=== PATIENT | male | born 1955 | race Caucasian/White ===

== ENCOUNTER 2019-05-27 05:44 | Outpatient (RCR) | payer OTHER, SELFPAY | END 2019-05-30 00:01 | LOC: ONCMED 05:44 | PROVIDERS: Family Provider Internal Medicine; Visit Provider Nurse Practitioner | DX: Z51.12 Encounter for antineoplastic immunotherapy (principal); C43.71 Malignant melanoma of right lower limb, including hip; C77.4 Secondary and unspecified malignant neoplasm of inguinal and lower limb lymph nodes; I10 Essential (primary) hypertension; E78.5 Hyperlipidemia, unspecified; E11.9 Type 2 diabetes mellitus without complications; K21.9 Gastro-esophageal reflux disease without esophagitis; L50.8 Other urticaria; D50.9 Iron deficiency anemia, unspecified; Z72.89 Other problems related to lifestyle; F17.220 Nicotine dependence, chewing tobacco, uncomplicated; R51 Headache; Z79.84 Long term (current) use of oral hypoglycemic drugs; Z87.01 Personal history of pneumonia (recurrent) | CPT/HCPCS: 36415; 80053; 83615; 84443; 85025; 96413 ×2; 99214; J1642 ×2; J7050 ×2; J9299 ×4 ==

== ENCOUNTER 2019-06-25 05:32 | Outpatient (RCR) | payer OTHER, SELFPAY | END 2019-06-30 00:01 | LOC: ONCMED 05:32 | PROVIDERS: Family Provider Internal Medicine; Visit Provider Nurse Practitioner | DX: Z51.12 Encounter for antineoplastic immunotherapy (principal); C43.71 Malignant melanoma of right lower limb, including hip; C77.4 Secondary and unspecified malignant neoplasm of inguinal and lower limb lymph nodes; R51 Headache; E87.6 Hypokalemia; Z79.899 Other long term (current) drug therapy; I10 Essential (primary) hypertension; E78.5 Hyperlipidemia, unspecified; E11.9 Type 2 diabetes mellitus without complications; K21.9 Gastro-esophageal reflux disease without esophagitis; L50.9 Urticaria, unspecified ==

== ENCOUNTER 2019-07-23 05:40 | Outpatient (RCR) | payer BC, SELFPAY ==
[2019-07-09] MEDS: sodium chloride 0.9% 250 ML 999 ML IV (13:16)
[2019-07-23 08:36] LABS: Basophils % 0.5 %; Eosinophils # 0.3 10^3/uL (0.0-0.8); Eosinophils % 4.2 %; Hematocrit 34.3 % (42.0-52.0); Hemoglobin 11.5 g/dL (11.7-16.6); Lymphocytes # 1.7 10^3/uL (0.8-4.8); Mean Corpuscular HGB Conc 33.5 g/dL (30.0-36.0); Mean Corpuscular Volume 95.5 fL (80-94); Mean Platelet Volume 9.8 fL (7.4-10.4); Monocytes # 0.5 10^3/uL (0.2-0.9); Monocytes % 8.7 %; Neutrophils # 3.4 10^3/uL (1.8-7.7); Neutrophils % 57.4 %; Nucleated Red Blood Cells % 0 %; Platelet Count 206 10^3/cmm (130-400); Red Blood Count 3.59 10^6/uL (4.1-5.3); White Blood Count 5.9 10^3/uL (4.0-10.0)
[2019-07-23 08:56] LABS: Alanine Aminotransferase 22 U/L (0-41); Albumin Level 4.1 g/dL (3.5-5.2); Alkaline Phosphatase 127 IU/L (40-130); Chloride 102 mmol/L (98-107); Potassium 3.4 mmol/L (3.5-5.1); Sodium 141 mmol/L (136-145)
[2019-07-23 09:37] LABS: Anion Gap 15.4 (5-19); Aspartate Amino Transferase 14 U/L (0-40); Blood Urea Nitrogen 13 mg/dL (8-23); Calcium 9.2 mg/Dl (8.8-10.2); Carbon Dioxide 27 mmol/L (22-29); Globulin 2.1 g/dL (1.3-4.6); Glucose 164 mg/dL (74-106); Thyroid Stimulating Hormone 1.58 uIU/mL (0.27-4.20); Total Bilirubin 0.2 mg/dL (0.15-1.2); Total Protein 6.4 g/dL (6.6-8.7)
[2019-07-23 11:28] LABS: Iron 76 ug/dL (59-158); Percent Saturation 43.6 % (20-50); Total Iron Binding Capacity 174 mg/dL; Unsaturated Iron Binding 98 ug/dL (112-347); Vitamin B12 273 pg/mL (232-1245)
[2019-07-23 12:02] LABS: Cortisol Random 0.65 mcg/dL (2.47-19.5)
--- NOTE | 2019-07-25 13:11 | ONC FU_ITS ---
Dr. Sterling Patient Follow-Up Note Patient: Alfonso Grant Unit #: [id number]: 1955 Dicatated By: Robel Sterling M.D.Date of Visit:Jul 23, 2019 Onc Med Follow-up/Prog Note Chief Complaint: Melanoma. History of Present Illness: This is a 63 year-old man with melanoma of the right calcaneal region, stage IIIA (pT2a, pN2a, M0) at initial diagnosis in 2015, but with subsequent right inguinal lymph node recurrence. He had seen Dr. Ortiz in May 2016 after he had become aware of a change in a mole on his right heel. The initial biopsy showed melanoma with a Breslow depth of 1.6 mm with no ulcerations and no mitoses identified. He was referred to Dr. Messer in [place]. On 07/03/2016 he underwent wide excision with skin graft and with sentinel right inguinal lymph node biopsy. Pathology showed acral lentiginous melanoma measuring 1.4 x 1.4 cm. The residual tumor had a Breslow depth of 0.8 mm. There was no ulceration noted and there were 0 mitoses/square millimeter. A total of 3 sentinel lymph nodes were excised, 2 of which were positive for metastatic melanoma on SOX-10 and MART-1 stains. The largest size of metastatic focus measured 0.4 mm. MRI of the abdomen on 07/13/2016 showed no lymphadenopathy or other evidence of metastatic disease. PET/CT at that time also showed no evidence for metabolically active malignancy. On 07/24/2016 he underwent right inguinal lymph node dissection. There was no additional metastatic lymph node involvement. He had medical oncology consultation with Dr. Briseno, and he was recommended to consider adjuvant therapy with ipililumab. I had seen him for a second opinion evaluation on 09/10/2016. Given his high risk for recurrence, I also recommended the adjuvant therapy. He then proceeded with the high-dose ipililumab regimen, completing 4 cycles of treatment from 09/19/2016 through 11/20/2016. He experienced multiple toxicities with the treatment. During subsequent follow-up he had done well until October 2018 when his surveillance PET/CT showed a small focus of uptake in the subcutaneous tissue of the upper medial right thigh, suspicious for neoplastic involvement. There were no other sites of abnormal uptake on that study. He then underwent surgical resection of the involved area on 12/15/2018, pathology confirming metastatic melanoma. A BRAF mutation was not detected. He began treatment with nivolumab on 01/06/2019. Several days following his initial infusion he was admitted to the hospital with pneumonia/hypoxia. He developed atrial fibrillation/RVR, requiring cardioversion. He was discharged on 01/19/2019. His further treatment with nivolumab was delayed. On 01/26/2019 he was admitted to [facility] after presenting to the emergency room with respiratory distress. His chest x-ray showed development of moderate left pleural effusion with probable atelectasis or pneumonia of the left lower lobe. His echocardiogram showed loculated pericardial effusion with large bilateral pleural effusions. The pericardial effusion was noted to be more prominent towards the apex and it contained particulate material, suspicious for metastatic disease to the pericardium. He underwent thoracentesis. The pleural fluid studies included normal LDH and a negative Gram stain. The morphologic assessment showed benign appearing mesothelial cells in a background of mild mixed inflammation and blood. There was no atypia or malignancy seen. He was discharged home on 01/28/2019 on continued antibiotic coverage with Cefdnir 300 mg twice a day. His other medical illnesses include hypertension, hyperlipidemia, type II diabetes, and GERD. He also has a history of chronic urticaria. He has a very minimal smoking history, and he had quit smoking in 1980. He was seen her for a follow-up visit on 01/30/2019. He was still very weak, and he had very marginal performance status. He was still significantly anemic with his hemoglobin low at 9.2 g. He had low transferrin saturation 9.8%, consistent with iron deficiency. At that point he continued antibiotic therapy for the pneumonia. I opted to have him start empiric steroid therapy with prednisone, and he also began diuretic therapy with furosemide, as he had significant fluid retention. He returned on 02/12/2019 for parenteral iron replacement with Injectafer. Restaging PET/CT on 02/16/2018 showed no abnormal pulmonary parenchymal uptake. A small left pleural effusion showed no suspicious activity. There was no right pleural effusion noted and no pericardial effusion noted. There was no abnormal lymph node uptake, and no evidence for metabolically active malignancy. I had seen him for a follow-up visit on 02/19/2019. At that point he was feeling much better. He received his second infusion of Injectafer, and with the PET/CT showing no evidence of active malignancy, we opted to continue his treatment with nivolumab. On 03/04/2019 he returned for cycle 2 of nivolumab, administered at the 2-week dosing schedule. He tolerated it well, and he was then able to continue treatment at 2- week intervals. As of 07/11/2019 he received his 11th cycle of nivolumab at the 240 mg/m??? dosage. He is seen for a follow-up visit. He has been feeling pretty good generally. His main complaint is that he is still tired all the time, and reports having excessive somnolence. He is working part-time, but he says that it wears him out. His ECOG score is 1. His appetite is not real good, but he has gained weight. He does not have fever or night sweats. He has no shortness of breath, cough, or chest pain. He has no GI/ complaints other than a little bit of heartburn. He has normal pain in his knees, but no other joint or bone pain. He does not complain of headache or dizziness. He has no focal neurologic symptoms. Medications: Acetaminophen Extra Strength 1 - 2 Tablet (of 500 mg) Oral PRN, Amiodarone HCl 1 Tablet (of 200 mg) Oral daily, Cetirizine HCl 1 Tablet (of 10 mg) Oral daily PRN, Eliquis 1 Tablet (of 2.5 mg) Oral b.i.d., Furosemide 1 (20 mg) Tablet Oral daily, Gabapentin 2 Capsule (of 300 mg) Oral at bedtime, Levothyroxine Sodium 1 Tablet (of 50 mcg) Oral daily, Lipitor 1 (20 mg) Tablet Oral daily, LORazepam 1 Tablet (of 0.5 mg) Oral daily, metFORMIN HCl 1 (500 mg) Tablet Oral daily, Mirtazapine 1 Tablet (of 15 mg) Oral at bedtime, Omeprazole 1 Tablet (of 20 mg) Tablet, enteric coated Oral b.i.d., predniSONE 1 Tablet (of 2.5 mg) Oral every am Allergies: No Known Allergies. Review of Systems: Constitutional - His energy is generally pretty good. He is working. His appetite is good and his weight is up some. No fever, chills, hot flashes, or night sweats. ECOG score is 1, ENMT - He has sinus congestion/drainage. No mouth sores. No sore throat or difficulty swallowing, Hematologic/Lymphatic - No abnormal bruising or bleeding, Respiratory - No shortness of breath. No cough. No pleuritic pain or hemoptysis, Cardiovascular - No angina pain. No palpitations, Gastrointestinal - No nausea or vomiting. He has occasional heartburn. No diarrhea or constipation. No blood in the stool or black stools, Genitourinary (M) - No dysuria or hematuria. No urinary frequency. No urgency or incontinence, Musculoskeletal - He has pain in his knees, Integumentary - No skin complications, Neurologic - No headache or dizziness. No numbness/paresthesias or other focal neurologic symptoms, Psychiatric - No anxiety or depression. No insomnia. Vital Signs: Performed on Jul 23, 2019 09:32 Height - 69.00 in Weight - 200.0 lbs (HIGH) BSA - 2.07 sq.m BMI - 29.54 Temperature - 98.4 F Pulse - 60 /min Respiration - 18 /min BP - 119/72 mm(hg) O2 Sat - 97 % Pain - 0 Physical Examination: Constitutional - He looks pretty good generally, Eyes - Sclerae nonicteric. Conjunctivae clear, ENMT - No lesions noted in the oral cavity, Hematologic/Lymphatic - No cervical, clavicular, or axillary adenopathy, Respiratory - Lungs sound clear, Cardiovascular - Heart rhythm is regular. There is no murmur, gallop, or rub noted, Abdomen - Soft. Liver and spleen are not enlarged. There is no abdominal mass noted and there is no obvious ascites. There is no inguinal adenopathy noted, Extremities - There is still mild swelling of the right leg. There is otherwise no edema, Neurologic - There are no focal neurologic deficits noted. Lab/Imaging: Test performed on Jul 23, 2019 08:16 Sodium 141 mmol/L TSH 1.58 uIU/mL Potassium 3.4 mmol/L Chloride 102 mmol/L CO2 27 mmol/L Anion Gap 15.4 BUN 13 mg/dL Creatinine 1.0 mg/dL Cr Clearance (Est) 99.5400 mL/min eGFR 76.0 mL/min Glucose 164 mg/dL Calcium 9.2 mg/Dl Protein, Total 6.4 g/dL Albumin 4.1 g/dL Globulin 2.1 g/dL Bilirubin, Total 0.2 mg/dL ALT (SGPT) 22 U/L AST (SGOT) 14 U/L Alkaline Phosphatase 127 IU/L WBC 5.9 10 3/uL RBC 3.59 10 6/uL HGB 11.5 g/dL HCT 34.3 % MCV 95.5 fL MCH 32.0 pg MCHC 33.5 g/dL RDW 12.0 % Platelet Count 206 10 3/cmm MPV 9.8 fL Neutrophils 3.4 10 3/uL Lymphocytes 1.7 10 3/uL Monocytes 0.5 10 3/uL Eosinophils 0.3 10 3/uL Basophils 0.0 10 3/uL Neutrophil % 57.4 % Lymphocyte % 29.0 % Monocyte % 8.7 % Eosinophil % 4.2 % Basophils % 0.5 % Impression: 1. Patient with melanoma involving the right calcaneal region, stage IIIA (pT2a, pN2a, M0) at initial diagnosis in 2015. 2. His intial treatment included biopsy in May 2016 followed by wide excision with skin graft and with sentinel right inguinal lymph node biopsy on 07/03/2016 followed by right inguinal lymph node dissection on 07/24/2016. 3. He was given adjuvant therapy with ipililumab 10 mg/kg for 4 cycles, completed in October 2016. He experienced multiple toxicities with the treatment. 4. In November 2018 he had biopsy-proven recurrence in the right inguinal lymph node. 5. On 01/06/2019 he began treatment with nivolumab. His other medical illnesses include: 6. Hypertension. 7. Hyperlipidemia. 8. Type II diabetes. 9. GERD. 10. Chronic urticaria. Following his initial infusion of nivolumab he required admission to the hospital with pneumonia/hypoxia. His clinical course was complicated by atrial fibrillation/RVR, requiring cardioversion. His further treatment with nivolumab was delayed. He was then admitted admitted to the hospital again with respiratory distress. By echocardiogram he had bilateral pleural effusions and loculated pericardial effusion. The pericardial effusion was noted to contain particulate material, suspicious for metastatic disease. He underwent thoracentesis. There were no malignant cells seen in the pleural fluid. At his follow-up visit on 01/30/2019 he had very poor performance status, and he was still moderately anemic. His serum iron studies were consistent with iron deficiency. He continued antibiotic therapy for the pneumonia, and at that point I had him start empiric steroid therapy with prednisone. He began parenteral iron replacement with Injectafer on 02/12/2019. His restaging PET/CT on showed no evidence for active malignancy. He completed his second infusion of Injectafer on 02/19/2019, and on 03/04/2019 he continued with cycle 2 of nivolumab at the 2-week dosing schedule. He tolerated it well, and he then continued nivolumab at 240 mg/m??? every 2 weeks. During treatment he has had to start thyroid replacement for hypothyroidism, but he has otherwise continued to tolerate it well. He has now completed 11 cycles at that dose/schedule. He appears to be doing pretty well clinically, though he does complain of persistent fatigue and excessive somnolence. Plan: He will continue with cycle 12 of nivolumab at 240 mg by IV infusion. He will continue levothyroxine at 50 ???g daily. He will return for treatment in 2 weeks and for a follow-up visit in 4 weeks. In the meantime, I will check a random cortisol level and I also will check a B12 level. He will have further evaluation as indicated. Signed By: Robel Sterling M.D. <<Signature on File>>
== END 2019-07-31 23:59 | disposition home or self-care (01) ==
LOC: ONCMED 05:40
PROVIDERS: Family Provider Internal Medicine; Visit Provider Internal Medicine Medical Oncology
DX: Z51.12 Encounter for antineoplastic immunotherapy (principal); C43.71 Malignant melanoma of right lower limb, including hip; C77.4 Secondary and unspecified malignant neoplasm of inguinal and lower limb lymph nodes; D50.9 Iron deficiency anemia, unspecified; I48.91 Unspecified atrial fibrillation; I10 Essential (primary) hypertension; E78.5 Hyperlipidemia, unspecified; E11.9 Type 2 diabetes mellitus without complications; K21.9 Gastro-esophageal reflux disease without esophagitis; L50.8 Other urticaria; Z87.891 Personal history of nicotine dependence; Z87.01 Personal history of pneumonia (recurrent); Z79.84 Long term (current) use of oral hypoglycemic drugs; Z79.52 Long term (current) use of systemic steroids; Z98.890 Other specified postprocedural states
CPT/HCPCS: 80053; 82533; 82607; 83540; 83550; 84443; 85025; 96413; 99214; A4222; J7050; J9299

== ENCOUNTER 2019-07-28 11:16 | Outpatient (CLI) | payer BC, SELFPAY ==
[2019-07-28 11:41] VITALS: BMI 30.5
[2019-07-28 11:57] VITALS: BP 140/78; PULSE 56; RESP 18; TEMP 36.8; O2SAT 100
[2019-07-28] MEDS: cosyntropin 0.25 mg SDV (12:22)
[2019-07-28 13:21] LABS: Cosyntropin Baseline 0.86 mg/dL
[2019-07-28 15:14] LABS: Cosyntropin 1 Hour 2.76 mg/dL
[2019-07-28 19:46] LABS: Cosyntropin 30 Minute 2.45 mcg/dL
== END 2019-07-28 11:17 | disposition home or self-care (01) ==
LOC: GILAB 11:31
PROVIDERS: Family Provider Internal Medicine; PCP Internal Medicine; Visit Provider Internal Medicine Medical Oncology
DX: E27.40 Unspecified adrenocortical insufficiency (principal); C43.71 Malignant melanoma of right lower limb, including hip
CPT/HCPCS: 36415; 36591; 82533; 96374; J0834; J1642

== ENCOUNTER 2019-08-06 13:25 | Outpatient (CLI) | payer BC, SELFPAY ==
--- NOTE | 2019-08-06 13:32 | XRR_ITS ---
PROCEDURE INFORMATION: Exam: XR Chest, 2 Views Exam date and time: 08/06/2019 1:33 PM Age: 64 years old Clinical indication: Smoker's cough; Additional info: Cough, chest congestion TECHNIQUE: Imaging protocol: XR of the chest Views: 2 views. COMPARISON: CR Chest 2 views* [id number] 01/30/2019 11:07 AM FINDINGS: Lungs: Unremarkable. No consolidation. Pleural space: Unremarkable. No pleural effusion. No pneumothorax. Heart/Mediastinum: Unremarkable. No cardiomegaly. Bones/joints: Unremarkable. Right side central line extending into the SVC. Comparison to prior left lower lobe pleural effusion has now resolved XR/XR chest 2V* [id number] IMPRESSION: No acute findings. Right central line in good position. Previously visible left lower lobe effusion has resolved
== END 2019-08-06 13:26 | disposition home or self-care (01) ==
LOC: RAD 13:29
PROVIDERS: Family Provider Internal Medicine; PCP Internal Medicine; Visit Provider Internal Medicine Medical Oncology
DX: R09.89 Other specified symptoms and signs involving the circulatory and respiratory systems (principal); R05 Cough
CPT/HCPCS: 71046

== ENCOUNTER 2019-08-20 05:38 | Outpatient (RCR) | payer BC, SELFPAY ==
[2019-08-20 09:06] LABS: Basophils % 0.6 %; Eosinophils # 0.4 10^3/uL (0.0-0.8); Eosinophils % 6.1 %; Hemoglobin 11.8 g/dL (11.7-16.6); Lymphocytes # 2.3 10^3/uL (0.8-4.8); Lymphocytes % 33.5 %; Mean Corpuscular HGB Conc 33.7 g/dL (30.0-36.0); Mean Corpuscular Hemoglobin 32.8 pg (28.0-34.0); Mean Corpuscular Volume 97.2 fL (80-94); Mean Platelet Volume 9.5 fL (7.4-10.4); Monocytes # 0.4 10^3/uL (0.2-0.9); Monocytes % 5.9 %; Neutrophils # 3.7 10^3/uL (1.8-7.7); Neutrophils % 53.8 %; Nucleated Red Blood Cells % 0 %; Platelet Count 244 10^3/cmm (130-400); Red Cell Distribution Width 11.9 % (12.1-15.1); White Blood Count 6.9 10^3/uL (4.0-10.0)
[2019-08-20 09:31] LABS: Alanine Aminotransferase 18 U/L (0-41); Alkaline Phosphatase 130 IU/L (40-130); Anion Gap 16.4 (5-19); Aspartate Amino Transferase 18 U/L (0-40); Blood Urea Nitrogen 10 mg/dL (8-23); Calcium 9.2 mg/dL (8.5-10.5); Carbon Dioxide 28 mmol/L (22-29); Chloride 102 mmol/L (98-107); Globulin 3.3 g/dL (1.3-4.6); Glomerular Filtration Rate 75.7 mL/min (90-130); Glucose 136 mg/dL (65-115); Lactate Dehydrogenase 157 U/L (135-225); Potassium 3.4 mmol/L (3.5-5.1); Sodium 143 mmol/L (136-145); Thyroid Stimulating Hormone 1.71 uIU/mL (0.27-4.20); Total Bilirubin 0.3 mg/dL (0.15-1.2); Total Protein 7.3 g/dL (6.6-8.7)
--- NOTE | 2019-08-24 09:16 | ONC FU_ITS ---
[facility] Patient Note Patient: Alfonso Grant Unit #: [id number]: 1955 Dictated By: Martínez BookerDate of Visit: Aug 20, 2019 Onc MED Follow-Up/Prog Note Chief Complaint: Melanoma. History of Present Illness: Mr Grant is a 63 year-old man with melanoma of the right calcaneal region, stage IIIA (pT2a, pN2a, M0) at initial diagnosis in 2015, but with subsequent right inguinal lymph node recurrence. He had seen Dr. Ortiz in May 2016 after he had become aware of a change in a mole on his right heel. The initial biopsy showed melanoma with a Breslow depth of 1.6 mm with no ulcerations and no mitoses identified. He was referred to Dr. Messer in [place]. On 07/03/2016 he underwent wide excision with skin graft and with sentinel right inguinal lymph node biopsy. Pathology showed acral lentiginous melanoma measuring 1.4 x 1.4 cm. The residual tumor had a Breslow depth of 0.8 mm. There was no ulceration noted and there were 0 mitoses/square millimeter. A total of 3 sentinel lymph nodes were excised, 2 of which were positive for metastatic melanoma on SOX-10 and MART-1 stains. The largest size of metastatic focus measured 0.4 mm. MRI of the abdomen on 07/13/2016 showed no lymphadenopathy or other evidence of metastatic disease. PET/CT at that time also showed no evidence for metabolically active malignancy. On 07/24/2016 he underwent right inguinal lymph node dissection. There was no additional metastatic lymph node involvement. He had medical oncology consultation with Dr. Briseno, and he was recommended to consider adjuvant therapy with ipililumab. I had seen him for a second opinion evaluation on 09/10/2016. Given his high risk for recurrence, Dr Sterling also recommended the adjuvant therapy. He then proceeded with the high-dose ipililumab regimen, completing 4 cycles of treatment from 09/19/2016 through 11/20/2016. He experienced multiple toxicities with the treatment. During subsequent follow-up he had done well until October 2018 when his surveillance PET/CT showed a small focus of uptake in the subcutaneous tissue of the upper medial right thigh, suspicious for neoplastic involvement. There were no other sites of abnormal uptake on that study. He then underwent surgical resection of the involved area on 12/15/2018, pathology confirming metastatic melanoma. A BRAF mutation was not detected. He began treatment with nivolumab on 01/06/2019. Several days following his initial infusion he was admitted to the hospital with pneumonia/hypoxia. He developed atrial fibrillation/RVR, requiring cardioversion. He was discharged on 01/19/2019. His further treatment with nivolumab was delayed. On 01/26/2019 he was admitted to [facility] after presenting to the emergency room with respiratory distress. His chest x-ray showed development of moderate left pleural effusion with probable atelectasis or pneumonia of the left lower lobe. His echocardiogram showed loculated pericardial effusion with large bilateral pleural effusions. The pericardial effusion was noted to be more prominent towards the apex and it contained particulate material, suspicious for metastatic disease to the pericardium. He underwent thoracentesis. The pleural fluid studies included normal LDH and a negative Gram stain. The morphologic assessment showed benign appearing mesothelial cells in a background of mild mixed inflammation and blood. There was no atypia or malignancy seen. He was discharged home on 01/28/2019 on continued antibiotic coverage with Cefdnir 300 mg twice a day. His other medical illnesses include hypertension, hyperlipidemia, type II diabetes, and GERD. He also has a history of chronic urticaria. He has a very minimal smoking history, and he had quit smoking in 1980. He was seen her for a follow-up visit on 01/30/2019. He was still very weak, and he had very marginal performance status. He was still significantly anemic with his hemoglobin low at 9.2 g. He had low transferrin saturation 9.8%, consistent with iron deficiency. At that point he continued antibiotic therapy for the pneumonia. It was opted to have him start empiric steroid therapy with prednisone, and he also began diuretic therapy with furosemide, as he had significant fluid retention. He returned on 02/12/2019 for parenteral iron replacement with Injectafer. Restaging PET/CT on 02/16/2018 showed no abnormal pulmonary parenchymal uptake. A small left pleural effusion showed no suspicious activity. There was no right pleural effusion noted and no pericardial effusion noted. There was no abnormal lymph node uptake, and no evidence for metabolically active malignancy. Dr Sterling had seen him for a follow-up visit on 02/19/2019. At that point he was feeling much better. He received his second infusion of Injectafer, and with the PET/CT showing no evidence of active malignancy, we opted to continue his treatment with nivolumab. On 03/04/2019 he returned for cycle 2 of nivolumab, administered at the 2-week dosing schedule. He tolerated it well, and he was then able to continue treatment at 2- week intervals. As of 08/06/2019 he received his 13th cycle of nivolumab at the 240 mg/m??? dosage. Mr. Grant is here today for follow-up. He states overall he is doing well. He denies any pain. He has had no nausea or vomiting. He denies any new shortness of breath or cough. He has had no fever or chills. He states his only concern is that he has not been sleeping well. However he states he is been helping take care of his mom who has dementia so is up and down a lot at night. He has not tried anything in particular for sleep in the past. We discussed using Benadryl or possibly melatonin which I did recommend the rapid release melatonin if he is going to try it. He could also try Ativan if he has it at home. He denies any bowel or bladder changes. He states he is had no abdominal pain or diarrhea. He states overall he feels he is doing well. He has had no hematuria or any signs of rash or skin changes. His ECOG is 1. Past Medical History: Chronic urticaria Diabetes type II Gastroesophageal reflux disease Hyperlipidemia Hypertension Melanoma Past Surgical History: Thoracentesis Right inguinal lymph node biopsy/excision in 2019 Right inguinal lymph node dissection in 2017 Wide excision of melanoma with skin graft and sentinel right inguinal lymph node biopsy in 2017 Biopsy of skin lesion right heel in 2015 Arthroscopic right knee surgery in 2011 Left shoulder surgery in 2001 Right shoulder surgery in 1999 Tonsillectomy in 1963 - with adenoidectomy Allergies: No Known Allergies. Medications: Acetaminophen Extra Strength 1 - 2 Tablet (of 500 mg) Oral PRN Amiodarone HCl 1 Tablet (of 200 mg) Oral daily Cetirizine HCl 1 Tablet (of 10 mg) Oral daily PRN Eliquis 1 Tablet (of 2.5 mg) Oral b.i.d. Furosemide 1 (20 mg) Tablet Oral daily Gabapentin 2 Capsule (of 300 mg) Oral at bedtime Levothyroxine Sodium 1 Tablet (of 50 mcg) Oral daily Lipitor 1 (20 mg) Tablet Oral daily LORazepam 1 Tablet (of 0.5 mg) Oral daily metFORMIN HCl 1 (500 mg) Tablet Oral daily Mirtazapine 1 Tablet (of 15 mg) Oral at bedtime Omeprazole 1 Tablet (of 20 mg) Tablet, enteric coated Oral b.i.d. predniSONE 1 Tablet (of 2.5 mg) Oral every am Family History: Mr. Grant's father is : diabetes, and heart disease, and hypertension. His father has heart disease and diabetes, and he has been treated for colon cancer. He is still living at age 86. Mother has diabetes and dementia and is still living at age 86. His paternal grandfather also had colon cancer, and his paternal grandmother had breast cancer. A great grandfather on his father's side of melanoma. 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 Mr. Grant quit smoking 35 years ago but had smoked 0.5 packs/day for 3 years. He is an active drinker.He consumes 2 drinks/day. He has a history of smoking 1/2 pack of cigarettes daily for 2-3 years. He quit smoking in 1980. He chews 1 can of chewing tobacco per week . He currently drinks 2 cans of beer daily. Review Of Symptoms: Constitutional Denies fevers, chills, night sweats, excessive fatigue or weight loss. Still having fatigue but is not sleeping well at night. Allergic/Immunologic No reactions. Eyes Denies significant visual changes. No diplopia. No amaurosis. ENMT Denies changes in hearing, sore throat, mouth sores, difficulty or changes in swallowing ability, and/or sinus drainage. Hematologic/Lymphatic Denies easy bruising or bleeding. The patient denies any tender or palpable lymph nodes. Respiratory Denies dyspnea on exertion, chest pain, cough or hemoptysis. Denies orthopnea. Cardiovascular Denies anginal chest pain, palpitations or orthopnea. Gastrointestinal Denies nausea, vomiting, diarrhea, GI bleeding, or constipation. Denies change in bowel habits and/or stool color, no heartburn or early satiety. Genitourinary (M) Denies hematuria, dysuria, increased frequency, urgency, hesitancy or incontinence. Musculoskeletal Denies joint pain, swelling or redness. No decreased range of motion. Integumentary Denies chronic rashes, inflammation, ulcerations or skin changes. Neurologic Denies headache, blurred vision, and no areas of focal weakness or numbness. Normal gait. No sensory problems. Psychiatric Denies insomnia, depression, thomas or mood swings. Vital Signs: Performed on Aug 20, 2019 09:58 Height - 69.00 in Weight - 195.0 lbs (LOW) BSA - 2.04 sq.m BMI - 28.80 Temperature - 97.5 F (LOW) Pulse - 51 /min (LOW) Respiration - 16 /min BP - 116/69 mm(hg) O2 Sat - 98 % Pain - 0 Fatigue - 5,1 - No physically strenuous activity, but ambulatory and able to carry out light or sedentary work (e.g. office work, light house work). (ECOG) Physical Examination: Constitutional Alert, oriented, no acute distress. Skin pink, warm and dry. Head Normocephalic; atraumatic. Eyes Conjunctivae and sclerae are clear and without icterus. Pupils are reactive and equal. Neck Supple without masses or thyromegaly. No jugular venous distension. Hematologic/Lymphatic No petechiae or purpura. No tender or palpable lymph nodes in the cervical or supraclavicular areas. Respiratory Lungs are clear to auscultation without rhonchi or wheezing. Cardiovascular Regular rate and rhythm of heart without murmurs,clicks, gallops or rubs. Chest Right subclavian venous access device is unremarkable. Back/Spine Non-tender to palpation. Extremities No visible deformities, no cyanosis, clubbing or edema. Musculoskeletal No tenderness or swelling, normal range of motion without obvious weakness. Integumentary No rashes or lesions. Neurologic No sensory or motor deficits, normal cerebellar function, normal gait. Psychiatric Alert and oriented times three. Coherent speech. Verbalizes understanding of our discussions today. Laboratory:Test performed on Aug 20, 2019 08:40 LDH (Total) 157 U/L Sodium 143 mmol/L TSH 1.71 uIU/mL Potassium 3.4 mmol/L Chloride 102 mmol/L CO2 28 mmol/L Anion Gap 16.4 BUN 10 mg/dL Creatinine 1.0 mg/dL Cr Clearance (Est) 95.82 mL/min eGFR 75.7 mL/min Glucose 136 mg/dL Calcium 9.2 mg/dL Protein, Total 7.3 g/dL Albumin 4.0 g/dL Globulin 3.3 g/dL Bilirubin, Total 0.3 mg/dL ALT (SGPT) 18 U/L AST (SGOT) 18 U/L Alkaline Phosphatase 130 IU/L WBC 6.9 10 3/uL RBC 3.60 10 6/uL HGB 11.8 g/dL HCT 35.0 % MCV 97.2 fL MCH 32.8 pg MCHC 33.7 g/dL RDW 11.9 % Platelet Count 244 10 3/cmm MPV 9.5 fL Neutrophils 3.7 10 3/uL Lymphocytes 2.3 10 3/uL Monocytes 0.4 10 3/uL Eosinophils 0.4 10 3/uL Basophils 0.0 10 3/uL Neutrophil % 53.8 % Lymphocyte % 33.5 % Monocyte % 5.9 % Eosinophil % 6.1 % Basophils % 0.6 % Test performed on Jul 23, 2019 10:10 Cortisol 0.65 mcg/dL Test performed on Jul 23, 2019 08:16 Vitamin B12 273 pg/mL Impression: 1. Patient with melanoma involving the right calcaneal region, stage IIIA (pT2a, pN2a, M0) at initial diagnosis in 2015. 2. His intial treatment included biopsy in May 2016 followed by wide excision with skin graft and with sentinel right inguinal lymph node biopsy on 07/03/2016 followed by right inguinal lymph node dissection on 07/24/2016. 3. He was given adjuvant therapy with ipililumab 10 mg/kg for 4 cycles, completed in October 2016. He experienced multiple toxicities with the treatment. 4. In November 2018 he had biopsy-proven recurrence in the right inguinal lymph node. 5. On 01/06/2019 he began treatment with nivolumab. His other medical illnesses include: 6. Hypertension. 7. Hyperlipidemia. 8. Type II diabetes. 9. GERD. 10. Chronic urticaria. Following his initial infusion of nivolumab he required admission to the hospital with pneumonia/hypoxia. His clinical course was complicated by atrial fibrillation/RVR, requiring cardioversion. His further treatment with nivolumab was delayed. He was then admitted admitted to the hospital again with respiratory distress. By echocardiogram he had bilateral pleural effusions and loculated pericardial effusion. The pericardial effusion was noted to contain particulate material, suspicious for metastatic disease. He underwent thoracentesis. There were no malignant cells seen in the pleural fluid. At his follow-up visit on 01/30/2019 he had very poor performance status, and he was still moderately anemic. His serum iron studies were consistent with iron deficiency. He continued antibiotic therapy for the pneumonia, and at that point I had him start empiric steroid therapy with prednisone. He began parenteral iron replacement with Injectafer on 02/12/2019. His restaging PET/CT on showed no evidence for active malignancy. He completed his second infusion of Injectafer on 02/19/2019, and on 03/04/2019 he continued with cycle 2 of nivolumab at the 2-week dosing schedule. He tolerated it well, and he then continued nivolumab at 240 mg/m??? every 2 weeks. During treatment he has had to start thyroid replacement for hypothyroidism, but he has otherwise continued to tolerate it well. He has now completed 11 cycles at that dose/schedule. He appears to be doing pretty well clinically, though he does complain of persistent fatigue and excessive somnolence. He states that is no worse, but not alot better either. Plan: 1. Proceed with cycle 13 of nivolumab at 240 mg by IV infusion. 2. Today's labs were reviewed in detail discussed with Mr. Mrs. rangel and a copy was given to them. WBC 6.9, hemoglobin 11.8, platelets 1 44,000 ANC is 3700. Creatinine 1.0 LFTs are normal LDH is 157. Potassium is 3.4 but he is chronically low and this is actually improved. He denies leg cramps or palpitations. 3. He is advised that he could try Benadryl, melatonin or lorazepam to help him sleep but to let us know if this is not working or if he wanted to try something different. 4. We will plan to see him back in 4 weeks with CBC CMP TSH. He will return in 2 weeks for treatment with nivolumab. 5. Mr. Lloyd was instructed to contact us in the interim should questions or problems arise. Signed By: Martínez Booker-, [facility] Robel Sterling MD <<Signature on File>>
== END 2019-08-29 23:59 | disposition home or self-care (01) ==
LOC: ONCMED 05:38
PROVIDERS: Family Provider Internal Medicine; PCP Internal Medicine; Visit Provider Nurse Practitioner
DX: Z51.12 Encounter for antineoplastic immunotherapy (principal); C43.71 Malignant melanoma of right lower limb, including hip; C77.4 Secondary and unspecified malignant neoplasm of inguinal and lower limb lymph nodes; I48.91 Unspecified atrial fibrillation; I10 Essential (primary) hypertension; E78.5 Hyperlipidemia, unspecified; E11.9 Type 2 diabetes mellitus without complications; K21.9 Gastro-esophageal reflux disease without esophagitis; L50.9 Urticaria, unspecified; D50.9 Iron deficiency anemia, unspecified; Z79.01 Long term (current) use of anticoagulants; Z79.899 Other long term (current) drug therapy; Z79.84 Long term (current) use of oral hypoglycemic drugs; Z79.52 Long term (current) use of systemic steroids; F17.220 Nicotine dependence, chewing tobacco, uncomplicated; F10.20 Alcohol dependence, uncomplicated
CPT/HCPCS: 80053; 83615; 84443; 85025; 96413; 99214; J7050; J9299

== ENCOUNTER 2019-09-17 05:45 | Outpatient (RCR) | payer BC, SELFPAY ==
[2019-09-17 11:34] LABS: Basophils % 0.4 %; Eosinophils # 0.3 10^3/uL (0.0-0.8); Eosinophils % 3.4 %; Hematocrit 35.2 % (42.0-52.0); Hemoglobin 11.8 g/dL (11.7-16.6); Lymphocytes # 1.5 10^3/uL (0.8-4.8); Lymphocytes % 18.9 %; Mean Corpuscular HGB Conc 33.5 g/dL (30.0-36.0); Mean Corpuscular Hemoglobin 32.6 pg (28.0-34.0); Mean Corpuscular Volume 97.2 fL (80-94); Mean Platelet Volume 10.1 fL (7.4-10.4); Monocytes # 0.5 10^3/uL (0.2-0.9); Monocytes % 6.7 %; Neutrophils # 5.6 10^3/uL (1.8-7.7); Neutrophils % 70.3 %; Nucleated Red Blood Cells % 0 %; Platelet Count 212 10^3/cmm (130-400); Red Blood Count 3.62 10^6/uL (4.1-5.3); Red Cell Distribution Width 12.2 % (12.1-15.1); White Blood Count 7.9 10^3/uL (4.0-10.0)
[2019-09-17 11:55] LABS: Alanine Aminotransferase 27 U/L (0-41); Albumin Level 4.4 g/dL (3.5-5.2); Alkaline Phosphatase 151 IU/L (40-130); Anion Gap 17.9 (5-19); Aspartate Amino Transferase 22 U/L (0-40); Blood Urea Nitrogen 14 mg/dL (8-23); Calcium 9.2 mg/dL (8.5-10.5); Carbon Dioxide 26 mmol/L (22-29); Chloride 97 mmol/L (98-107); Globulin 3.1 g/dL (1.3-4.6); Glomerular Filtration Rate 51.4 mL/min (90-130); Glucose 208 mg/dL (65-115); Osmolality Calculated 286 mOsm/kg (285-295); Potassium 3.9 mmol/L (3.5-5.1); Sodium 137 mmol/L (136-145); Thyroid Stimulating Hormone 2.18 uIU/mL (0.27-4.20); Total Bilirubin 0.4 mg/dL (0.15-1.2); Total Protein 7.5 g/dL (6.6-8.7)
--- NOTE | 2019-09-20 09:59 | ONC FU_ITS ---
Dr. Sterling Patient Follow-Up Note Patient: Alfonso Grant Unit #: [id number]: 1955 Dicatated By: Robel Sterling M.D.Date of Visit:Sep 17, 2019 Onc Med Follow-up/Prog Note Chief Complaint: Melanoma. History of Present Illness: This is a 64 year-old man with melanoma of the right calcaneal region, stage IIIA (pT2a, pN2a, M0) at initial diagnosis in 2015, but with subsequent right inguinal lymph node recurrence. He had seen Dr. Ortiz in May 2016 after he had become aware of a change in a mole on his right heel. The initial biopsy showed melanoma with a Breslow depth of 1.6 mm with no ulcerations and no mitoses identified. He was referred to Dr. Messer in [place]. On 07/03/2016 he underwent wide excision with skin graft and with sentinel right inguinal lymph node biopsy. Pathology showed acral lentiginous melanoma measuring 1.4 x 1.4 cm. The residual tumor had a Breslow depth of 0.8 mm. There was no ulceration noted and there were 0 mitoses/square millimeter. A total of 3 sentinel lymph nodes were excised, 2 of which were positive for metastatic melanoma on SOX-10 and MART-1 stains. The largest size of metastatic focus measured 0.4 mm. MRI of the abdomen on 07/13/2016 showed no lymphadenopathy or other evidence of metastatic disease. PET/CT at that time also showed no evidence for metabolically active malignancy. On 07/24/2016 he underwent right inguinal lymph node dissection. There was no additional metastatic lymph node involvement. He had medical oncology consultation with Dr. Briseno, and he was recommended to consider adjuvant therapy with ipililumab. I had seen him for a second opinion evaluation on 09/10/2016. Given his high risk for recurrence, I also recommended the adjuvant therapy. He then proceeded with the high-dose ipililumab regimen, completing 4 cycles of treatment from 09/19/2016 through 11/20/2016. He experienced multiple toxicities with the treatment. During subsequent follow-up he had done well until October 2018 when his surveillance PET/CT showed a small focus of uptake in the subcutaneous tissue of the upper medial right thigh, suspicious for neoplastic involvement. There were no other sites of abnormal uptake on that study. He then underwent surgical resection of the involved area on 12/15/2018, pathology confirming metastatic melanoma. A BRAF mutation was not detected. He began treatment with nivolumab on 01/06/2019. Several days following his initial infusion he was admitted to the hospital with pneumonia/hypoxia. He developed atrial fibrillation/RVR, requiring cardioversion. He was discharged on 01/19/2019. His further treatment with nivolumab was delayed. On 01/26/2019 he was admitted to [facility] after presenting to the emergency room with respiratory distress. His chest x-ray showed development of moderate left pleural effusion with probable atelectasis or pneumonia of the left lower lobe. His echocardiogram showed loculated pericardial effusion with large bilateral pleural effusions. The pericardial effusion was noted to be more prominent towards the apex and it contained particulate material, suspicious for metastatic disease to the pericardium. He underwent thoracentesis. The pleural fluid studies included normal LDH and a negative Gram stain. The morphologic assessment showed benign appearing mesothelial cells in a background of mild mixed inflammation and blood. There was no atypia or malignancy seen. He was discharged home on 01/28/2019 on continued antibiotic coverage with Cefdnir 300 mg twice a day. His other medical illnesses include hypertension, hyperlipidemia, type II diabetes, and GERD. He also has a history of chronic urticaria. He has a very minimal smoking history, and he had quit smoking in 1980. He was seen her for a follow-up visit on 01/30/2019. He was still very weak, and he had very marginal performance status. He was still significantly anemic with his hemoglobin low at 9.2 g. He had low transferrin saturation 9.8%, consistent with iron deficiency. At that point he continued antibiotic therapy for the pneumonia. I opted to have him start empiric steroid therapy with prednisone, and he also began diuretic therapy with furosemide, as he had significant fluid retention. He returned on 02/12/2019 for parenteral iron replacement with Injectafer. Restaging PET/CT on 02/16/2018 showed no abnormal pulmonary parenchymal uptake. A small left pleural effusion showed no suspicious activity. There was no right pleural effusion noted and no pericardial effusion noted. There was no abnormal lymph node uptake, and no evidence for metabolically active malignancy. I had seen him for a follow-up visit on 02/19/2019. At that point he was feeling much better. He received his second infusion of Injectafer, and with the PET/CT showing no evidence of active malignancy, we opted to continue his treatment with nivolumab. On 03/04/2019 he returned for cycle 2 of nivolumab, administered at the 2-week dosing schedule. He tolerated it well, and he was then able to continue treatment at 2- week intervals. As of 09/03/2019 he received his 15th cycle of nivolumab at the 240 mg/m??? dosage. He is seen for a follow-up visit. He has been feeling pretty good generally. He still has some fatigue, but he is able to work part-time. His ECOG score is 1. He has good appetite. He has no fever or night sweats. He has no shortness of breath, cough, or chest pain. He has no GI or complaints. He has some pain in his feet, which he attributes to having to stand on a concrete floor at work. He has no other joint or bone pain. He does not complain of headache or dizziness. He has no focal neurologic symptoms. Medications: Acetaminophen Extra Strength 1 - 2 Tablet (of 500 mg) Oral PRN, Amiodarone HCl 1 Tablet (of 200 mg) Oral daily, Cetirizine HCl 1 Tablet (of 10 mg) Oral daily PRN, Eliquis 1 Tablet (of 2.5 mg) Oral b.i.d., Furosemide 1 (20 mg) Tablet Oral daily, Gabapentin 2 Capsule (of 300 mg) Oral at bedtime, Levothyroxine Sodium 1 Tablet (of 50 mcg) Oral daily, Lipitor 1 (20 mg) Tablet Oral daily, LORazepam 1 Tablet (of 0.5 mg) Oral daily, metFORMIN HCl 1 (500 mg) Tablet Oral daily, Mirtazapine 1 Tablet (of 15 mg) Oral at bedtime, Omeprazole 1 Tablet (of 20 mg) Tablet, enteric coated Oral b.i.d., predniSONE 1 Tablet (of 2.5 mg) Oral every am Allergies: No Known Allergies. Review of Systems: Constitutional - His energy level is okay, though he is feeling more tired. 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 His appetite is good and weight is stable. No fever, chills, hot flashes, or night sweats. ECOG score is 1, ENMT - No sinus congestion/drainage. No mouth sores. No sore throat or difficulty swallowing, Hematologic/Lymphatic - No abnormal bruising or bleeding, Respiratory - No shortness of breath. No cough. No pleuritic pain or hemoptysis, Cardiovascular - No angina pain. No palpitations, Gastrointestinal - No nausea or vomiting. No heartburn or acid reflux. No diarrhea or constipation. No blood in the stool or black stools, Genitourinary (M) - No dysuria or hematuria. No urinary frequency. No urgency or incontinence, Musculoskeletal - He has some pain in his feet from having to stand on a concrete floor at work, Integumentary - No skin complications, Neurologic - No headache or dizziness. No numbness/paresthesias or other focal neurologic symptoms, Psychiatric - No anxiety or depression. He started taking Melatonin to help sleep, which is working well. Vital Signs: Performed on Sep 17, 2019 12:34 Height - 69.00 in Weight - 198.6 lbs (HIGH) BSA - 2.06 sq.m BMI - 29.33 Temperature - 98.6 F Pulse - 65 /min Respiration - 20 /min BP - 129/77 mm(hg) O2 Sat - 98 % Pain - 3 Physical Examination: Constitutional - He looks pretty good generally, Eyes - Sclerae nonicteric. Conjunctivae clear, ENMT - No lesions noted in the oral cavity, Hematologic/Lymphatic - No cervical, clavicular, or axillary adenopathy, Respiratory - Lungs sound clear, Cardiovascular - Heart rhythm is regular. There is no murmur, gallop, or rub noted, Abdomen - Soft. Liver and spleen are not enlarged. There is no abdominal mass noted and there is no obvious ascites. There is no inguinal adenopathy noted, Extremities - There is still mild swelling of the right leg. There is otherwise no edema, Neurologic - There are no focal neurologic deficits noted. Lab/Imaging: Test performed on Sep 17, 2019 11:00 Sodium 137 mmol/L TSH 2.18 uIU/mL Potassium 3.9 mmol/L Chloride 97 mmol/L CO2 26 mmol/L Anion Gap 17.9 BUN 14 mg/dL Creatinine 1.4 mg/dL Cr Clearance (Est) 69.71 mL/min eGFR 51.4 mL/min Glucose 208 mg/dL Calcium 9.2 mg/dL Protein, Total 7.5 g/dL Albumin 4.4 g/dL Globulin 3.1 g/dL Bilirubin, Total 0.4 mg/dL ALT (SGPT) 27 U/L AST (SGOT) 22 U/L Alkaline Phosphatase 151 IU/L WBC 7.9 10 3/uL RBC 3.62 10 6/uL HGB 11.8 g/dL HCT 35.2 % MCV 97.2 fL MCH 32.6 pg MCHC 33.5 g/dL RDW 12.2 % Platelet Count 212 10 3/cmm MPV 10.1 fL Neutrophils 5.6 10 3/uL Lymphocytes 1.5 10 3/uL Monocytes 0.5 10 3/uL Eosinophils 0.3 10 3/uL Basophils 0.0 10 3/uL Neutrophil % 70.3 % Lymphocyte % 18.9 % Monocyte % 6.7 % Eosinophil % 3.4 % Basophils % 0.4 % Impression: 1. Patient with melanoma involving the right calcaneal region, stage IIIA (pT2a, pN2a, M0) at initial diagnosis in 2015. 2. His intial treatment included biopsy in May 2016 followed by wide excision with skin graft and with sentinel right inguinal lymph node biopsy on 07/03/2016 followed by right inguinal lymph node dissection on 07/24/2016. 3. He was given adjuvant therapy with ipililumab 10 mg/kg for 4 cycles, completed in October 2016. He experienced multiple toxicities with the treatment. 4. In November 2018 he had biopsy-proven recurrence in the right inguinal lymph node. 5. On 01/06/2019 he began treatment with nivolumab. His other medical illnesses include: 6. Hypertension. 7. Hyperlipidemia. 8. Type II diabetes. 9. GERD. 10. Chronic urticaria. Following his initial infusion of nivolumab he required admission to the hospital with pneumonia/hypoxia. His clinical course was complicated by atrial fibrillation/RVR, requiring cardioversion. His further treatment with nivolumab was delayed. He was then admitted admitted to the hospital again with respiratory distress. By echocardiogram he had bilateral pleural effusions and loculated pericardial effusion. The pericardial effusion was noted to contain particulate material, suspicious for metastatic disease. He underwent thoracentesis. There were no malignant cells seen in the pleural fluid. At his follow-up visit on 01/30/2019 he had very poor performance status, and he was still moderately anemic. His serum iron studies were consistent with iron deficiency. He continued antibiotic therapy for the pneumonia, and at that point I had him start empiric steroid therapy with prednisone. He began parenteral iron replacement with Injectafer on 02/12/2019. His restaging PET/CT on showed no evidence for active malignancy. He completed his second infusion of Injectafer on 02/19/2019, and on 03/04/2019 he continued with cycle 2 of nivolumab at the 2-week dosing schedule. He tolerated it well, and he then continued nivolumab at 240 mg/m??? every 2 weeks. During treatment he had to start thyroid replacement for hypothyroidism. He has since then continued to have some fatigue. He has otherwise tolerate treatment well, and he has been doing well clinically. As of 09/03/2019 he completed cycle 15 of nivolumab at the 240 mg/m??? dosage. Plan: He will continue with cycle 16 of nivolumab at 240 mg by IV infusion. He will return for treatment in 2 weeks and for a follow-up visit in 4 weeks. Signed By: Robel Sterling M.D. <<Signature on File>>
== END 2019-09-29 23:59 | disposition home or self-care (01) ==
LOC: ONCMED 05:45
PROVIDERS: Family Provider Internal Medicine; PCP Internal Medicine; Visit Provider Internal Medicine Medical Oncology
DX: Z51.12 Encounter for antineoplastic immunotherapy (principal); C43.71 Malignant melanoma of right lower limb, including hip; C77.4 Secondary and unspecified malignant neoplasm of inguinal and lower limb lymph nodes; I10 Essential (primary) hypertension; E78.5 Hyperlipidemia, unspecified; E11.9 Type 2 diabetes mellitus without complications; K21.9 Gastro-esophageal reflux disease without esophagitis; L50.8 Other urticaria; E03.9 Hypothyroidism, unspecified; D50.9 Iron deficiency anemia, unspecified; Z79.899 Other long term (current) drug therapy; Z79.84 Long term (current) use of oral hypoglycemic drugs; Z87.01 Personal history of pneumonia (recurrent); Z87.891 Personal history of nicotine dependence
CPT/HCPCS: 80053; 84443; 85025; 96413; 99214; J7050; J9299

== ENCOUNTER 2019-10-27 06:46 | Outpatient (RCR) | payer BC, SELFPAY ==
[2019-10-13 12:15] LABS: Basophils % 0.2 %; Eosinophils # 0.3 10^3/uL (0.0-0.8); Eosinophils % 4.2 %; Hematocrit 36.8 % (42.0-52.0); Hemoglobin 12.2 g/dL (11.7-16.6); Lymphocytes # 1.7 10^3/uL (0.8-4.8); Lymphocytes % 20.9 %; Mean Corpuscular HGB Conc 33.2 g/dL (30.0-36.0); Mean Corpuscular Hemoglobin 31.8 pg (28.0-34.0); Mean Corpuscular Volume 95.8 fL (80-94); Mean Platelet Volume 9.8 fL (7.4-10.4); Monocytes # 0.5 10^3/uL (0.2-0.9); Monocytes % 6.3 %; Neutrophils # 5.5 10^3/uL (1.8-7.7); Neutrophils % 68.2 %; Nucleated Red Blood Cells % 0 %; Platelet Count 224 10^3/cmm (130-400); Red Blood Count 3.84 10^6/uL (4.1-5.3); Red Cell Distribution Width 12.3 % (12.1-15.1); White Blood Count 8.1 10^3/uL (4.0-10.0)
[2019-10-13 13:02] LABS: Alanine Aminotransferase 19 U/L (0-41); Albumin Level 4.6 g/dL (3.5-5.2); Alkaline Phosphatase 134 IU/L (40-130); Anion Gap 18.7 (5-19); Aspartate Amino Transferase 22 U/L (0-40); Blood Urea Nitrogen 14 mg/dL (8-23); Calcium 9.6 mg/dL (8.5-10.5); Carbon Dioxide 27 mmol/L (22-29); Chloride 95 mmol/L (98-107); Globulin 3.4 g/dL (1.3-4.6); Glomerular Filtration Rate 61.3 mL/min (90-130); Glucose 169 mg/dL (65-115); Lactate Dehydrogenase 152 U/L (135-225); Osmolality Calculated 284 mOsm/kg (285-295); Potassium 3.7 mmol/L (3.5-5.1); Sodium 137 mmol/L (136-145); Thyroid Stimulating Hormone 3.21 uIU/mL (0.27-4.20); Total Bilirubin 0.4 mg/dL (0.15-1.2)
--- NOTE | 2019-10-14 12:08 | ONC FU_ITS ---
Dr. Sterling Patient Follow-Up Note Patient: Alfonso Grant Unit #: [id number]: 1955 Dicatated By: Robel Sterling M.D.Date of Visit:Oct 13, 2019 Onc Med Follow-up/Prog Note Chief Complaint: Melanoma. History of Present Illness: This is a 64 year-old man with melanoma of the right calcaneal region, stage IIIA (pT2a, pN2a, M0) at initial diagnosis in 2015, but with subsequent right inguinal lymph node recurrence. He had seen Dr. Ortiz in May 2016 after he had become aware of a change in a mole on his right heel. The initial biopsy showed melanoma with a Breslow depth of 1.6 mm with no ulcerations and no mitoses identified. He was referred to Dr. Messer in [place]. On 07/03/2016 he underwent wide excision with skin graft and with sentinel right inguinal lymph node biopsy. Pathology showed acral lentiginous melanoma measuring 1.4 x 1.4 cm. The residual tumor had a Breslow depth of 0.8 mm. There was no ulceration noted and there were 0 mitoses/square millimeter. A total of 3 sentinel lymph nodes were excised, 2 of which were positive for metastatic melanoma on SOX-10 and MART-1 stains. The largest size of metastatic focus measured 0.4 mm. MRI of the abdomen on 07/13/2016 showed no lymphadenopathy or other evidence of metastatic disease. PET/CT at that time also showed no evidence for metabolically active malignancy. On 07/24/2016 he underwent right inguinal lymph node dissection. There was no additional metastatic lymph node involvement. He had medical oncology consultation with Dr. Briseno, and he was recommended to consider adjuvant therapy with ipililumab. I had seen him for a second opinion evaluation on 09/10/2016. Given his high risk for recurrence, I also recommended the adjuvant therapy. He then proceeded with the high-dose ipililumab regimen, completing 4 cycles of treatment from 09/19/2016 through 11/20/2016. He experienced multiple toxicities with the treatment. During subsequent follow-up he had done well until October 2018 when his surveillance PET/CT showed a small focus of uptake in the subcutaneous tissue of the upper medial right thigh, suspicious for neoplastic involvement. There were no other sites of abnormal uptake on that study. He then underwent surgical resection of the involved area on 12/15/2018, pathology confirming metastatic melanoma. A BRAF mutation was not detected. He began treatment with nivolumab on 01/06/2019. Several days following his initial infusion he was admitted to the hospital with pneumonia/hypoxia. He developed atrial fibrillation/RVR, requiring cardioversion. He was discharged on 01/19/2019. His further treatment with nivolumab was delayed. On 01/26/2019 he was admitted to [facility] after presenting to the emergency room with respiratory distress. His chest x-ray showed development of moderate left pleural effusion with probable atelectasis or pneumonia of the left lower lobe. His echocardiogram showed loculated pericardial effusion with large bilateral pleural effusions. The pericardial effusion was noted to be more prominent towards the apex and it contained particulate material, suspicious for metastatic disease to the pericardium. He underwent thoracentesis. The pleural fluid studies included normal LDH and a negative Gram stain. The morphologic assessment showed benign appearing mesothelial cells in a background of mild mixed inflammation and blood. There was no atypia or malignancy seen. He was discharged home on 01/28/2019 on continued antibiotic coverage with Cefdnir 300 mg twice a day. His other medical illnesses include hypertension, hyperlipidemia, type II diabetes, and GERD. He also has a history of chronic urticaria. He has a very minimal smoking history, and he had quit smoking in 1980. He was seen her for a follow-up visit on 01/30/2019. He was still very weak, and he had very marginal performance status. He was still significantly anemic with his hemoglobin low at 9.2 g. He had low transferrin saturation 9.8%, consistent with iron deficiency. At that point he continued antibiotic therapy for the pneumonia. I opted to have him start empiric steroid therapy with prednisone, and he also began diuretic therapy with furosemide, as he had significant fluid retention. He returned on 02/12/2019 for parenteral iron replacement with Injectafer. Restaging PET/CT on 02/16/2018 showed no abnormal pulmonary parenchymal uptake. A small left pleural effusion showed no suspicious activity. There was no right pleural effusion noted and no pericardial effusion noted. There was no abnormal lymph node uptake, and no evidence for metabolically active malignancy. I had seen him for a follow-up visit on 02/19/2019. At that point he was feeling much better. He received his second infusion of Injectafer, and with the PET/CT showing no evidence of active malignancy, we opted to continue his treatment with nivolumab. On 03/04/2019 he returned for cycle 2 of nivolumab, administered at the 2-week dosing schedule. He tolerated it well, and he was then able to continue treatment at 2- week intervals. As of 10/01/2019 he received his 17th cycle of nivolumab at the 240 mg/m??? dosage. He is seen for a follow-up visit. He has been feeling good generally. He says his energy is fair. He is able to do light work. ECOG score is 1. He has good appetite. He has no fever or night sweats. He has no shortness of breath, cough, or chest pain. His acid reflux has been managed adequately with omeprazole. He has no other GI or complaints. He has some generalized achiness. He has no focal neurologic symptoms. Medications: Acetaminophen Extra Strength 1 - 2 Tablet (of 500 mg) Oral PRN, Amiodarone HCl 1 Tablet (of 200 mg) Oral daily, Cetirizine HCl 1 Tablet (of 10 mg) Oral daily PRN, Eliquis 1 Tablet (of 2.5 mg) Oral b.i.d., Furosemide 1 (20 mg) Tablet Oral daily, Gabapentin 2 Capsule (of 300 mg) Oral at bedtime, Levothyroxine Sodium 1 Tablet (of 50 mcg) Oral daily, Lipitor 1 (20 mg) Tablet Oral daily, LORazepam 1 Tablet (of 0.5 mg) Oral daily, metFORMIN HCl 1 (500 mg) Tablet Oral daily, Mirtazapine 1 Tablet (of 15 mg) Oral at bedtime, Omeprazole 1 Tablet (of 20 mg) Tablet, enteric coated Oral b.i.d., predniSONE 1 Tablet (of 2.5 mg) Oral every am Allergies: No Known Allergies. Review of Systems: Constitutional - He feels good. His energy is fair. He is able to do some light housework. His appetite is good and weight is stable. No fever, chills, hot flashes, or night sweats. ECOG score is 1, ENMT - No sinus congestion/drainage. No mouth sores. No sore throat or difficulty swallowing, Hematologic/Lymphatic - No abnormal bruising or bleeding, Respiratory - No shortness of breath. No cough. No pleuritic pain or hemoptysis, Cardiovascular - No angina pain. No palpitations, Gastrointestinal - No nausea or vomiting. His heartburn is adequately controlled with Prilosec. No diarrhea or constipation. No blood in the stool or black stools, Genitourinary (M) - No dysuria or hematuria. No urinary frequency. No urgency or incontinence, Musculoskeletal - He has some generalized aches, Integumentary - No skin complications, Neurologic - No headache or dizziness. No numbness/paresthesias or other focal neurologic symptoms, Psychiatric - No anxiety or depression. No insomnia. Vital Signs: Performed on Oct 13, 2019 13:14 Height - 69.00 in Weight - 196.6 lbs (LOW) BSA - 2.05 sq.m BMI - 29.03 Temperature - 97.6 F (LOW) Pulse - 77 /min Respiration - 18 /min BP - 136/80 mm(hg) O2 Sat - 97 % Pain - 0 Physical Examination: Constitutional - He looks pretty good generally, Eyes - Sclerae nonicteric. Conjunctivae clear, ENMT - No lesions noted in the oral cavity, Hematologic/Lymphatic - No cervical, clavicular, or axillary adenopathy, Respiratory - Lungs sound clear, Cardiovascular - Heart rhythm is regular. There is no murmur, gallop, or rub noted, Abdomen - Soft. Liver and spleen are not enlarged. There is no abdominal mass noted and there is no obvious ascites. There is no inguinal adenopathy noted, Extremities - There is mild, persistent swelling of the right leg. There is otherwise no edema, Neurologic - There are no focal neurologic deficits noted. Lab/Imaging: Test performed on Oct 13, 2019 11:50 LDH (Total) 152 U/L Sodium 137 mmol/L TSH 3.21 uIU/mL Potassium 3.7 mmol/L Chloride 95 mmol/L CO2 27 mmol/L Anion Gap 18.7 BUN 14 mg/dL Creatinine 1.2 mg/dL Cr Clearance (Est) 80.51 mL/min eGFR 61.3 mL/min Glucose 169 mg/dL Calcium 9.6 mg/dL Protein, Total 8.0 g/dL Albumin 4.6 g/dL Globulin 3.4 g/dL Bilirubin, Total 0.4 mg/dL ALT (SGPT) 19 U/L AST (SGOT) 22 U/L Alkaline Phosphatase 134 IU/L WBC 8.1 10 3/uL RBC 3.84 10 6/uL HGB 12.2 g/dL HCT 36.8 % MCV 95.8 fL MCH 31.8 pg MCHC 33.2 g/dL RDW 12.3 % Platelet Count 224 10 3/cmm MPV 9.8 fL Neutrophils 5.5 10 3/uL Lymphocytes 1.7 10 3/uL Monocytes 0.5 10 3/uL Eosinophils 0.3 10 3/uL Basophils 0.0 10 3/uL Neutrophil % 68.2 % Lymphocyte % 20.9 % Monocyte % 6.3 % Eosinophil % 4.2 % Basophils % 0.2 % Impression: 1. Patient with melanoma involving the right calcaneal region, stage IIIA (pT2a, pN2a, M0) at initial diagnosis in 2015. 2. His intial treatment included biopsy in May 2016 followed by wide excision with skin graft and with sentinel right inguinal lymph node biopsy on 07/03/2016 followed by right inguinal lymph node dissection on 07/24/2016. 3. He was given adjuvant therapy with ipililumab 10 mg/kg for 4 cycles, completed in October 2016. He experienced multiple toxicities with the treatment. 4. In November 2018 he had biopsy-proven recurrence in the right inguinal lymph node. 5. On 01/06/2019 he began treatment with nivolumab. His other medical illnesses include: 6. Hypertension. 7. Hyperlipidemia. 8. Type II diabetes. 9. GERD. 10. Chronic urticaria. Following his initial infusion of nivolumab he required admission to the hospital with pneumonia/hypoxia. His clinical course was complicated by atrial fibrillation/RVR, requiring cardioversion. His further treatment with nivolumab was delayed. He was then admitted admitted to the hospital again with respiratory distress. By echocardiogram he had bilateral pleural effusions and loculated pericardial effusion. The pericardial effusion was noted to contain particulate material, suspicious for metastatic disease. He underwent thoracentesis. There were no malignant cells seen in the pleural fluid. At his follow-up visit on 01/30/2019 he had very poor performance status, and he was still moderately anemic. His serum iron studies were consistent with iron deficiency. He continued antibiotic therapy for the pneumonia, and at that point I had him start empiric steroid therapy with prednisone. He began parenteral iron replacement with Injectafer on 02/12/2019. His restaging PET/CT on showed no evidence for active malignancy. He completed his second infusion of Injectafer on 02/19/2019, and on 03/04/2019 he continued with cycle 2 of nivolumab at the 2-week dosing schedule. He tolerated it well, and he then continued nivolumab at 240 mg/m??? every 2 weeks. During treatment he had to start thyroid replacement for hypothyroidism. He then continued to have some ongoing fatigue, but he otherwised tolerate treatment well. As of 10/01/2019 he had completed cycle 15 of nivolumab at the 240 mg/m??? dosage. He still has some mild fatigue. He otherwise appears to be doing very well clinically. Thus far there is been no evidence of any further recurrence/progression of the melanoma. Plan: He will continue with cycle 18 of nivolumab at 240 mg by IV infusion. He will return for treatment in 2 weeks and for a follow-up visit in 4 weeks. Signed By: Robel Sterling M.D. <<Signature on File>>
== END 2019-10-29 23:59 | disposition home or self-care (01) ==
LOC: ONCMED 06:46
PROVIDERS: Family Provider Internal Medicine; PCP Internal Medicine; Visit Provider Internal Medicine Medical Oncology
DX: Z51.12 Encounter for antineoplastic immunotherapy (principal); C43.71 Malignant melanoma of right lower limb, including hip; C77.4 Secondary and unspecified malignant neoplasm of inguinal and lower limb lymph nodes; R53.83 Other fatigue; I10 Essential (primary) hypertension; E78.5 Hyperlipidemia, unspecified; E11.9 Type 2 diabetes mellitus without complications; K21.9 Gastro-esophageal reflux disease without esophagitis; L50.8 Other urticaria; Z79.899 Other long term (current) drug therapy; Z87.891 Personal history of nicotine dependence; Z79.84 Long term (current) use of oral hypoglycemic drugs
CPT/HCPCS: 36591; 80053; 83615; 84443; 85025; 96413; 99214; J7050; J9299

== ENCOUNTER 2019-11-24 06:49 | Outpatient (RCR) | payer BC, SELFPAY ==
[2019-11-10 11:43] LABS: Basophils % 0.6 %; Eosinophils # 0.4 10^3/uL (0.0-0.8); Eosinophils % 5.7 %; Hematocrit 37.6 % (42.0-52.0); Hemoglobin 12.5 g/dL (11.7-16.6); Lymphocytes # 1.6 10^3/uL (0.8-4.8); Lymphocytes % 25.5 %; Mean Corpuscular HGB Conc 33.2 g/dL (30.0-36.0); Mean Corpuscular Hemoglobin 32.2 pg (28.0-34.0); Mean Corpuscular Volume 96.9 fL (80-94); Mean Platelet Volume 9.9 fL (7.4-10.4); Monocytes # 0.4 10^3/uL (0.2-0.9); Monocytes % 6.1 %; Neutrophils # 3.8 10^3/uL (1.8-7.7); Neutrophils % 61.8 %; Nucleated Red Blood Cells % 0 %; Platelet Count 262 10^3/cmm (130-400); Red Blood Count 3.88 10^6/uL (4.1-5.3); Red Cell Distribution Width 12.6 % (12.1-15.1); White Blood Count 6.2 10^3/uL (4.0-10.0)
[2019-11-10 12:16] LABS: Alanine Aminotransferase 16 U/L (0-41); Albumin Level 4.8 g/dL (3.5-5.2); Alkaline Phosphatase 122 IU/L (40-130); Anion Gap 15.5 (5-19); Aspartate Amino Transferase 21 U/L (0-40); Blood Urea Nitrogen 13 mg/dL (8-23); Calcium 9.1 mg/dL (8.5-10.5); Carbon Dioxide 28 mmol/L (22-29); Chloride 98 mmol/L (98-107); Globulin 2.8 g/dL (1.3-4.6); Glomerular Filtration Rate 55.9 mL/min (90-130); Glucose 184 mg/dL (65-115); Osmolality Calculated 287 mOsm/kg (285-295); Potassium 3.5 mmol/L (3.5-5.1); Sodium 138 mmol/L (136-145); Thyroid Stimulating Hormone 2.62 uIU/mL (0.27-4.20); Total Bilirubin 0.3 mg/dL (0.15-1.2); Total Protein 7.6 g/dL (6.6-8.7)
--- NOTE | 2019-11-13 11:01 | ONC FU_ITS ---
Dr. Sterling Patient Follow-Up Note Patient: Alfonso Grant Unit #: [id number]: 1955 Dicatated By: Robel Sterling M.D.Date of Visit:November 10, 2019 Onc Med Follow-up/Prog Note Chief Complaint: Melanoma. History of Present Illness: This is a 64 year-old man with melanoma of the right calcaneal region, stage IIIA (pT2a, pN2a, M0) at initial diagnosis in 2015, but with subsequent right inguinal lymph node recurrence. He had seen Dr. Ortiz in May 2016 after he had become aware of a change in a mole on his right heel. The initial biopsy showed melanoma with a Breslow depth of 1.6 mm with no ulcerations and no mitoses identified. He was referred to Dr. Messer in [place]. On 07/03/2016 he underwent wide excision with skin graft and with sentinel right inguinal lymph node biopsy. Pathology showed acral lentiginous melanoma measuring 1.4 x 1.4 cm. The residual tumor had a Breslow depth of 0.8 mm. There was no ulceration noted and there were 0 mitoses/square millimeter. A total of 3 sentinel lymph nodes were excised, 2 of which were positive for metastatic melanoma on SOX-10 and MART-1 stains. The largest size of metastatic focus measured 0.4 mm. MRI of the abdomen on 07/13/2016 showed no lymphadenopathy or other evidence of metastatic disease. PET/CT at that time also showed no evidence for metabolically active malignancy. On 07/24/2016 he underwent right inguinal lymph node dissection. There was no additional metastatic lymph node involvement. He had medical oncology consultation with Dr. Briseno, and he was recommended to consider adjuvant therapy with ipililumab. I had seen him for a second opinion evaluation on 09/10/2016. Given his high risk for recurrence, I also recommended the adjuvant therapy. He then proceeded with the high-dose ipililumab regimen, completing 4 cycles of treatment from 09/19/2016 through 11/20/2016. He experienced multiple toxicities with the treatment. During subsequent follow-up he had done well until October 2018 when his surveillance PET/CT showed a small focus of uptake in the subcutaneous tissue of the upper medial right thigh, suspicious for neoplastic involvement. There were no other sites of abnormal uptake on that study. He then underwent surgical resection of the involved area on 12/15/2018, pathology confirming metastatic melanoma. A BRAF mutation was not detected. He began treatment with nivolumab on 01/06/2019. Several days following his initial infusion he was admitted to the hospital with pneumonia/hypoxia. He developed atrial fibrillation/RVR, requiring cardioversion. He was discharged on 01/19/2019. His further treatment with nivolumab was delayed. On 01/26/2019 he was admitted to [facility] after presenting to the emergency room with respiratory distress. His chest x-ray showed development of moderate left pleural effusion with probable atelectasis or pneumonia of the left lower lobe. His echocardiogram showed loculated pericardial effusion with large bilateral pleural effusions. The pericardial effusion was noted to be more prominent towards the apex and it contained particulate material, suspicious for metastatic disease to the pericardium. He underwent thoracentesis. The pleural fluid studies included normal LDH and a negative Gram stain. The morphologic assessment showed benign appearing mesothelial cells in a background of mild mixed inflammation and blood. There was no atypia or malignancy seen. He was discharged home on 01/28/2019 on continued antibiotic coverage with Cefdnir 300 mg twice a day. His other medical illnesses include hypertension, hyperlipidemia, type II diabetes, and GERD. He also has a history of chronic urticaria. He has a very minimal smoking history, and he had quit smoking in 1980. He was seen her for a follow-up visit on 01/30/2019. He was still very weak, and he had very marginal performance status. He was still significantly anemic with his hemoglobin low at 9.2 g. He had low transferrin saturation 9.8%, consistent with iron deficiency. At that point he continued antibiotic therapy for the pneumonia. I opted to have him start empiric steroid therapy with prednisone, and he also began diuretic therapy with furosemide, as he had significant fluid retention. He returned on 02/12/2019 for parenteral iron replacement with Injectafer. Restaging PET/CT on 02/16/2018 showed no abnormal pulmonary parenchymal uptake. A small left pleural effusion showed no suspicious activity. There was no right pleural effusion noted and no pericardial effusion noted. There was no abnormal lymph node uptake, and no evidence for metabolically active malignancy. I had seen him for a follow-up visit on 02/19/2019. At that point he was feeling much better. He received his second infusion of Injectafer, and with the PET/CT showing no evidence of active malignancy, we opted to continue his treatment with nivolumab. On 03/04/2019 he returned for cycle 2 of nivolumab, administered at the 2-week dosing schedule. He tolerated it well, and he was then able to continue treatment at 2- week intervals. As of 10/27/2019 he received his 19th cycle of nivolumab at the 240 mg/m??? dosage. He is seen for a follow-up visit. He has been feeling good generally. He has pretty good energy. Activity is still somewhat limited. ECOG score is 1. He has good appetite. He has no fever or night sweats. He has no shortness of breath, cough, or chest pain. He has no GI/ complaints other than a little bit of heartburn. He has no significant joint or bone pain. He does not complain of headache or dizziness. He occasionally has numbness in his right foot. Medications: Acetaminophen Extra Strength 1 - 2 Tablet (of 500 mg) Oral PRN, Amiodarone HCl 1 Tablet (of 200 mg) Oral daily, Cetirizine HCl 1 Tablet (of 10 mg) Oral daily PRN, Eliquis 1 Tablet (of 2.5 mg) Oral b.i.d., Furosemide 1 (20 mg) Tablet Oral daily, Gabapentin 2 Capsule (of 300 mg) Oral at bedtime, Levothyroxine Sodium 1 Tablet (of 50 mcg) Oral daily, Lipitor 1 (20 mg) Tablet Oral daily, LORazepam 1 Tablet (of 0.5 mg) Oral daily, Melatonin 1 (3 mg) Tablet Oral at bedtime, metFORMIN HCl 1 (500 mg) Tablet Oral daily, Mirtazapine 1 Tablet (of 15 mg) Oral at bedtime, Omeprazole 1 Tablet (of 20 mg) Tablet, enteric coated Oral b.i.d., predniSONE 1 Tablet (of 2.5 mg) Oral every am Allergies: No Known Allergies. Review of Systems: Constitutional - He generally feels good. His energy is good. His appetite is good and weight is stable. No fever, chills, hot flashes, or night sweats. ECOG score is 1, ENMT - No sinus congestion/drainage. No mouth sores. No sore throat or difficulty swallowing, Hematologic/Lymphatic - No abnormal bruising or bleeding, Respiratory - No shortness of breath. No cough. No pleuritic pain or hemoptysis, Cardiovascular - No angina pain. No palpitations, Gastrointestinal - No nausea or vomiting. He occasionally has heartburn. No diarrhea or constipation. No blood in the stool or black stools, Genitourinary (M) - No dysuria or hematuria. No urinary frequency. No urgency or incontinence, Musculoskeletal - No joint or bone pain, Integumentary - No skin complications, Neurologic - No headache or dizziness. He has some intermittent numbness in his finges and right leg, Psychiatric - No anxiety or depression. No insomnia. Vital Signs: Performed on November 10, 2019 13:32 Height - 69.00 in Weight - 196.0 lbs (LOW) BSA - 2.05 sq.m BMI - 28.94 Temperature - 98.5 F Pulse - 70 /min Respiration - 22 /min BP - 114/71 mm(hg) O2 Sat - 97 % Pain - 0 Physical Examination: Constitutional - He looks pretty good generally, Eyes - Sclerae nonicteric. Conjunctivae clear, ENMT - No lesions noted in the oral cavity, Hematologic/Lymphatic - No cervical, clavicular, or axillary adenopathy, Respiratory - Lungs sound clear, Cardiovascular - Heart rhythm is regular. There is no murmur, gallop, or rub noted, Abdomen - Soft. Liver and spleen are not enlarged. There is no abdominal mass noted and there is no obvious ascites. There is no inguinal adenopathy noted, Extremities - There is mild swelling of the right leg. There is otherwise no edema, Neurologic - There are no focal neurologic deficits noted. Lab/Imaging: Test performed on November 10, 2019 11:25 Sodium 138 mmol/L TSH 2.62 uIU/mL Potassium 3.5 mmol/L Chloride 98 mmol/L CO2 28 mmol/L Anion Gap 15.5 BUN 13 mg/dL Creatinine 1.3 mg/dL Cr Clearance (Est) 74.0900 mL/min eGFR 55.9 mL/min Glucose 184 mg/dL Calcium 9.1 mg/dL Protein, Total 7.6 g/dL Albumin 4.8 g/dL Globulin 2.8 g/dL Bilirubin, Total 0.3 mg/dL ALT (SGPT) 16 U/L AST (SGOT) 21 U/L Alkaline Phosphatase 122 IU/L WBC 6.2 10 3/uL RBC 3.88 10 6/uL HGB 12.5 g/dL HCT 37.6 % MCV 96.9 fL MCH 32.2 pg MCHC 33.2 g/dL RDW 12.6 % Platelet Count 262 10 3/cmm MPV 9.9 fL Neutrophils 3.8 10 3/uL Lymphocytes 1.6 10 3/uL Monocytes 0.4 10 3/uL Eosinophils 0.4 10 3/uL Basophils 0.0 10 3/uL Neutrophil % 61.8 % Lymphocyte % 25.5 % Monocyte % 6.1 % Eosinophil % 5.7 % Basophils % 0.6 % Impression: 1. Patient with melanoma involving the right calcaneal region, stage IIIA (pT2a, pN2a, M0) at initial diagnosis in 2015. 2. His intial treatment included biopsy in May 2016 followed by wide excision with skin graft and with sentinel right inguinal lymph node biopsy on 07/03/2016 followed by right inguinal lymph node dissection on 07/24/2016. 3. He was given adjuvant therapy with ipililumab 10 mg/kg for 4 cycles, completed in October 2016. He experienced multiple toxicities with the treatment. 4. In November 2018 he had biopsy-proven recurrence in the right inguinal lymph node. 5. On 01/06/2019 he began treatment with nivolumab. His other medical illnesses include: 6. Hypertension. 7. Hyperlipidemia. 8. Type II diabetes. 9. GERD. 10. Chronic urticaria. Following his initial infusion of nivolumab he required admission to the hospital with pneumonia/hypoxia. His clinical course was complicated by atrial fibrillation/RVR, requiring cardioversion. His further treatment with nivolumab was delayed. He was then admitted admitted to the hospital again with respiratory distress. By echocardiogram he had bilateral pleural effusions and loculated pericardial effusion. The pericardial effusion was noted to contain particulate material, suspicious for metastatic disease. He underwent thoracentesis. There were no malignant cells seen in the pleural fluid. At his follow-up visit on 01/30/2019 he had very poor performance status, and he was still moderately anemic. His serum iron studies were consistent with iron deficiency. He continued antibiotic therapy for the pneumonia, and at that point I had him start empiric steroid therapy with prednisone. He began parenteral iron replacement with Injectafer on 02/12/2019. His restaging PET/CT on showed no evidence for active malignancy. He completed his second infusion of Injectafer on 02/19/2019, and on 03/04/2019 he continued with cycle 2 of nivolumab at the 2-week dosing schedule. He tolerated it well, and he then continued nivolumab at 240 mg/m??? every 2 weeks. During treatment he had to start thyroid replacement for hypothyroidism. He then continued to have some ongoing fatigue, but he otherwised tolerate treatment well. As of 10/27/2019 he had completed cycle 19 of nivolumab at the 240 mg/m??? dosage. He has continued to tolerate very well, and overall he is doing well clinically. Plan: He will continue with cycle 20 of nivolumab at 240 mg by IV infusion. He will return for treatment in 2 weeks and for a follow-up visit in 4 weeks. Signed By: Robel Sterling M.D. <<Signature on File>>
== END 2019-11-29 23:59 | disposition home or self-care (01) ==
LOC: ONCMED 06:49
PROVIDERS: PCP Internal Medicine; Visit Provider Internal Medicine Medical Oncology
DX: Z51.12 Encounter for antineoplastic immunotherapy (principal); C43.71 Malignant melanoma of right lower limb, including hip; C77.4 Secondary and unspecified malignant neoplasm of inguinal and lower limb lymph nodes; D50.9 Iron deficiency anemia, unspecified; E11.9 Type 2 diabetes mellitus without complications; K21.9 Gastro-esophageal reflux disease without esophagitis; E78.5 Hyperlipidemia, unspecified; I10 Essential (primary) hypertension; L50.8 Other urticaria; Z79.899 Other long term (current) drug therapy; Z92.21 Personal history of antineoplastic chemotherapy
CPT/HCPCS: 80053; 84443; 85025; 96413; 99214; J7050; J9299

== ENCOUNTER 2019-12-22 06:51 | Outpatient (RCR) | payer MEDICARE, SELFPAY ==
[2019-12-08 08:24] LABS: Basophils % 0.4 %; Eosinophils # 0.1 10^3/uL (0.0-0.8); Eosinophils % 2.2 %; Hematocrit 35.3 % (42.0-52.0); Hemoglobin 11.7 g/dL (11.7-16.6); Lymphocytes # 1.7 10^3/uL (0.8-4.8); Lymphocytes % 31.7 %; Mean Corpuscular HGB Conc 33.1 g/dL (30.0-36.0); Mean Corpuscular Hemoglobin 32.3 pg (28.0-34.0); Mean Corpuscular Volume 97.5 fL (80-94); Mean Platelet Volume 9.3 fL (7.4-10.4); Monocytes # 0.4 10^3/uL (0.2-0.9); Monocytes % 6.9 %; Neutrophils # 3.2 10^3/uL (1.8-7.7); Neutrophils % 58.6 %; Nucleated Red Blood Cells % 0 %; Platelet Count 205 10^3/cmm (130-400); Red Blood Count 3.62 10^6/uL (4.1-5.3); Red Cell Distribution Width 12.9 % (12.1-15.1); White Blood Count 5.4 10^3/uL (4.0-10.0)
[2019-12-08 08:54] LABS: Alanine Aminotransferase 31 U/L (0-41); Albumin Level 4.3 g/dL (3.5-5.2); Alkaline Phosphatase 136 IU/L (40-130); Anion Gap 14.7 (5-19); Aspartate Amino Transferase 24 U/L (0-40); Blood Urea Nitrogen 13 mg/dL (8-23); Calcium 8.5 mg/dL (8.5-10.5); Carbon Dioxide 29 mmol/L (22-29); Chloride 98 mmol/L (98-107); Globulin 2.6 g/dL (1.3-4.6); Glomerular Filtration Rate 55.9 mL/min (90-130); Glucose 100 mg/dL (65-115); Lactate Dehydrogenase 162 U/L (135-225); Osmolality Calculated 282 mOsm/kg (285-295); Potassium 3.7 mmol/L (3.5-5.1); Sodium 138 mmol/L (136-145); Total Bilirubin 0.6 mg/dL (0.15-1.2); Total Protein 6.9 g/dL (6.6-8.7)
--- NOTE | 2019-12-10 18:27 | ONC FU_ITS ---
[facility] Patient Note Patient: Alfonso Grant Unit #: [id number]: 1955 Dictated By: Martínez BookerDate of Visit: Dec 08, 2019 Onc MED Follow-Up/Prog Note Chief Complaint: Melanoma. History of Present Illness: Mr Grant is a 64 year-old man with melanoma of the right calcaneal region, stage IIIA (pT2a, pN2a, M0) at initial diagnosis in 2015, but with subsequent right inguinal lymph node recurrence. He had seen Dr. Ortiz in May 2016 after he had become aware of a change in a mole on his right heel. The initial biopsy showed melanoma with a Breslow depth of 1.6 mm with no ulcerations and no mitoses identified. He was referred to Dr. Messer in [place]. On 07/03/2016 he underwent wide excision with skin graft and with sentinel right inguinal lymph node biopsy. Pathology showed acral lentiginous melanoma measuring 1.4 x 1.4 cm. The residual tumor had a Breslow depth of 0.8 mm. There was no ulceration noted and there were 0 mitoses/square millimeter. A total of 3 sentinel lymph nodes were excised, 2 of which were positive for metastatic melanoma on SOX-10 and MART-1 stains. The largest size of metastatic focus measured 0.4 mm. MRI of the abdomen on 07/13/2016 showed no lymphadenopathy or other evidence of metastatic disease. PET/CT at that time also showed no evidence for metabolically active malignancy. On 07/24/2016 he underwent right inguinal lymph node dissection. There was no additional metastatic lymph node involvement. He had medical oncology consultation with Dr. Briseno, and he was recommended to consider adjuvant therapy with ipililumab. Dr Sterling had seen him for a second opinion evaluation on 09/10/2016. Given his high risk for recurrence, he also recommended the adjuvant therapy. He then proceeded with the high-dose ipililumab regimen, completing 4 cycles of treatment from 09/19/2016 through 11/20/2016. He experienced multiple toxicities with the treatment. During subsequent follow-up he had done well until October 2018 when his surveillance PET/CT showed a small focus of uptake in the subcutaneous tissue of the upper medial right thigh, suspicious for neoplastic involvement. There were no other sites of abnormal uptake on that study. He then underwent surgical resection of the involved area on 12/15/2018, pathology confirming metastatic melanoma. A BRAF mutation was not detected. He began treatment with nivolumab on 01/06/2019. Several days following his initial infusion he was admitted to the hospital with pneumonia/hypoxia. He developed atrial fibrillation/RVR, requiring cardioversion. He was discharged on 01/19/2019. His further treatment with nivolumab was delayed. On 01/26/2019 he was admitted to [facility] after presenting to the emergency room with respiratory distress. His chest x-ray showed development of moderate left pleural effusion with probable atelectasis or pneumonia of the left lower lobe. His echocardiogram showed loculated pericardial effusion with large bilateral pleural effusions. The pericardial effusion was noted to be more prominent towards the apex and it contained particulate material, suspicious for metastatic disease to the pericardium. He underwent thoracentesis. The pleural fluid studies included normal LDH and a negative Gram stain. The morphologic assessment showed benign appearing mesothelial cells in a background of mild mixed inflammation and blood. There was no atypia or malignancy seen. He was discharged home on 01/28/2019 on continued antibiotic coverage with Cefdnir 300 mg twice a day. His other medical illnesses include hypertension, hyperlipidemia, type II diabetes, and GERD. He also has a history of chronic urticaria. He has a very minimal smoking history, and he had quit smoking in 1980. He was seen her for a follow-up visit on 01/30/2019. He was still very weak, and he had very marginal performance status. He was still significantly anemic with his hemoglobin low at 9.2 g. He had low transferrin saturation 9.8%, consistent with iron deficiency. At that point he continued antibiotic therapy for the pneumonia. Dr Sterling opted to have him start empiric steroid therapy with prednisone, and he also began diuretic therapy with furosemide, as he had significant fluid retention. He returned on 02/12/2019 for parenteral iron replacement with Injectafer. Restaging PET/CT on 02/16/2018 showed no abnormal pulmonary parenchymal uptake. A small left pleural effusion showed no suspicious activity. There was no right pleural effusion noted and no pericardial effusion noted. There was no abnormal lymph node uptake, and no evidence for metabolically active malignancy. Dr Sterling had seen him for a follow-up visit on 02/19/2019. At that point he was feeling much better. He received his second infusion of Injectafer, and with the PET/CT showing no evidence of active malignancy, we opted to continue his treatment with nivolumab. On 03/04/2019 he returned for cycle 2 of nivolumab, administered at the 2-week dosing schedule. He tolerated it well, and he was then able to continue treatment at 2- week intervals. As of 11/19/2019 he received his 21th cycle of nivolumab at the 240 mg/m??? dosage. Mr. Grant is here today for follow-up. He is due for cycle 22 nivolumab. He continues to tolerate it well. He has good performance status. He is able to get around and do all of his ADLs without assistance. He is been working in his yard. He states he is eating good. He denies any concerns. He states overall he just feels really good. He denies any fever or chills. He denies mouth sores, sore throat or difficulty swallowing. He denies any cough or shortness of breath. He denies any diarrhea or abdominal cramps. His ECOG is 0. Past Medical History: Chronic urticaria Diabetes type II Gastroesophageal reflux disease Hyperlipidemia Hypertension Melanoma Past Surgical History: Thoracentesis Right inguinal lymph node biopsy/excision in 2019 Right inguinal lymph node dissection in 2017 Wide excision of melanoma with skin graft and sentinel right inguinal lymph node biopsy in 2017 Biopsy of skin lesion right heel in 2015 Arthroscopic right knee surgery in 2011 Left shoulder surgery in 2001 Right shoulder surgery in 1999 Tonsillectomy in 1962 - with adenoidectomy Allergies: No Known Allergies. Medications: Acetaminophen Extra Strength 1 - 2 Tablet (of 500 mg) Oral PRN Amiodarone HCl 1 Tablet (of 200 mg) Oral daily Cetirizine HCl 1 Tablet (of 10 mg) Oral daily PRN Eliquis 1 Tablet (of 2.5 mg) Oral b.i.d. Furosemide 1 (20 mg) Tablet Oral daily Gabapentin 2 Capsule (of 300 mg) Oral at bedtime Levothyroxine Sodium 1 Tablet (of 50 mcg) Oral daily Lipitor 1 (20 mg) Tablet Oral daily LORazepam 1 Tablet (of 0.5 mg) Oral daily Melatonin 1 (3 mg) Tablet Oral at bedtime metFORMIN HCl 1 (500 mg) Tablet Oral daily Mirtazapine 1 Tablet (of 15 mg) Oral at bedtime Omeprazole 1 Tablet (of 20 mg) Tablet, enteric coated Oral b.i.d. predniSONE 1 Tablet (of 2.5 mg) Oral every am Family History: Mr. Grant's father is : diabetes, and heart disease, and hypertension. His father has heart disease and diabetes, and he has been treated for colon cancer. He is still living at age 86. Mother has diabetes and dementia and is still living at age 86. His paternal grandfather also had colon cancer, and his paternal grandmother had breast cancer. A great grandfather on his father's side of melanoma. 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 Mr. Grant quit smoking 35 years ago but had smoked 0.5 packs/day for 3 years. He is an active drinker.He consumes 2 drinks/day. He has a history of smoking 1/2 pack of cigarettes daily for 2-3 years. He quit smoking in 1980. He chews 1 can of chewing tobacco per week . He currently drinks 2 cans of beer daily. Review Of Symptoms: Constitutional Denies fevers, chills, night sweats, excessive fatigue or weight loss. Allergic/Immunologic No reactions. Eyes Denies significant visual changes. No diplopia. No amaurosis. ENMT Denies changes in hearing, sore throat, mouth sores, difficulty or changes in swallowing ability, and/or sinus drainage. Endocrine No diabetes, thyroid disease or hormone replacement. Denies hot flashes or night sweats. Hematologic/Lymphatic Denies easy bruising or bleeding. The patient denies any tender or palpable lymph nodes. Respiratory Denies dyspnea on exertion, chest pain, cough or hemoptysis. Denies orthopnea. Cardiovascular Denies anginal chest pain, palpitations or orthopnea. Gastrointestinal Denies nausea, vomiting, diarrhea, GI bleeding, or constipation. Denies change in bowel habits and/or stool color, no heartburn or early satiety. Genitourinary (M) Denies hematuria, dysuria, increased frequency, urgency, hesitancy or incontinence. Musculoskeletal Denies joint pain, swelling or redness. No decreased range of motion. Integumentary Denies chronic rashes, inflammation, ulcerations or skin changes. He did develop a rash on his left lower leg after working outside yesterday. It is not itchy, no blistery, and is better today . Neurologic Denies headache, blurred vision, and no areas of focal weakness or numbness. Normal gait. No sensory problems. Psychiatric Denies insomnia, depression, thomas or mood swings. Vital Signs: Performed on Dec 08, 2019 09:36 Height - 69.00 in Weight - 196.6 lbs (HIGH) BSA - 2.05 sq.m BMI - 29.03 Temperature - 97.7 F (LOW) Pulse - 57 /min (LOW) Respiration - 17 /min BP - 105/69 mm(hg) O2 Sat - 99 % Pain - 0,1 - No physically strenuous activity, but ambulatory and able to carry out light or sedentary work (e.g. office work, light house work). (ECOG) Physical Examination: Integumentary Left lower leg-mid area, red, flat rash that is more linear than scattered. No vesicles, no exudate. Constitutional Alert, oriented, no acute distress. Skin pink, warm and dry. Head Normocephalic; atraumatic. Eyes Conjunctivae and sclerae are clear and without icterus. Pupils are reactive and equal. Neck Supple without masses or thyromegaly. No jugular venous distension. Hematologic/Lymphatic No petechiae or purpura. No tender or palpable lymph nodes in the cervical or supraclavicular areas. Respiratory Lungs are clear to auscultation without rhonchi or wheezing. Cardiovascular Regular rate and rhythm of heart without murmurs,clicks, gallops or rubs. Chest Right subclavian venous access device is unremarkable. Abdomen Non-tender, non-distended, no masses, ascites. No guarding or rebound tenderness. No pulsatile masses. Back/Spine Non-tender to palpation. Musculoskeletal No tenderness or swelling, normal range of motion without obvious weakness. Integumentary No rashes or lesions. Neurologic No sensory or motor deficits, normal cerebellar function, normal gait. Psychiatric Alert and oriented times three. Coherent speech. Verbalizes understanding of our discussions today. Laboratory:Test performed on Dec 08, 2019 08:12 LDH (Total) 162 U/L Sodium 138 mmol/L TSH 3.20 uIU/mL Potassium 3.7 mmol/L Chloride 98 mmol/L CO2 29 mmol/L Anion Gap 14.7 BUN 13 mg/dL Creatinine 1.3 mg/dL Cr Clearance (Est) 74.31 mL/min eGFR 55.9 mL/min Glucose 100 mg/dL Calcium 8.5 mg/dL Protein, Total 6.9 g/dL Albumin 4.3 g/dL Globulin 2.6 g/dL Bilirubin, Total 0.6 mg/dL ALT (SGPT) 31 U/L AST (SGOT) 24 U/L Alkaline Phosphatase 136 IU/L WBC 5.4 10 3/uL RBC 3.62 10 6/uL HGB 11.7 g/dL HCT 35.3 % MCV 97.5 fL MCH 32.3 pg MCHC 33.1 g/dL RDW 12.9 % Platelet Count 205 10 3/cmm MPV 9.3 fL Neutrophils 3.2 10 3/uL Lymphocytes 1.7 10 3/uL Monocytes 0.4 10 3/uL Eosinophils 0.1 10 3/uL Basophils 0.0 10 3/uL Neutrophil % 58.6 % Lymphocyte % 31.7 % Monocyte % 6.9 % Eosinophil % 2.2 % Basophils % 0.4 % NRBC % 0 % Impression: 1. Patient with melanoma involving the right calcaneal region, stage IIIA (pT2a, pN2a, M0) at initial diagnosis in 2015. 2. His intial treatment included biopsy in May 2016 followed by wide excision with skin graft and with sentinel right inguinal lymph node biopsy on 07/03/2016 followed by right inguinal lymph node dissection on 07/24/2016. 3. He was given adjuvant therapy with ipililumab 10 mg/kg for 4 cycles, completed in October 2016. He experienced multiple toxicities with the treatment. 4. In November 2018 he had biopsy-proven recurrence in the right inguinal lymph node. 5. On 01/06/2019 he began treatment with nivolumab. His other medical illnesses include: 6. Hypertension. 7. Hyperlipidemia. 8. Type II diabetes. 9. GERD. 10. Chronic urticaria. Following his initial infusion of nivolumab he required admission to the hospital with pneumonia/hypoxia. His clinical course was complicated by atrial fibrillation/RVR, requiring cardioversion. His further treatment with nivolumab was delayed. He was then admitted admitted to the hospital again with respiratory distress. By echocardiogram he had bilateral pleural effusions and loculated pericardial effusion. The pericardial effusion was noted to contain particulate material, suspicious for metastatic disease. He underwent thoracentesis. There were no malignant cells seen in the pleural fluid. At his follow-up visit on 01/30/2019 he had very poor performance status, and he was still moderately anemic. His serum iron studies were consistent with iron deficiency. He continued antibiotic therapy for the pneumonia, and at that point Dr Sterling had him start empiric steroid therapy with prednisone. He began parenteral iron replacement with Injectafer on 02/12/2019. His restaging PET/CT on showed no evidence for active malignancy. He completed his second infusion of Injectafer on 02/19/2019, and on 03/04/2019 he continued with cycle 2 of nivolumab at the 2-week dosing schedule. He tolerated it well, and he then continued nivolumab at 240 mg/m??? every 2 weeks. During treatment he had to start thyroid replacement for hypothyroidism. He then continued to have some ongoing fatigue, but he otherwised tolerate treatment well. As of 11/24/2019 he had completed cycle 21 of nivolumab at the 240 mg/m??? dosage. He has continued to tolerate very well, and overall he is doing well clinically. Plan: 1. Proceed with cycle 22 of nivolumab at 240 mg by IV infusion. 2. Labs from today were reviewed in detail and discussed with Mr Grant and a copy was given to him. WBC 5.4, hemoglobin 11.7, platelets 205,000, ANC is 3200. Potassium 3.7 creatinine level at 1.3 LFTs are normal. TSH is 3.20. Mr. Grant was advised to call if he develops any vesicles on his rash on his left lower leg. Am concerned with a linear pattern that could be developing shingles however he states it is much better today. If he has further symptoms of shingles we can treat him with the antivirals. 4. He will return for nivolumab again in 2 weeks with no labs or visit. 5. We will plan to have him back in 4 weeks for follow-up with CBC, CMP and TSH. He will be due for nivolumab again at that time as well. 6. Mr. Grant was encouraged to contact us in the interim should any questions or problems arise. SignedBy: Martínez Booker-, [facility] Robel Sterling MD <<Signature on File>>
== END 2019-12-29 23:59 | disposition home or self-care (01) ==
LOC: ONCMED 06:51
PROVIDERS: PCP Internal Medicine; Visit Provider Nurse Practitioner
DX: Z51.12 Encounter for antineoplastic immunotherapy (principal); C43.71 Malignant melanoma of right lower limb, including hip; C77.4 Secondary and unspecified malignant neoplasm of inguinal and lower limb lymph nodes; D50.9 Iron deficiency anemia, unspecified; L50.8 Other urticaria; E11.9 Type 2 diabetes mellitus without complications; K21.9 Gastro-esophageal reflux disease without esophagitis; E78.5 Hyperlipidemia, unspecified; I10 Essential (primary) hypertension; Z79.899 Other long term (current) drug therapy
CPT/HCPCS: 80053; 83615; 84443; 85025; 96413; 99214; J7050; J9299

== ENCOUNTER 2020-01-19 06:48 | Outpatient (RCR) | payer MEDICARE, SELFPAY ==
[2020-01-05 11:24] LABS: Basophils % 0.3 %; Eosinophils # 0.1 10^3/uL (0.0-0.8); Eosinophils % 2.4 %; Hematocrit 34.3 % (42.0-52.0); Hemoglobin 11.3 g/dL (11.7-16.6); Lymphocytes # 1.4 10^3/uL (0.8-4.8); Lymphocytes % 23.2 %; Mean Corpuscular HGB Conc 32.9 g/dL (30.0-36.0); Mean Corpuscular Hemoglobin 32.5 pg (28.0-34.0); Mean Corpuscular Volume 98.6 fL (80-94); Mean Platelet Volume 9.5 fL (7.4-10.4); Monocytes # 0.4 10^3/uL (0.2-0.9); Monocytes % 7.4 %; Neutrophils # 3.9 10^3/uL (1.8-7.7); Neutrophils % 66.4 %; Nucleated Red Blood Cells % 0 %; Platelet Count 212 10^3/cmm (130-400); Red Blood Count 3.48 10^6/uL (4.1-5.3); Red Cell Distribution Width 13.2 % (12.1-15.1); White Blood Count 5.8 10^3/uL (4.0-10.0)
[2020-01-05 11:52] LABS: Alanine Aminotransferase 15 U/L (0-41); Albumin Level 4.2 g/dL (3.5-5.2); Alkaline Phosphatase 122 IU/L (40-130); Anion Gap 13.1 (5-19); Aspartate Amino Transferase 22 U/L (0-40); Blood Urea Nitrogen 16 mg/dL (8-23); Calcium 8.8 mg/dL (8.5-10.5); Carbon Dioxide 28 mmol/L (22-29); Chloride 99 mmol/L (98-107); Globulin 2.9 g/dL (1.3-4.6); Glomerular Filtration Rate 55.9 mL/min (90-130); Glucose 117 mg/dL (65-115); Osmolality Calculated 279 mOsm/kg (285-295); Potassium 4.1 mmol/L (3.5-5.1); Sodium 136 mmol/L (136-145); Thyroid Stimulating Hormone 1.91 uIU/mL (0.27-4.20); Total Bilirubin 0.3 mg/dL (0.15-1.2); Total Protein 7.1 g/dL (6.6-8.7)
--- NOTE | 2020-01-08 15:14 | ONC FU_ITS ---
Dr. Sterling Patient Follow-Up Note Patient: Alfonso Grant Unit #: [id number]: 1955 Dicatated By: Robel Sterling M.D.Date of Visit:Jan 05, 2020 Onc Med Follow-up/Prog Note Chief Complaint: Melanoma. History of Present Illness: This is a 64 year-old man with melanoma of the right calcaneal region, stage IIIA (pT2a, pN2a, M0) at initial diagnosis in 2015, but with subsequent right inguinal lymph node recurrence. He had seen Dr. Ortiz in May 2016 after he had become aware of a change in a mole on his right heel. The initial biopsy showed melanoma with a Breslow depth of 1.6 mm with no ulcerations and no mitoses identified. He was referred to Dr. Messer in [place]. On 07/03/2016 he underwent wide excision with skin graft and with sentinel right inguinal lymph node biopsy. Pathology showed acral lentiginous melanoma measuring 1.4 x 1.4 cm. The residual tumor had a Breslow depth of 0.8 mm. There was no ulceration noted and there were 0 mitoses/square millimeter. A total of 3 sentinel lymph nodes were excised, 2 of which were positive for metastatic melanoma on SOX-10 and MART-1 stains. The largest size of metastatic focus measured 0.4 mm. MRI of the abdomen on 07/13/2016 showed no lymphadenopathy or other evidence of metastatic disease. PET/CT at that time also showed no evidence for metabolically active malignancy. On 07/24/2016 he underwent right inguinal lymph node dissection. There was no additional metastatic lymph node involvement. He had medical oncology consultation with Dr. Briseno, and he was recommended to consider adjuvant therapy with ipililumab. I had seen him for a second opinion evaluation on 09/10/2016. Given his high risk for recurrence, I also recommended the adjuvant therapy. He then proceeded with the high-dose ipililumab regimen, completing 4 cycles of treatment from 09/19/2016 through 11/20/2016. He experienced multiple toxicities with the treatment. During subsequent follow-up he had done well until October 2018 when his surveillance PET/CT showed a small focus of uptake in the subcutaneous tissue of the upper medial right thigh, suspicious for neoplastic involvement. There were no other sites of abnormal uptake on that study. He then underwent surgical resection of the involved area on 12/15/2018, pathology confirming metastatic melanoma. A BRAF mutation was not detected. He began treatment with nivolumab on 01/06/2019. Several days following his initial infusion he was admitted to the hospital with pneumonia/hypoxia. He developed atrial fibrillation/RVR, requiring cardioversion. He was discharged on 01/19/2019. His further treatment with nivolumab was delayed. On 01/26/2019 he was admitted to [facility] after presenting to the emergency room with respiratory distress. His chest x-ray showed development of moderate left pleural effusion with probable atelectasis or pneumonia of the left lower lobe. His echocardiogram showed loculated pericardial effusion with large bilateral pleural effusions. The pericardial effusion was noted to be more prominent towards the apex and it contained particulate material, suspicious for metastatic disease to the pericardium. He underwent thoracentesis. The pleural fluid studies included normal LDH and a negative Gram stain. The morphologic assessment showed benign appearing mesothelial cells in a background of mild mixed inflammation and blood. There was no atypia or malignancy seen. He was discharged home on 01/28/2019 on continued antibiotic coverage with Cefdnir 300 mg twice a day. His other medical illnesses include hypertension, hyperlipidemia, type II diabetes, and GERD. He also has a history of chronic urticaria. He has a very minimal smoking history, and he had quit smoking in 1980. He was seen her for a follow-up visit on 01/30/2019. He was still very weak, and he had very marginal performance status. He was still significantly anemic with his hemoglobin low at 9.2 g. He had low transferrin saturation 9.8%, consistent with iron deficiency. At that point he continued antibiotic therapy for the pneumonia. I opted to have him start empiric steroid therapy with prednisone, and he also began diuretic therapy with furosemide, as he had significant fluid retention. He returned on 02/12/2019 for parenteral iron replacement with Injectafer. Restaging PET/CT on 02/16/2018 showed no abnormal pulmonary parenchymal uptake. A small left pleural effusion showed no suspicious activity. There was no right pleural effusion noted and no pericardial effusion noted. There was no abnormal lymph node uptake, and no evidence for metabolically active malignancy. I had seen him for a follow-up visit on 02/19/2019. At that point he was feeling much better. He received his second infusion of Injectafer, and with the PET/CT showing no evidence of active malignancy, we opted to continue his treatment with nivolumab. On 03/04/2019 he returned for cycle 2 of nivolumab, administered at the 2-week dosing schedule. He tolerated it well, and he was then able to continue treatment at 2- week intervals. As of 12/22/2019 he received his 23rd cycle of nivolumab at the 240 mg dosage. He is seen for a follow-up visit. He has been feeling good generally. He has pretty good energy and activity tolerance. ECOG score is 1. He has good appetite. He has no fever or night sweats. He has no shortness of breath, cough, or chest pain. He has no GI or complaints. He does have pain in his left knee, which he attributes to working on a hard floor. He has some pain in the right knee also. He has no focal neurologic symptoms. Medications: Acetaminophen Extra Strength 1 - 2 Tablet (of 500 mg) Oral PRN, Amiodarone HCl 1 Tablet (of 200 mg) Oral daily, Cetirizine HCl 1 Tablet (of 10 mg) Oral daily PRN, Eliquis 1 Tablet (of 2.5 mg) Oral b.i.d., Furosemide 1 (20 mg) Tablet Oral daily, Gabapentin 2 Capsule (of 300 mg) Oral at bedtime, Levothyroxine Sodium 1 Tablet (of 50 mcg) Oral daily, Lipitor 1 (20 mg) Tablet Oral daily, LORazepam 1 Tablet (of 0.5 mg) Oral daily, Melatonin 1 (3 mg) Tablet Oral at bedtime, metFORMIN HCl 1 (500 mg) Tablet Oral daily, Mirtazapine 1 Tablet (of 15 mg) Oral at bedtime, Omeprazole 1 Tablet (of 20 mg) Tablet, enteric coated Oral b.i.d., predniSONE 1 Tablet (of 2.5 mg) Oral every am Allergies: No Known Allergies. Review of Systems: Constitutional - He is feeling good generally. His energy is good and he is working part-time. His appetite is good and weight is up about 5 pounds from last visit. No fever, night sweats, or hot flashes. ECOG score is 1, ENMT - No sinus congestion/drainage. No mouth sores. No sore throat or difficulty swallowing, Hematologic/Lymphatic - No abnormal bruising or bleeding, Respiratory - No shortness of breath. No cough. No pleuritic pain or hemoptysis, Cardiovascular - No angina pain. No palpitations, Gastrointestinal - No nausea or vomiting. No heartburn or acid reflux. No diarrhea or constipation. No blood in the stool or black stools, Genitourinary (M) - No dysuria or hematuria. No urinary frequency. No urgency or incontinence, Musculoskeletal - He recently has been having pain in his left knee. Denies any injury, Integumentary - No skin complications, Neurologic - No headache or dizziness. No numbness or tingling. No other focal neurologic symptoms, Psychiatric - No anxiety or depression. No insomnia. Vital Signs: Performed on Jan 05, 2020 12:36 Height - 69.00 in Weight - 201.4 lbs (HIGH) BSA - 2.07 sq.m BMI - 29.74 Temperature - 98.7 F Pulse - 54 /min (LOW) Respiration - 20 /min BP - 113/68 mm(hg) O2 Sat - 96 % Pain - 0 Physical Examination: Constitutional - He looks pretty good generally, Eyes - Sclerae nonicteric. Conjunctivae clear, ENMT - No lesions noted in the oral cavity, Hematologic/Lymphatic - No cervical, clavicular, or axillary adenopathy, Respiratory - Lungs are clear with good air movement bilaterally, Cardiovascular - Heart rhythm is regular. There is no murmur, gallop, or rub noted, Abdomen - Soft. Liver and spleen are not enlarged. There is no abdominal mass noted and there is no obvious ascites. There is no inguinal adenopathy noted, Extremities - There is some chronic swelling of the right leg. There is slight edema on the left, Neurologic - There are no focal neurologic deficits noted. Lab/Imaging: Test performed on Jan 05, 2020 11:09 Sodium 136 mmol/L TSH 1.91 uIU/mL Potassium 4.1 mmol/L Chloride 99 mmol/L CO2 28 mmol/L Anion Gap 13.1 BUN 16 mg/dL Creatinine 1.3 mg/dL Cr Clearance (Est) 76.13 mL/min eGFR 55.9 mL/min Glucose 117 mg/dL Calcium 8.8 mg/dL Protein, Total 7.1 g/dL Albumin 4.2 g/dL Globulin 2.9 g/dL Bilirubin, Total 0.3 mg/dL ALT (SGPT) 15 U/L AST (SGOT) 22 U/L Alkaline Phosphatase 122 IU/L WBC 5.8 10 3/uL RBC 3.48 10 6/uL HGB 11.3 g/dL HCT 34.3 % MCV 98.6 fL MCH 32.5 pg MCHC 32.9 g/dL RDW 13.2 % Platelet Count 212 10 3/cmm MPV 9.5 fL Neutrophils 3.9 10 3/uL Lymphocytes 1.4 10 3/uL Monocytes 0.4 10 3/uL Eosinophils 0.1 10 3/uL Basophils 0.0 10 3/uL Neutrophil % 66.4 % Lymphocyte % 23.2 % Monocyte % 7.4 % Eosinophil % 2.4 % Basophils % 0.3 % NRBC % 0 % Impression: 1. Patient with melanoma involving the right calcaneal region, stage IIIA (pT2a, pN2a, M0) at initial diagnosis in 2015. 2. His intial treatment included biopsy in May 2016 followed by wide excision with skin graft and with sentinel right inguinal lymph node biopsy on 07/03/2016 followed by right inguinal lymph node dissection on 07/24/2016. 3. He was given adjuvant therapy with ipililumab 10 mg/kg for 4 cycles, completed in October 2016. He experienced multiple toxicities with the treatment. 4. In November 2018 he had biopsy-proven recurrence in the right inguinal lymph node. 5. On 01/06/2019 he began treatment with nivolumab. His other medical illnesses include: 6. Hypertension. 7. Hyperlipidemia. 8. Type II diabetes. 9. GERD. 10. Chronic urticaria. Following his initial infusion of nivolumab he required admission to the hospital with pneumonia/hypoxia. His clinical course was complicated by atrial fibrillation/RVR, requiring cardioversion. His further treatment with nivolumab was delayed. He was then admitted admitted to the hospital again with respiratory distress. By echocardiogram he had bilateral pleural effusions and loculated pericardial effusion. The pericardial effusion was noted to contain particulate material, suspicious for metastatic disease. He underwent thoracentesis. There were no malignant cells seen in the pleural fluid. At his follow-up visit on 01/30/2019 he had very poor performance status, and he was still moderately anemic. His serum iron studies were consistent with iron deficiency. He continued antibiotic therapy for the pneumonia, and at that point I had him start empiric steroid therapy with prednisone. He began parenteral iron replacement with Injectafer on 02/12/2019. His restaging PET/CT on showed no evidence for active malignancy. He completed his second infusion of Injectafer on 02/19/2019, and on 03/04/2019 he continued with cycle 2 of nivolumab at the 2-week dosing schedule. He tolerated it well, and he then continued nivolumab at 240 mg IV every 2 weeks. During treatment he had to start thyroid replacement for hypothyroidism. He then continued to have some ongoing fatigue, but he otherwised tolerate treatment well. As of 12/22/2019 he had completed cycle 23 of nivolumab at the 240 mg dosage. He has continued to tolerate very well. He appears stable clinically with no evidence of recurrence of the melanoma. Plan: He will continue with cycle 24 of nivolumab at 240 mg by IV infusion. He will return for treatment in 2 weeks and for a follow-up visit in 4 weeks. His last scheduled treatment will be 6 weeks from now. Signed By: Robel Sterling M.D. <<Signature on File>>
== END 2020-01-29 23:59 | disposition home or self-care (01) ==
LOC: ONCMED 06:48
PROVIDERS: PCP Internal Medicine; Visit Provider Internal Medicine Medical Oncology
DX: Z51.12 Encounter for antineoplastic immunotherapy (principal); C43.71 Malignant melanoma of right lower limb, including hip; C77.4 Secondary and unspecified malignant neoplasm of inguinal and lower limb lymph nodes; I10 Essential (primary) hypertension; E78.5 Hyperlipidemia, unspecified; E11.9 Type 2 diabetes mellitus without complications; K21.9 Gastro-esophageal reflux disease without esophagitis; L50.8 Other urticaria; Z79.01 Long term (current) use of anticoagulants; Z79.84 Long term (current) use of oral hypoglycemic drugs; Z87.891 Personal history of nicotine dependence
CPT/HCPCS: 80053; 84443; 85025; 96413; 99214; J7050; J9299

== ENCOUNTER 2020-02-16 05:37 | Outpatient (RCR) | payer MEDICARE, SELFPAY ==
[2020-02-02 12:04] LABS: Basophils % 0.2 %; Eosinophils # 0.2 10^3/uL (0.0-0.8); Eosinophils % 4.2 %; Hematocrit 36.5 % (42.0-52.0); Hemoglobin 11.9 g/dL (11.7-16.6); Lymphocytes # 1.8 10^3/uL (0.8-4.8); Mean Corpuscular HGB Conc 32.6 g/dL (30.0-36.0); Mean Corpuscular Hemoglobin 31.5 pg (28.0-34.0); Mean Corpuscular Volume 96.6 fL (80-94); Mean Platelet Volume 9.5 fL (7.4-10.4); Monocytes # 0.3 10^3/uL (0.2-0.9); Monocytes % 5.6 %; Neutrophils # 3.32 10^3/uL (1.8-7.7); Neutrophils % 58.6 %; Nucleated Red Blood Cells % 0 %; Platelet Count 271 10^3/cmm (130-400); Red Blood Count 3.78 10^6/uL (4.1-5.3); Red Cell Distribution Width 12.4 % (12.1-15.1); White Blood Count 5.7 10^3/uL (4.0-10.0)
[2020-02-02 12:31] LABS: Alanine Aminotransferase 25 U/L (0-41); Albumin Level 4.1 g/dL (3.5-5.2); Alkaline Phosphatase 135 IU/L (40-130); Anion Gap 11.7 (5-19); Aspartate Amino Transferase 24 U/L (0-40); Blood Urea Nitrogen 19 mg/dL (8-23); Calcium 8.3 mg/dL (8.5-10.5); Carbon Dioxide 28 mmol/L (22-29); Chloride 99 mmol/L (98-107); Globulin 3.4 g/dL (1.3-4.6); Glomerular Filtration Rate 61.3 mL/min (90-130); Glucose 141 mg/dL (65-115); Lactate Dehydrogenase 174 U/L (135-225); Osmolality Calculated 279 mOsm/kg (285-295); Potassium 3.7 mmol/L (3.5-5.1); Sodium 135 mmol/L (136-145); Total Bilirubin 0.3 mg/dL (0.15-1.2); Total Protein 7.5 g/dL (6.6-8.7)
[2020-02-02] MEDS: sodium chloride 0.9% 250 ML 75 ML IV (14:04)
--- NOTE | 2020-02-07 16:11 | ONC FU_ITS ---
[facility] Patient Note Patient: Alfonso Grant Unit #: [id number]: 1955 Dictated By: Martínez BookerDate of Visit: Feb 02, 2020 Onc MED Follow-Up/Prog Note Chief Complaint: Melanoma. History of Present Illness: Mr Grant is a 64 year-old man with melanoma of the right calcaneal region, stage IIIA (pT2a, pN2a, M0) at initial diagnosis in 2015, but with subsequent right inguinal lymph node recurrence. He had seen Dr. Ortiz in May 2016 after he had become aware of a change in a mole on his right heel. The initial biopsy showed melanoma with a Breslow depth of 1.6 mm with no ulcerations and no mitoses identified. He was referred to Dr. Messer in [place]. On 07/03/2016 he underwent wide excision with skin graft and with sentinel right inguinal lymph node biopsy. Pathology showed acral lentiginous melanoma measuring 1.4 x 1.4 cm. The residual tumor had a Breslow depth of 0.8 mm. There was no ulceration noted and there were 0 mitoses/square millimeter. A total of 3 sentinel lymph nodes were excised, 2 of which were positive for metastatic melanoma on SOX-10 and MART-1 stains. The largest size of metastatic focus measured 0.4 mm. MRI of the abdomen on 07/13/2016 showed no lymphadenopathy or other evidence of metastatic disease. PET/CT at that time also showed no evidence for metabolically active malignancy. On 07/24/2016 he underwent right inguinal lymph node dissection. There was no additional metastatic lymph node involvement. He had medical oncology consultation with Dr. Briseno, and he was recommended to consider adjuvant therapy with ipililumab. Dr Sterling had seen him for a second opinion evaluation on 09/10/2016. Given his high risk for recurrence, he also recommended the adjuvant therapy. He then proceeded with the high-dose ipililumab regimen, completing 4 cycles of treatment from 09/19/2016 through 11/20/2016. He experienced multiple toxicities with the treatment. During subsequent follow-up he had done well until October 2018 when his surveillance PET/CT showed a small focus of uptake in the subcutaneous tissue of the upper medial right thigh, suspicious for neoplastic involvement. There were no other sites of abnormal uptake on that study. He then underwent surgical resection of the involved area on 12/15/2018, pathology confirming metastatic melanoma. A BRAF mutation was not detected. He began treatment with nivolumab on 01/06/2019. Several days following his initial infusion he was admitted to the hospital with pneumonia/hypoxia. He developed atrial fibrillation/RVR, requiring cardioversion. He was discharged on 01/19/2019. His further treatment with nivolumab was delayed. On 01/26/2019 he was admitted to [facility] after presenting to the emergency room with respiratory distress. His chest x-ray showed development of moderate left pleural effusion with probable atelectasis or pneumonia of the left lower lobe. His echocardiogram showed loculated pericardial effusion with large bilateral pleural effusions. The pericardial effusion was noted to be more prominent towards the apex and it contained particulate material, suspicious for metastatic disease to the pericardium. He underwent thoracentesis. The pleural fluid studies included normal LDH and a negative Gram stain. The morphologic assessment showed benign appearing mesothelial cells in a background of mild mixed inflammation and blood. There was no atypia or malignancy seen. He was discharged home on 01/28/2019 on continued antibiotic coverage with Cefdnir 300 mg twice a day. His other medical illnesses include hypertension, hyperlipidemia, type II diabetes, and GERD. He also has a history of chronic urticaria. He has a very minimal smoking history, and he had quit smoking in 1980. He was seen her for a follow-up visit on 01/30/2019. He was still very weak, and he had very marginal performance status. He was still significantly anemic with his hemoglobin low at 9.2 g. He had low transferrin saturation 9.8%, consistent with iron deficiency. At that point he continued antibiotic therapy for the pneumonia. Dr Sterling opted to have him start empiric steroid therapy with prednisone, and he also began diuretic therapy with furosemide, as he had significant fluid retention. He returned on 02/12/2019 for parenteral iron replacement with Injectafer. Restaging PET/CT on 02/16/2018 showed no abnormal pulmonary parenchymal uptake. A small left pleural effusion showed no suspicious activity. There was no right pleural effusion noted and no pericardial effusion noted. There was no abnormal lymph node uptake, and no evidence for metabolically active malignancy. Dr Sterling had seen him for a follow-up visit on 02/19/2019. At that point he was feeling much better. He received his second infusion of Injectafer, and with the PET/CT showing no evidence of active malignancy, we opted to continue his treatment with nivolumab. On 03/04/2019 he returned for cycle 2 of nivolumab, administered at the 2-week dosing schedule. He tolerated it well, and he was then able to continue treatment at 2- week intervals. As of 01/19/2020 he received his 25th cycle of nivolumab at the 240 mg/m??? dosage. Mr. Grant is here today for follow-up. He is due for cycle 26 nivolumab. He has no new concerns today. He denies any fever or chills. He denies any cough or shortness of breath. He denies any abdominal pain or diarrhea. He had had no constipation. Denies any bowel or bladder concerns. He states he is eating well his energy is good. He is doing all things that he wants to be doing. He states he thinks he is about ready to be done with treatment. He states his energy is good. He remains very active. His ECOG is 0 Past Medical History: Chronic urticaria Diabetes type II Gastroesophageal reflux disease Hyperlipidemia Hypertension Melanoma Past Surgical History: Thoracentesis Right inguinal lymph node biopsy/excision in 2019 Right inguinal lymph node dissection in 2017 Wide excision of melanoma with skin graft and sentinel right inguinal lymph node biopsy in 2017 Biopsy of skin lesion right heel in 2015 Arthroscopic right knee surgery in 2011 Left shoulder surgery in 2001 Right shoulder surgery in 1999 Tonsillectomy in 1963 - with adenoidectomy Allergies: No Known Allergies. Medications: Acetaminophen Extra Strength 1 - 2 Tablet (of 500 mg) Oral PRN Amiodarone HCl 1 Tablet (of 200 mg) Oral daily Cetirizine HCl 1 Tablet (of 10 mg) Oral daily PRN Eliquis 1 Tablet (of 2.5 mg) Oral b.i.d. Furosemide 1 (20 mg) Tablet Oral daily Gabapentin 2 Capsule (of 300 mg) Oral at bedtime Levothyroxine Sodium 1 Tablet (of 50 mcg) Oral daily Lipitor 1 (20 mg) Tablet Oral daily LORazepam 1 Tablet (of 0.5 mg) Oral daily Melatonin 1 (3 mg) Tablet Oral at bedtime metFORMIN HCl 1 (500 mg) Tablet Oral daily Mirtazapine 1 Tablet (of 15 mg) Oral at bedtime Omeprazole 1 Tablet (of 20 mg) Tablet, enteric coated Oral b.i.d. predniSONE 1 Tablet (of 2.5 mg) Oral every am Family History: Mr. Grant's father is : diabetes, and heart disease, and hypertension. His father has heart disease and diabetes, and he has been treated for colon cancer. He is still living at age 86. Mother has diabetes and dementia and is still living at age 86. His paternal grandfather also had colon cancer, and his paternal grandmother had breast cancer. A great grandfather on his father's side of melanoma. 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 Mr. Grant quit smoking 35 years ago but had smoked 0.5 packs/day for 3 years. He is an active drinker.He consumes 2 drinks/day. He has a history of smoking 1/2 pack of cigarettes daily for 2-3 years. He quit smoking in 1980. He chews 1 can of chewing tobacco per week . He currently drinks 2 cans of beer daily. Review Of Symptoms: Constitutional Denies fevers, chills, night sweats, excessive fatigue or weight loss. Allergic/Immunologic No reactions. Eyes Denies significant visual changes. No diplopia. No amaurosis. ENMT Denies changes in hearing, sore throat, mouth sores, difficulty or changes in swallowing ability, and/or sinus drainage. Endocrine No diabetes, thyroid disease or hormone replacement. Denies hot flashes or night sweats. Hematologic/Lymphatic Denies easy bruising or bleeding. The patient denies any tender or palpable lymph nodes. Respiratory Denies dyspnea on exertion, chest pain, cough or hemoptysis. Denies orthopnea. Cardiovascular Denies anginal chest pain, palpitations or orthopnea. Gastrointestinal Denies nausea, vomiting, diarrhea, GI bleeding, or constipation. Denies change in bowel habits and/or stool color, no heartburn or early satiety. Genitourinary (M) Denies hematuria, dysuria, increased frequency, urgency, hesitancy or incontinence. Musculoskeletal Denies joint pain, swelling or redness. No decreased range of motion. Integumentary Denies chronic rashes, inflammation, ulcerations or skin changes. Neurologic Denies headache, blurred vision, and no areas of focal weakness or numbness. Normal gait. No sensory problems. Psychiatric Denies insomnia, depression, thomas or mood swings. Vital Signs: Performed on Feb 02, 2020 13:16 Height - 69.00 in Weight - 197.8 lbs (LOW) BSA - 2.06 sq.m BMI - 29.21 Temperature - 98.2 F (LOW) Pulse - 54 /min (LOW) Respiration - 16 /min BP - 128/75 mm(hg) O2 Sat - 98 % Pain - 0,0 - Fully active, able to carry on all predisease activities without restrictions. (ECOG) Physical Examination: Constitutional Alert, oriented, no acute distress. Skin pink, warm and dry. Head Normocephalic; atraumatic. Eyes Conjunctivae and sclerae are clear and without icterus. Pupils are reactive and equal. Neck Supple without masses or thyromegaly. No jugular venous distension. Hematologic/Lymphatic No petechiae or purpura. No tender or palpable lymph nodes in the cervical or supraclavicular areas. Respiratory Lungs are clear to auscultation without rhonchi or wheezing. Cardiovascular Regular rate and rhythm of heart without murmurs,clicks, gallops or rubs. Chest Right subclavian venous access device is unremarkable. Abdomen Non-tender, non-distended, no masses, ascites. No guarding or rebound tenderness. No pulsatile masses. Back/Spine Non-tender to palpation. Extremities No visible deformities, no cyanosis, clubbing or edema. Musculoskeletal No tenderness or swelling, normal range of motion without obvious weakness. Integumentary No rashes or lesions. Neurologic No sensory or motor deficits, normal cerebellar function, normal gait. Psychiatric Alert and oriented times three. Coherent speech. Verbalizes understanding of our discussions today. Laboratory:Test performed on Feb 02, 2020 11:28 LDH (Total) 174 U/L Sodium 135 mmol/L TSH 3.50 uIU/mL Potassium 3.7 mmol/L Chloride 99 mmol/L CO2 28 mmol/L Anion Gap 11.7 BUN 19 mg/dL Creatinine 1.2 mg/dL Cr Clearance (Est) 81.0000 mL/min eGFR 61.3 mL/min Glucose 141 mg/dL Calcium 8.3 mg/dL Protein, Total 7.5 g/dL Albumin 4.1 g/dL Globulin 3.4 g/dL Bilirubin, Total 0.3 mg/dL ALT (SGPT) 25 U/L AST (SGOT) 24 U/L Alkaline Phosphatase 135 IU/L WBC 5.7 10 3/uL RBC 3.78 10 6/uL HGB 11.9 g/dL HCT 36.5 % MCV 96.6 fL MCH 31.5 pg MCHC 32.6 g/dL RDW 12.4 % Platelet Count 271 10 3/cmm MPV 9.5 fL Neutrophils 3.32 10 3/uL Lymphocytes 1.8 10 3/uL Monocytes 0.3 10 3/uL Eosinophils 0.2 10 3/uL Basophils 0.0 10 3/uL Neutrophil % 58.6 % Lymphocyte % 31.0 % Monocyte % 5.6 % Eosinophil % 4.2 % Basophils % 0.2 % NRBC % 0 % Impression: 1. Patient with melanoma involving the right calcaneal region, stage IIIA (pT2a, pN2a, M0) at initial diagnosis in 2015. 2. His intial treatment included biopsy in May 2016 followed by wide excision with skin graft and with sentinel right inguinal lymph node biopsy on 07/03/2016 followed by right inguinal lymph node dissection on 07/24/2016. 3. He was given adjuvant therapy with ipililumab 10 mg/kg for 4 cycles, completed in October 2016. He experienced multiple toxicities with the treatment. 4. In November 2018 he had biopsy-proven recurrence in the right inguinal lymph node. 5. On 01/06/2019 he began treatment with nivolumab. His other medical illnesses include: 6. Hypertension. 7. Hyperlipidemia. 8. Type II diabetes. 9. GERD. 10. Chronic urticaria. Following his initial infusion of nivolumab he required admission to the hospital with pneumonia/hypoxia. His clinical course was complicated by atrial fibrillation/RVR, requiring cardioversion. His further treatment with nivolumab was delayed. He was then admitted admitted to the hospital again with respiratory distress. By echocardiogram he had bilateral pleural effusions and loculated pericardial effusion. The pericardial effusion was noted to contain particulate material, suspicious for metastatic disease. He underwent thoracentesis. There were no malignant cells seen in the pleural fluid. At his follow-up visit on 01/30/2019 he had very poor performance status, and he was still moderately anemic. His serum iron studies were consistent with iron deficiency. He continued antibiotic therapy for the pneumonia, and at that point Dr Sterling had him start empiric steroid therapy with prednisone. He began parenteral iron replacement with Injectafer on 02/12/2019. His restaging PET/CT on showed no evidence for active malignancy. He completed his second infusion of Injectafer on 02/19/2019, and on 03/04/2019 he continued with cycle 2 of nivolumab at the 2-week dosing schedule. He tolerated it well, and he then continued nivolumab at 240 mg IV every 2 weeks. During treatment he had to start thyroid replacement for hypothyroidism. He then continued to have some ongoing fatigue, but he otherwised tolerate treatment well. As of 01/19/2020 he had completed cycle 25 of nivolumab at the 240 mg dosage. He has continued to tolerate very well. He appears stable clinically with no evidence of recurrence of the melanoma. Plan: 1. Proceed with cycle 26 of nivolumab at 240 mg by IV infusion. 2. Labs from today were reviewed in detail and discussed with Mr Grant and a copy was given to him. WBC 5.7, hemoglobin 11.9, platelets 271,000, ANC is 3300. Potassium 3.7 creatinine level at 1.2 LFTs are normal. TSH is 3.50. 3. He states he is due for follow-up with PET/CT imaging in 6 weeks in [place]. I encouraged him to keep that appointment. 4. He will return for nivolumab again in 2 weeks with no labs or visit and will receive his 5. We will plan to have him back in 4 weeks for follow-up with CBC, CMP and TSH. He will have completed his last/ nivolumab again at that time as well. 6. Mr. Grant was encouraged to contact us in the interim should any questions or problems arise. Signed By: Martínez Booker-SASHA, AOCNP Robel Sterling MD <<Signature on File>>
== END 2020-02-29 23:59 | disposition home or self-care (01) ==
LOC: ONCMED 05:37
PROVIDERS: PCP Internal Medicine; Visit Provider Nurse Practitioner
DX: Z51.12 Encounter for antineoplastic immunotherapy (principal); C43.71 Malignant melanoma of right lower limb, including hip; C77.4 Secondary and unspecified malignant neoplasm of inguinal and lower limb lymph nodes; D50.9 Iron deficiency anemia, unspecified; L50.8 Other urticaria; E11.9 Type 2 diabetes mellitus without complications; K21.9 Gastro-esophageal reflux disease without esophagitis; E78.5 Hyperlipidemia, unspecified; I10 Essential (primary) hypertension
CPT/HCPCS: 80053; 83615; 84443; 85025; 96413; 99214; J7050; J9299

== ENCOUNTER 2020-03-21 10:30 | Outpatient (RCR) | payer MEDICARE, SELFPAY ==
[2020-03-15 13:09] LABS: Basophils % 0.3 %; Eosinophils # 0.2 10^3/uL (0.0-0.8); Eosinophils % 3.1 %; Hematocrit 35.4 % (42.0-52.0); Hemoglobin 11.6 g/dL (11.7-16.6); Lymphocytes # 1.2 10^3/uL (0.8-4.8); Lymphocytes % 19.6 %; Mean Corpuscular HGB Conc 32.8 g/dL (30.0-36.0); Mean Corpuscular Hemoglobin 31.7 pg (28.0-34.0); Mean Corpuscular Volume 96.7 fL (80-94); Mean Platelet Volume 9.8 fL (7.4-10.4); Monocytes # 0.4 10^3/uL (0.2-0.9); Neutrophils # 4.11 10^3/uL (1.8-7.7); Neutrophils % 69.8 %; Nucleated Red Blood Cells % 0 %; Platelet Count 235 10^3/cmm (130-400); Red Blood Count 3.66 10^6/uL (4.1-5.3); Red Cell Distribution Width 12.6 % (12.1-15.1); White Blood Count 5.9 10^3/uL (4.0-10.0)
[2020-03-15 13:54] LABS: Alanine Aminotransferase 17 U/L (0-41); Albumin Level 4.1 g/dL (3.5-5.2); Alkaline Phosphatase 142 IU/L (40-130); Anion Gap 14.8 (5-19); Aspartate Amino Transferase 19 U/L (0-40); Blood Urea Nitrogen 16 mg/dL (8-23); Calcium 8.7 mg/dL (8.5-10.5); Carbon Dioxide 26 mmol/L (22-29); Chloride 102 mmol/L (98-107); Glomerular Filtration Rate 55.9 mL/min (90-130); Glucose 138 mg/dL (65-115); Osmolality Calculated 287 mOsm/kg (285-295); Potassium 3.8 mmol/L (3.5-5.1); Sodium 139 mmol/L (136-145); Thyroid Stimulating Hormone 1.57 uIU/mL (0.27-4.20); Total Bilirubin 0.3 mg/dL (0.15-1.2); Total Protein 7.1 g/dL (6.6-8.7)
--- NOTE | 2020-03-19 11:58 | ONC FU_ITS ---
Dr. Sterling Patient Follow-Up Note Patient: Alfonso Grant Unit #: [id number]: 1955 Dicatated By: Robel Sterling M.D.Date of Visit:Mar 15, 2020 Onc Med Follow-up/Prog Note Chief Complaint: Melanoma. History of Present Illness: This is a 64 year-old man with melanoma of the right calcaneal region, stage IIIA (pT2a, pN2a, M0) at initial diagnosis in 2015, but with subsequent right inguinal lymph node recurrence. He had seen Dr. Ortiz in May 2016 after he had become aware of a change in a mole on his right heel. The initial biopsy showed melanoma with a Breslow depth of 1.6 mm with no ulcerations and no mitoses identified. He was referred to Dr. Messer in [place]. On 07/03/2016 he underwent wide excision with skin graft and with sentinel right inguinal lymph node biopsy. Pathology showed acral lentiginous melanoma measuring 1.4 x 1.4 cm. The residual tumor had a Breslow depth of 0.8 mm. There was no ulceration noted and there were 0 mitoses/square millimeter. A total of 3 sentinel lymph nodes were excised, 2 of which were positive for metastatic melanoma on SOX-10 and MART-1 stains. The largest size of metastatic focus measured 0.4 mm. MRI of the abdomen on 07/13/2016 showed no lymphadenopathy or other evidence of metastatic disease. PET/CT at that time also showed no evidence for metabolically active malignancy. On 07/24/2016 he underwent right inguinal lymph node dissection. There was no additional metastatic lymph node involvement. He had medical oncology consultation with Dr. Briseno, and he was recommended to consider adjuvant therapy with ipililumab. I had seen him for a second opinion evaluation on 09/10/2016. Given his high risk for recurrence, I also recommended the adjuvant therapy. He then proceeded with the high-dose ipililumab regimen, completing 4 cycles of treatment from 09/19/2016 through 11/20/2016. He experienced multiple toxicities with the treatment. During subsequent follow-up he had done well until October 2018 when his surveillance PET/CT showed a small focus of uptake in the subcutaneous tissue of the upper medial right thigh, suspicious for neoplastic involvement. There were no other sites of abnormal uptake on that study. He then underwent surgical resection of the involved area on 12/15/2018, pathology confirming metastatic melanoma. A BRAF mutation was not detected. He began treatment with nivolumab on 01/06/2019. Several days following his initial infusion he was admitted to the hospital with pneumonia/hypoxia. He developed atrial fibrillation/RVR, requiring cardioversion. He was discharged on 01/19/2019. His further treatment with nivolumab was delayed. On 01/26/2019 he was admitted to [facility] after presenting to the emergency room with respiratory distress. His chest x-ray showed development of moderate left pleural effusion with probable atelectasis or pneumonia of the left lower lobe. His echocardiogram showed loculated pericardial effusion with large bilateral pleural effusions. The pericardial effusion was noted to be more prominent towards the apex and it contained particulate material, suspicious for metastatic disease to the pericardium. He underwent thoracentesis. The pleural fluid studies included normal LDH and a negative Gram stain. The morphologic assessment showed benign appearing mesothelial cells in a background of mild mixed inflammation and blood. There was no atypia or malignancy seen. He was discharged home on 01/28/2019 on continued antibiotic coverage with Cefdnir 300 mg twice a day. His other medical illnesses include hypertension, hyperlipidemia, type II diabetes, and GERD. He also has a history of chronic urticaria. He has a very minimal smoking history, and he had quit smoking in 1980. He was seen her for a follow-up visit on 01/30/2019. He was still very weak, and he had very marginal performance status. He was still significantly anemic with his hemoglobin low at 9.2 g. He had low transferrin saturation 9.8%, consistent with iron deficiency. At that point he continued antibiotic therapy for the pneumonia. I opted to have him start empiric steroid therapy with prednisone, and he also began diuretic therapy with furosemide, as he had significant fluid retention. He returned on 02/12/2019 for parenteral iron replacement with Injectafer. Restaging PET/CT on 02/16/2018 showed no abnormal pulmonary parenchymal uptake. A small left pleural effusion showed no suspicious activity. There was no right pleural effusion noted and no pericardial effusion noted. There was no abnormal lymph node uptake, and no evidence for metabolically active malignancy. I had seen him for a follow-up visit on 02/19/2019. At that point he was feeling much better. He received his second infusion of Injectafer, and with the PET/CT showing no evidence of active malignancy, we opted to continue his treatment with nivolumab. On 03/04/2019 he returned for cycle 2 of nivolumab, administered at the 2-week dosing schedule. He tolerated it well, and he was then able to continue treatment at 2- week intervals. As of 02/16/2020 he received his 27th cycle of nivolumab at the 240 mg dosage, which completed a year of treatment. He is seen for a follow-up visit. He has been feeling good generally, though he still has somewhat limited activity. His ECOG score is 1. He has good appetite. He has no fever or night sweats. He has no shortness of breath, cough, or chest pain. He has some mild constipation. He has no other GI or complaints. He has some joint pain, mainly in the knees, and he has some persistent swelling in the right leg. He also has a little numbness in the right leg. He does not complain of headache, and he has no other focal neurologic symptoms. Medications: Acetaminophen Extra Strength 1 - 2 Tablet (of 500 mg) Oral PRN, Amiodarone HCl 1 Tablet (of 200 mg) Oral daily, Cetirizine HCl 1 Tablet (of 10 mg) Oral daily PRN, Eliquis 1 Tablet (of 2.5 mg) Oral b.i.d., Furosemide 1 (20 mg) Tablet Oral daily, Gabapentin 2 Capsule (of 300 mg) Oral at bedtime, Levothyroxine Sodium 1 Tablet (of 50 mcg) Oral daily, Lipitor 1 (20 mg) Tablet Oral daily, LORazepam 1 Tablet (of 0.5 mg) Oral daily, Melatonin 1 (3 mg) Tablet Oral at bedtime, metFORMIN HCl 1 (500 mg) Tablet Oral daily, Mirtazapine 1 Tablet (of 15 mg) Oral at bedtime, Omeprazole 1 Tablet (of 20 mg) Tablet, enteric coated Oral b.i.d., predniSONE 1 Tablet (of 2.5 mg) Oral every am Allergies: No Known Allergies. Review of Systems: Constitutional - He has energy is okay, though he still has somewhat limited activity. Appetite is good and weight is stable. No fever or night sweats. ECOG score is 1, ENMT - No sinus congestion/drainage. No mouth sores. No sore throat or difficulty swallowing, Hematologic/Lymphatic - No abnormal bruising or bleeding, Respiratory - No shortness of breath. No cough. No pleuritic pain or hemoptysis, Cardiovascular - No angina pain. No palpitations, Gastrointestinal - No nausea or vomiting. No heartburn or acid reflux. He has some mild constipation. No blood in the stool or black stools, Genitourinary (M) - No dysuria or hematuria. No urinary frequency. No urgency or incontinence, Musculoskeletal - He has some joint pain, mainly in the knees, Integumentary - No skin rash or other skin lesions, Neurologic - No headache or dizziness. He still has a little numbness in the right leg. He has no other focal neurologic symptoms, Psychiatric - No anxiety or depression. No insomnia. Vital Signs: Performed on Mar 15, 2020 13:59 Height - 69.00 in Weight - 199.0 lbs (HIGH) BSA - 2.06 sq.m BMI - 29.39 Temperature - 98.2 F (LOW) Pulse - 54 /min (LOW) Respiration - 20 /min BP - 111/63 mm(hg) O2 Sat - 98 % Pain - 0 Physical Examination: Constitutional - He looks pretty good generally, Eyes - Sclerae nonicteric. Conjunctivae clear, ENMT - No lesions noted in the oral cavity, Hematologic/Lymphatic - No cervical, clavicular, or axillary adenopathy, Respiratory - Lungs are clear with good air movement bilaterally, Cardiovascular - Heart rhythm is regular. There is no murmur, gallop, or rub noted, Abdomen - Soft. Liver and spleen are not enlarged. There is no abdominal mass noted and there is no obvious ascites. There is no inguinal adenopathy noted, Extremities - There is mild swelling of the right leg, which is chronic. There is otherwise no edema. Dorsalis pedis pulses are palpable bilaterally, Integumentary - No suspicious skin lesions noted, Neurologic - There are no focal neurologic deficits noted. Lab/Imaging: Test performed on Mar 15, 2020 12:35 Sodium 139 mmol/L TSH 1.57 uIU/mL Potassium 3.8 mmol/L Chloride 102 mmol/L CO2 26 mmol/L Anion Gap 14.8 BUN 16 mg/dL Creatinine 1.3 mg/dL Cr Clearance (Est) 75.2200 mL/min eGFR 55.9 mL/min Glucose 138 mg/dL Calcium 8.7 mg/dL Osmolality - Calculated 287 mOsm/kg Protein, Total 7.1 g/dL Albumin 4.1 g/dL Globulin 3.0 g/dL Bilirubin, Total 0.3 mg/dL ALT (SGPT) 17 U/L AST (SGOT) 19 U/L Alkaline Phosphatase 142 IU/L WBC 5.9 10 3/uL RBC 3.66 10 6/uL HGB 11.6 g/dL HCT 35.4 % MCV 96.7 fL MCH 31.7 pg MCHC 32.8 g/dL RDW 12.6 % Platelet Count 235 10 3/cmm MPV 9.8 fL Neutrophils 4.11 10 3/uL Lymphocytes 1.2 10 3/uL Monocytes 0.4 10 3/uL Eosinophils 0.2 10 3/uL Basophils 0.0 10 3/uL Neutrophil % 69.8 % Lymphocyte % 19.6 % Monocyte % 7.0 % Eosinophil % 3.1 % Basophils % 0.3 % NRBC % 0 % Impression: 1. Patient with melanoma involving the right calcaneal region, stage IIIA (pT2a, pN2a, M0) at initial diagnosis in 2015. 2. His intial treatment included biopsy in May 2016 followed by wide excision with skin graft and with sentinel right inguinal lymph node biopsy on 07/03/2016 followed by right inguinal lymph node dissection on 07/24/2016. 3. He was given adjuvant therapy with ipililumab 10 mg/kg for 4 cycles, completed in October 2016. He experienced multiple toxicities with the treatment. 4. In November 2018 he had biopsy-proven recurrence in the right inguinal lymph node. 5. On 01/06/2019 he began treatment with nivolumab. His other medical illnesses include: 6. Hypertension. 7. Hyperlipidemia. 8. Type II diabetes. 9. GERD. 10. Chronic urticaria. Following his initial infusion of nivolumab he required admission to the hospital with pneumonia/hypoxia. His clinical course was complicated by atrial fibrillation/RVR, requiring cardioversion. His further treatment with nivolumab was delayed. He was then admitted admitted to the hospital again with respiratory distress. By echocardiogram he had bilateral pleural effusions and loculated pericardial effusion. The pericardial effusion was noted to contain particulate material, suspicious for metastatic disease. He underwent thoracentesis. There were no malignant cells seen in the pleural fluid. At his follow-up visit on 01/30/2019 he had very poor performance status, and he was still moderately anemic. His serum iron studies were consistent with iron deficiency. He continued antibiotic therapy for the pneumonia, and at that point I had him start empiric steroid therapy with prednisone. He began parenteral iron replacement with Injectafer on 02/12/2019. His restaging PET/CT on showed no evidence for active malignancy. He completed his second infusion of Injectafer on 02/19/2019, and on 03/04/2019 he continued with cycle 2 of nivolumab at the 2-week dosing schedule. He tolerated it well, and he then continued nivolumab at 240 mg IV every 2 weeks. During treatment he had to start thyroid replacement for hypothyroidism. He then continued to have some ongoing fatigue, but he otherwised tolerate treatment well. As of 02/16/2020 he had received cycle 27 of nivolumab at the 240 mg dosage, which completed a full year of treatment. Overall, he tolerated it very well. At this point he appears to be doing well clinically with no evidence of recurrence of the melanoma. Plan: He will now be followed on observation/expectant management. He is being scheduled for restaging PET/CT next week. Assuming that is negative, he would not require any further routine imaging. I will tentatively plan a follow-up visit in 3 months. Signed By: Robel Sterling M.D. <<Signature on File>>
--- NOTE | 2020-03-21 09:18 | CT_ITS ---
WS: [id number] CT CHEST, ABDOMEN, AND PELVIS TECHNIQUE: Contrast-enhanced CT of the chest, abdomen, and pelvis with coronal and sagittal reformatt ed images. CLINICAL INFORMATION: RESTAGING EVALUATION/HX OF CANCER-METASTATIC MELANOMA COMPARISON: CT abdomen pelvis and PET/CT DLP: 1874.[address] scans at [facility] use at least one of these dose optimization techniques: automat ed exposure control; mA and/or kV adjustment per patient size (includes targeted exams where dose is matched to clinical indication); or iterative reconstruction. CT CHEST: Lungs are well aerated. No acute pulmonary infiltrates. No suspicious pulmonary parenchymal opacities . No mediastinal or hilar lymphadenopathy. No axillary lymphadenopathy. CT ABDOMEN AND PELVIS: Normal liver. Cholecystectomy clips. Normal spleen. Small esophageal hiatal hernia. Adrenal glands ar e normal. Normal renal parenchymal enhancement. No hydronephrosis. Small left renal cysts. Fatty atro phy of the pancreas. Normal caliber abdominal aorta. Mild aortic calcification. Sigmoid diverticulosis. No evidence of small or large bowel obstruction. Normal appendix. No free flu id in the abdomen or pelvis. No periaortic or inguinal lymphadenopathy. Surgical clips right groin. Lumbar curve. Degenerative disc disease worse at L2-3. Incidental fat-con taining umbilical hernia. Fat-containing left inguinal hernia. CT/CT chest abd pel w con* IMPRESSION: 1. No evidence of metastatic disease in the chest abdomen or pelvis. 2. Both lungs are well aerated. No suspicious pulmonary parenchymal opacities. 3. No mediastinal or hilar lymphadenopathy. 4. Small esophageal hiatal hernia. 5. Cholecystectomy clips. 6. Sigmoid diverticulosis. 7. No adenopathy in the abdomen or pelvis.
[2020-03-21] MEDS: iohexol 300 mg/mL 50 mL Btl PO (09:28)
[2020-03-21] MEDS: iodixanol 320 mg/mL 100mL Btl IV (10:25)
== END 2020-03-30 23:59 | disposition home or self-care (01) ==
LOC: ONCMED 10:30
PROVIDERS: PCP Internal Medicine; Visit Provider Internal Medicine Medical Oncology
DX: C77.4 Secondary and unspecified malignant neoplasm of inguinal and lower limb lymph nodes (principal); C43.71 Malignant melanoma of right lower limb, including hip; K57.30 Diverticulosis of large intestine without perforation or abscess without bleeding; Z90.49 Acquired absence of other specified parts of digestive tract; I10 Essential (primary) hypertension; E78.5 Hyperlipidemia, unspecified; E11.9 Type 2 diabetes mellitus without complications; K21.9 Gastro-esophageal reflux disease without esophagitis
CPT/HCPCS: 36591; 71260; 74177; 80053; 84443; 85025; G0463; Q9967

== ENCOUNTER 2020-04-12 06:17 | Outpatient (RCR) | payer MEDICARE, SELFPAY | END 2020-04-30 23:59 | disposition home or self-care (01) | LOC: ONCMED 06:17 | PROVIDERS: PCP Internal Medicine; Visit Provider Nurse Practitioner | DX: Z45.2 Encounter for adjustment and management of vascular access device (principal) | CPT/HCPCS: 96523 ==

== ENCOUNTER 2020-05-16 12:39 | Outpatient (RCR) | payer MEDICARE, SELFPAY | END 2020-05-30 23:59 | disposition home or self-care (01) | LOC: ONCMED 12:39 | PROVIDERS: PCP Internal Medicine; Visit Provider Nurse Practitioner | DX: Z45.2 Encounter for adjustment and management of vascular access device (principal) | CPT/HCPCS: 96523 ==

== ENCOUNTER 2020-06-21 06:25 | Outpatient (RCR) | payer MEDICARE, SELFPAY ==
[2020-06-21 12:53] LABS: Basophils % 0.5 %; Eosinophils # 0.3 10^3/uL (0.0-0.8); Eosinophils % 3.4 %; Hematocrit 36.6 % (42.0-52.0); Hemoglobin 11.8 g/dL (11.7-16.6); Lymphocytes # 1.7 10^3/uL (0.8-4.8); Lymphocytes % 22.2 %; Mean Corpuscular HGB Conc 32.2 g/dL (30.0-36.0); Mean Corpuscular Hemoglobin 31.1 pg (28.0-34.0); Mean Corpuscular Volume 96.3 fL (80-94); Mean Platelet Volume 10.3 fL (7.4-10.4); Monocytes # 0.6 10^3/uL (0.2-0.9); Monocytes % 8.2 %; Neutrophils # 5.02 10^3/uL (1.8-7.7); Neutrophils % 65.4 %; Nucleated Red Blood Cells % 0 %; Platelet Count 241 10^3/cmm (130-400); Red Cell Distribution Width 13.2 % (12.1-15.1); White Blood Count 7.7 10^3/uL (4.0-10.0)
[2020-06-21 13:00] LABS: Alanine Aminotransferase 18 U/L (0-41); Albumin Level 4.4 g/dL (3.5-5.2); Alkaline Phosphatase 119 IU/L (40-130); Anion Gap 13.8 (5-19); Aspartate Amino Transferase 16 U/L (0-40); Blood Urea Nitrogen 15 mg/dL (8-23); Calcium 8.8 mg/dL (8.5-10.5); Carbon Dioxide 30 mmol/L (22-29); Chloride 102 mmol/L (98-107); Globulin 2.9 g/dL (1.3-4.6); Glomerular Filtration Rate 67.8 mL/min (90-130); Glucose 121 mg/dL (65-115); Lactate Dehydrogenase 154 U/L (135-225); Osmolality Calculated 296 mOsm/kg (285-295); Potassium 3.8 mmol/L (3.5-5.1); Sodium 142 mmol/L (136-145); Total Bilirubin 0.3 mg/dL (0.15-1.2); Total Protein 7.3 g/dL (6.6-8.7)
--- NOTE | 2020-06-25 11:45 | ONC FU_ITS ---
Dr. Sterling Patient Follow-Up Note Patient: Alfonso Grant Unit #: [id number]: [id number] Dicatated By: Robel Sterling M.D.Date of Visit:Jun 21, 2020 Onc Med Follow-up/Prog Note Chief Complaint: Melanoma. History of Present Illness: This is a 64 year-old man with melanoma of the right calcaneal region, stage IIIA (pT2a, pN2a, M0) at initial diagnosis in 2015, but with subsequent right inguinal lymph node recurrence. He had seen Dr. Ortiz in May 2016 after he had become aware of a change in a mole on his right heel. The initial biopsy showed melanoma with a Breslow depth of 1.6 mm with no ulcerations and no mitoses identified. He was referred to Dr. Messer in [place]. On 07/03/2016 he underwent wide excision with skin graft and with sentinel right inguinal lymph node biopsy. Pathology showed acral lentiginous melanoma measuring 1.4 x 1.4 cm. The residual tumor had a Breslow depth of 0.8 mm. There was no ulceration noted and there were 0 mitoses/square millimeter. A total of 3 sentinel lymph nodes were excised, 2 of which were positive for metastatic melanoma on SOX-10 and MART-1 stains. The largest size of metastatic focus measured 0.4 mm. MRI of the abdomen on 07/13/2016 showed no lymphadenopathy or other evidence of metastatic disease. PET/CT at that time also showed no evidence for metabolically active malignancy. On 07/24/2016 he underwent right inguinal lymph node dissection. There was no additional metastatic lymph node involvement. He had medical oncology consultation with Dr. Briseno, and he was recommended to consider adjuvant therapy with ipililumab. I had seen him for a second opinion evaluation on 09/10/2016. Given his high risk for recurrence, I also recommended the adjuvant therapy. He then proceeded with the high-dose ipililumab regimen, completing 4 cycles of treatment from 09/19/2016 through 11/20/2016. He experienced multiple toxicities with the treatment. During subsequent follow-up he had done well until October 2018 when his surveillance PET/CT showed a small focus of uptake in the subcutaneous tissue of the upper medial right thigh, suspicious for neoplastic involvement. There were no other sites of abnormal uptake on that study. He then underwent surgical resection of the involved area on 12/15/2018, pathology confirming metastatic melanoma. A BRAF mutation was not detected. He began treatment with nivolumab on 01/06/2019. Several days following his initial infusion he was admitted to the hospital with pneumonia/hypoxia. He developed atrial fibrillation/RVR, requiring cardioversion. He was discharged on 01/19/2019. His further treatment with nivolumab was delayed. On 01/26/2019 he was admitted to [facility] after presenting to the emergency room with respiratory distress. His chest x-ray showed development of moderate left pleural effusion with probable atelectasis or pneumonia of the left lower lobe. His echocardiogram showed loculated pericardial effusion with large bilateral pleural effusions. The pericardial effusion was noted to be more prominent towards the apex and it contained particulate material, suspicious for metastatic disease to the pericardium. He underwent thoracentesis. The pleural fluid studies included normal LDH and a negative Gram stain. The morphologic assessment showed benign appearing mesothelial cells in a background of mild mixed inflammation and blood. There was no atypia or malignancy seen. He was discharged home on 01/28/2019 on continued antibiotic coverage with Cefdnir 300 mg twice a day. His other medical illnesses include hypertension, hyperlipidemia, type II diabetes, and GERD. He also has a history of chronic urticaria. He has a very minimal smoking history, and he had quit smoking in 1980. He was seen her for a follow-up visit on 01/30/2019. He was still very weak, and he had very marginal performance status. He was still significantly anemic with his hemoglobin low at 9.2 g. He had low transferrin saturation 9.8%, consistent with iron deficiency. At that point he continued antibiotic therapy for the pneumonia. I opted to have him start empiric steroid therapy with prednisone, and he also began diuretic therapy with furosemide, as he had significant fluid retention. He returned on 02/12/2019 for parenteral iron replacement with Injectafer. Restaging PET/CT on 02/16/2018 showed no abnormal pulmonary parenchymal uptake. A small left pleural effusion showed no suspicious activity. There was no right pleural effusion noted and no pericardial effusion noted. There was no abnormal lymph node uptake, and no evidence for metabolically active malignancy. I had seen him for a follow-up visit on 02/19/2019. At that point he was feeling much better. He received his second infusion of Injectafer, and with the PET/CT showing no evidence of active malignancy, we opted to continue his treatment with nivolumab. On 03/04/2019 he returned for cycle 2 of nivolumab, administered at the 2-week dosing schedule. He tolerated it well, and he was then able to continue treatment at 2- week intervals. As of 02/16/2020 he received his 27th cycle of nivolumab at the 240 mg dosage, which completed a year of treatment. Restaging CT scans on 03/21/2020 showed no evidence for metastatic disease in the chest, abdomen, or pelvis. With those findings, he was followed on observation/expectant management. He is seen for a follow-up visit. He has been feeling pretty good generally. His energy level has been pretty good. He is able to do light work. ECOG score is 1. He has good appetite. He has no fever or night sweats. He has a little bit of cough, attributable to sinus drainage. He does not complain of shortness of breath or chest pain. He has no GI or complaints. He has normal joint/muscle aching. He does not complain of headache or dizziness. He has no focal neurologic symptoms. Medications: Acetaminophen Extra Strength 1 - 2 Tablet (of 500 mg) Oral PRN, Amiodarone HCl 1 Tablet (of 200 mg) Oral daily, Cetirizine HCl 1 Tablet (of 10 mg) Oral four times a day, Eliquis 1 Tablet (of 5 mg) Oral b.i.d., Furosemide 1 (20 mg) Tablet Oral daily, Gabapentin 2 Capsule (of 300 mg) Oral at bedtime, Levothyroxine Sodium 1 Tablet (of 50 mcg) Oral daily, Lipitor 1 (20 mg) Tablet Oral daily, LORazepam 1 Tablet (of 0.5 mg) Oral daily, Melatonin 1 (3 mg) Tablet Oral at bedtime, metFORMIN HCl 1 (500 mg) Tablet Oral daily, Mirtazapine 1 Tablet (of 15 mg) Oral at bedtime, Omeprazole 1 Tablet (of 20 mg) Tablet, enteric coated Oral b.i.d., predniSONE 1 Tablet (of 2.5 mg) Oral every am Allergies: No Known Allergies. Vital Signs: Performed on Jun 21, 2020 13:25 Height - 69.00 in Weight - 196.8 lbs (LOW) BSA - 2.05 sq.m BMI - 29.06 Temperature - 97.7 F (LOW) Pulse - 74 /min Respiration - 16 /min BP - 136/72 mm(hg) O2 Sat - 97 % Pain - 0 Physical Examination: Constitutional - He looks pretty good generally, Eyes - Sclerae nonicteric. Conjunctivae clear, ENMT - No lesions noted in the oral cavity, Hematologic/Lymphatic - No cervical, clavicular, or axillary adenopathy, Respiratory - Lungs are clear with good air movement bilaterally, Cardiovascular - Heart rhythm is regular. There is no murmur, gallop, or rub noted, Abdomen - Soft. Liver and spleen are not enlarged. There is no abdominal mass noted and there is no obvious ascites. There is no inguinal adenopathy noted, Extremities - There is mild swelling of the right leg, which is chronic. There is otherwise no edema, Neurologic - There are no focal neurologic deficits noted. Lab/Imaging: Test performed on Jun 21, 2020 12:10 LDH (Total) 154 U/L Sodium 142 mmol/L Potassium 3.8 mmol/L Chloride 102 mmol/L CO2 30 mmol/L Anion Gap 13.8 BUN 15 mg/dL Creatinine 1.1 mg/dL Cr Clearance (Est) 87.92 mL/min eGFR 67.8 mL/min Glucose 121 mg/dL Osmolality - Calculated 296 mOsm/kg Calcium 8.8 mg/dL Protein, Total 7.3 g/dL Albumin 4.4 g/dL Globulin 2.9 g/dL Bilirubin, Total 0.3 mg/dL ALT (SGPT) 18 U/L AST (SGOT) 16 U/L Alkaline Phosphatase 119 IU/L WBC 7.7 10 3/uL RBC 3.80 10 6/uL HGB 11.8 g/dL HCT 36.6 % MCV 96.3 fL MCH 31.1 pg MCHC 32.2 g/dL RDW 13.2 % Platelet Count 241 10 3/cmm MPV 10.3 fL Neutrophils 5.02 10 3/uL Lymphocytes 1.7 10 3/uL Monocytes 0.6 10 3/uL Eosinophils 0.3 10 3/uL Basophils 0.0 10 3/uL Neutrophil % 65.4 % Lymphocyte % 22.2 % Monocyte % 8.2 % Eosinophil % 3.4 % Basophils % 0.5 % NRBC % 0 % Impression: 1. Patient with melanoma involving the right calcaneal region, stage IIIA (pT2a, pN2a, M0) at initial diagnosis in 2015. 2. His intial treatment included biopsy in May 2016 followed by wide excision with skin graft and with sentinel right inguinal lymph node biopsy on 07/03/2016 followed by right inguinal lymph node dissection on 07/24/2016. 3. He was given adjuvant therapy with ipililumab 10 mg/kg for 4 cycles, completed in October 2016. He experienced multiple toxicities with the treatment. 4. In November 2018 he had biopsy-proven recurrence in the right inguinal lymph node. 5. On 01/06/2019 he began treatment with nivolumab. His other medical illnesses include: 6. Hypertension. 7. Hyperlipidemia. 8. Type II diabetes. 9. GERD. 10. Chronic urticaria. Following his initial infusion of nivolumab he required admission to the hospital with pneumonia/hypoxia. His clinical course was complicated by atrial fibrillation/RVR, requiring cardioversion. His further treatment with nivolumab was delayed. He was then admitted admitted to the hospital again with respiratory distress. By echocardiogram he had bilateral pleural effusions and loculated pericardial effusion. The pericardial effusion was noted to contain particulate material, suspicious for metastatic disease. He underwent thoracentesis. There were no malignant cells seen in the pleural fluid. At his follow-up visit on 01/30/2019 he had very poor performance status, and he was still moderately anemic. His serum iron studies were consistent with iron deficiency. He continued antibiotic therapy for the pneumonia, and at that point I had him start empiric steroid therapy with prednisone. He began parenteral iron replacement with Injectafer on 02/12/2019. His restaging PET/CT on showed no evidence for active malignancy. He completed his second infusion of Injectafer on 02/19/2019, and on 03/04/2019 he continued with cycle 2 of nivolumab at the 2-week dosing schedule. He tolerated it well, and he then continued nivolumab at 240 mg IV every 2 weeks. During treatment he had to start thyroid replacement for hypothyroidism. He then continued to have some ongoing fatigue, but he otherwised tolerate treatment well. As of 02/16/2020 he had received cycle 27 of nivolumab at the 240 mg dosage, which completed a full year of treatment. His restaging CT scans on 03/21/2020 showed no evidence of metastatic disease in the chest, abdomen, or pelvis. He is now being followed on observation/expectant management. He is still having some fatigue, but overall, though, he appears to be doing well clinically. Thus far there has been no evidence for any further recurrence of his melanoma. At this point he remains on a very low dosage of prednisone. Plan: He continues on observation/expectant management. He will be scheduled for a follow-up visit in 6 months. In the meantime, he will reduce prednisone to 2.5 mg every day for the next 2 weeks and then stop it. Signed By: Robel Sterling M.D. <<Signature on File>>
== END 2020-06-30 23:59 | disposition home or self-care (01) ==
LOC: ONCMED 06:25
PROVIDERS: PCP Internal Medicine; Visit Provider Internal Medicine Medical Oncology
DX: Z08 Encounter for follow-up examination after completed treatment for malignant neoplasm (principal); Z85.820 Personal history of malignant melanoma of skin; R53.83 Other fatigue; I10 Essential (primary) hypertension; E78.5 Hyperlipidemia, unspecified; E11.9 Type 2 diabetes mellitus without complications; K21.9 Gastro-esophageal reflux disease without esophagitis; Z92.22 Personal history of monoclonal drug therapy; Z79.52 Long term (current) use of systemic steroids
CPT/HCPCS: 36591; 80053; 83615; 85025; G0463

== ENCOUNTER 2020-07-22 09:01 | Outpatient (RCR) | payer MEDICARE, SELFPAY | END 2020-07-31 23:59 | disposition home or self-care (01) | LOC: ONCMED 09:01 | PROVIDERS: PCP Internal Medicine; Visit Provider Internal Medicine Medical Oncology | DX: Z45.2 Encounter for adjustment and management of vascular access device (principal) | CPT/HCPCS: 96523 ==

== ENCOUNTER 2020-08-19 07:04 | Outpatient (RCR) | payer MEDICARE, SELFPAY | END 2020-08-28 23:59 | disposition home or self-care (01) | LOC: ONCMED 07:04 | PROVIDERS: PCP Internal Medicine; Visit Provider Internal Medicine Medical Oncology | DX: Z45.2 Encounter for adjustment and management of vascular access device (principal) | CPT/HCPCS: 96523 ==

== ENCOUNTER 2020-09-16 06:02 | Outpatient (CLI) | payer MEDICARE, SELFPAY | END 2020-09-16 06:03 | disposition home or self-care (01) | LOC: ONCMED 06:05 | PROVIDERS: PCP Internal Medicine; Visit Provider Internal Medicine Medical Oncology | DX: Z45.2 Encounter for adjustment and management of vascular access device (principal) | CPT/HCPCS: 96523 ==

== ENCOUNTER 2020-10-21 09:04 | Outpatient (CLI) | payer MEDICARE, SELFPAY | END 2020-10-21 09:05 | disposition home or self-care (01) | LOC: ONCMED 09:06 | PROVIDERS: PCP Internal Medicine; Visit Provider Internal Medicine Medical Oncology | DX: Z45.2 Encounter for adjustment and management of vascular access device (principal) | CPT/HCPCS: 96523 ==

== ENCOUNTER 2020-11-18 09:00 | Outpatient (CLI) | payer MEDICARE, SELFPAY | END 2020-11-18 09:01 | disposition home or self-care (01) | LOC: ONCMED 09:01 | PROVIDERS: PCP Internal Medicine; Visit Provider Nurse Practitioner | DX: Z45.2 Encounter for adjustment and management of vascular access device (principal) | CPT/HCPCS: 96523 ==

== ENCOUNTER 2020-12-13 10:57 | Outpatient (CLI) | payer MEDICARE, SELFPAY ==
[2020-12-13 11:28] LABS: Basophils % 0.4 %; Eosinophils # 0.3 10^3/uL (0.0-0.8); Eosinophils % 7.4 %; Hematocrit 30.9 % (42.0-52.0); Hemoglobin 10.1 g/dL (11.7-16.6); Lymphocytes # 1.7 10^3/uL (0.8-4.8); Mean Corpuscular HGB Conc 32.7 g/dL (30.0-36.0); Mean Corpuscular Hemoglobin 29.2 pg (28.0-34.0); Mean Corpuscular Volume 89.3 fL (80-94); Mean Platelet Volume 9.6 fL (7.4-10.4); Monocytes # 0.4 10^3/uL (0.2-0.9); Monocytes % 8.5 %; Neutrophils # 2.07 10^3/uL (1.8-7.7); Neutrophils % 46.5 %; Nucleated Red Blood Cells % 0 %; Platelet Count 281 10^3/cmm (130-400); Red Blood Count 3.46 10^6/uL (4.1-5.3); Red Cell Distribution Width 12.5 % (12.1-15.1); White Blood Count 4.5 10^3/uL (4.0-10.0)
[2020-12-13 12:04] LABS: Slide Review Slide Review Perform
[2020-12-13 12:05] LABS: Alanine Aminotransferase 11 U/L (0-41); Albumin Level 3.9 g/dL (3.5-5.2); Alkaline Phosphatase 147 IU/L (40-130); Aspartate Amino Transferase 21 U/L (0-40); Blood Urea Nitrogen 21 mg/dL (8-23); Calcium 8.5 mg/dL (8.5-10.5); Carbon Dioxide 24 mmol/L (22-29); Chloride 101 mmol/L (98-107); Globulin 3.2 g/dL (1.3-4.6); Glomerular Filtration Rate 51.2 mL/min (90-130); Glucose 94 mg/dL (65-115); Osmolality Calculated 285 mOsm/kg (285-295); Sodium 136 mmol/L (136-145); Thyroid Stimulating Hormone 2.06 uIU/mL (0.27-4.20); Total Bilirubin 0.4 mg/dL (0.15-1.2); Total Protein 7.1 g/dL (6.6-8.7)
--- NOTE | 2020-12-25 22:03 | ONC FU_ITS ---
[facility] Patient Note Patient: Alfonso Grant Unit #: [id number]: 1955 Dictated By: Martínez BookerDate of Visit: Dec 13, 2020 Onc MED Follow-Up/Prog Note Chief Complaint: Melanoma. History of Present Illness: Mr Grant is a 65 year-old man with melanoma of the right calcaneal region, stage IIIA (pT2a, pN2a, M0) at initial diagnosis in 2015, but with subsequent right inguinal lymph node recurrence. He had seen Dr. Ortiz in May 2016 after he had become aware of a change in a mole on his right heel. The initial biopsy showed melanoma with a Breslow depth of 1.6 mm with no ulcerations and no mitoses identified. He was referred to Dr. Messer in [place]. On 07/03/2016 he underwent wide excision with skin graft and with sentinel right inguinal lymph node biopsy. Pathology showed acral lentiginous melanoma measuring 1.4 x 1.4 cm. The residual tumor had a Breslow depth of 0.8 mm. There was no ulceration noted and there were 0 mitoses/square millimeter. A total of 3 sentinel lymph nodes were excised, 2 of which were positive for metastatic melanoma on SOX-10 and MART-1 stains. The largest size of metastatic focus measured 0.4 mm. MRI of the abdomen on 07/13/2016 showed no lymphadenopathy or other evidence of metastatic disease. PET/CT at that time also showed no evidence for metabolically active malignancy. On 07/24/2016 he underwent right inguinal lymph node dissection. There was no additional metastatic lymph node involvement. He had medical oncology consultation with Dr. Briseno, and he was recommended to consider adjuvant therapy with ipililumab. Dr Sterling had seen him for a second opinion evaluation on 09/10/2016. Given his high risk for recurrence, Dr Sterling also recommended the adjuvant therapy. He then proceeded with the high-dose ipililumab regimen, completing 4 cycles of treatment from 09/19/2016 through 11/20/2016. He experienced multiple toxicities with the treatment. During subsequent follow-up he had done well until October 2018 when his surveillance PET/CT showed a small focus of uptake in the subcutaneous tissue of the upper medial right thigh, suspicious for neoplastic involvement. There were no other sites of abnormal uptake on that study. He then underwent surgical resection of the involved area on 12/15/2018, pathology confirming metastatic melanoma. A BRAF mutation was not detected. He began treatment with nivolumab on 01/06/2019. Several days following his initial infusion he was admitted to the hospital with pneumonia/hypoxia. He developed atrial fibrillation/RVR, requiring cardioversion. He was discharged on 01/19/2019. His further treatment with nivolumab was delayed. On 01/26/2019 he was admitted to [facility] after presenting to the emergency room with respiratory distress. His chest x-ray showed development of moderate left pleural effusion with probable atelectasis or pneumonia of the left lower lobe. His echocardiogram showed loculated pericardial effusion with large bilateral pleural effusions. The pericardial effusion was noted to be more prominent towards the apex and it contained particulate material, suspicious for metastatic disease to the pericardium. He underwent thoracentesis. The pleural fluid studies included normal LDH and a negative Gram stain. The morphologic assessment showed benign appearing mesothelial cells in a background of mild mixed inflammation and blood. There was no atypia or malignancy seen. He was discharged home on 01/28/2019 on continued antibiotic coverage with Cefdnir 300 mg twice a day. His other medical illnesses include hypertension, hyperlipidemia, type II diabetes, and GERD. He also has a history of chronic urticaria. He has a very minimal smoking history, and he had quit smoking in 1980. He was seen her for a follow-up visit on 01/30/2019. He was still very weak, and he had very marginal performance status. He was still significantly anemic with his hemoglobin low at 9.2 g. He had low transferrin saturation 9.8%, consistent with iron deficiency. At that point he continued antibiotic therapy for the pneumonia. Dr Sterling opted to have him start empiric steroid therapy with prednisone, and he also began diuretic therapy with furosemide, as he had significant fluid retention. He returned on 02/12/2019 for parenteral iron replacement with Injectafer. Restaging PET/CT on 02/16/2018 showed no abnormal pulmonary parenchymal uptake. A small left pleural effusion showed no suspicious activity. There was no right pleural effusion noted and no pericardial effusion noted. There was no abnormal lymph node uptake, and no evidence for metabolically active malignancy. Dr Sterling had seen him for a follow-up visit on 02/19/2019. At that point he was feeling much better. He received his second infusion of Injectafer, and with the PET/CT showing no evidence of active malignancy, we opted to continue his treatment with nivolumab. On 03/04/2019 he returned for cycle 2 of nivolumab, administered at the 2-week dosing schedule. He tolerated it well, and he was then able to continue treatment at 2- week intervals. As of 02/16/2020 he received his 27th cycle of nivolumab at the 240 mg dosage, which completed a year of treatment. Restaging CT scans on 03/21/2020 showed no evidence for metastatic disease in the chest, abdomen, or pelvis. With those findings, he was followed on observation/expectant management. He was seen in May [address] Sterling. He was doing well at that time. Mr. Grant is here today for his 6-month follow-up. He is accompanied by his . Overall he seems to have had performance status decline and significant weight loss since his last visit here. He states that he has been having occasional nausea and queasiness. He denies any headaches or vision changes. He denies any fever. He has not noticed any adenopathy. He states that he has not been able to write correctly as his hands are numb bilaterally. He states he has had trouble thinking and remembering which is new for him. He states that he thinks he may have had a couple tick bites in the last couple of weeks but did not notice any rash or anything unusual with the bites. The tics did not remain very long. He again has had no fever or night sweats. He denies any chills. His performance status is that he is weak overall. He denies any palpitations or chest pain. He states that he is due for chest x-ray and follow-up with Dr. Messer's office within the next week. He states this is just his 6-month follow-up. He denies any diarrhea or constipation. It is noted that his weight charted on 06/19/2020 was 198.6. Today is 153.8. He states he had been watching his diet some but not this dramatic. His ECOG is 2. Past Medical History: Chronic urticaria Diabetes type II Gastroesophageal reflux disease Hyperlipidemia Hypertension Melanoma Past Surgical History: Thoracentesis Right inguinal lymph node biopsy/excision in 2019 Right inguinal lymph node dissection in 2017 Wide excision of melanoma with skin graft and sentinel right inguinal lymph node biopsy in 2017 Biopsy of skin lesion right heel in 2015 Arthroscopic right knee surgery in 2011 Left shoulder surgery in 2001 Right shoulder surgery in 1999 Tonsillectomy in 1962 - with adenoidectomy Allergies: No Known Allergies. Medications: Acetaminophen Extra Strength 1 - 2 Tablet (of 500 mg) Oral PRN Amiodarone HCl 1 Tablet (of 200 mg) Oral daily Cetirizine HCl 1 Tablet (of 10 mg) Oral four times a day Eliquis 1 Tablet (of 5 mg) Oral b.i.d. Furosemide 1 (20 mg) Tablet Oral daily Gabapentin 3 Capsule (of 300 mg) Oral at bedtime Levothyroxine Sodium 1 Tablet (of 25 mcg) Oral daily Lipitor 1 (20 mg) Tablet Oral daily Melatonin 1 (10 mg) Tablet Oral at bedtime metFORMIN HCl 1 (500 mg) Tablet Oral daily Mirtazapine 1 Tablet (of 30 mg) Oral at bedtime Omeprazole 1 Tablet (of 20 mg) Tablet, enteric coated Oral b.i.d. Family History: Mr. Grant's father is : diabetes, and heart disease, and hypertension. His father has heart disease and diabetes, and he has been treated for colon cancer. He is still living at age 86. Mother has diabetes and dementia and is still living at age 86. His paternal grandfather also had colon cancer, and his paternal grandmother had breast cancer. A great grandfather on his father's side of melanoma. 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 Mr. Grant quit smoking 36 years ago but had smoked 0.5 packs/day for 3 years. He has a history of smoking 1/2 pack of cigarettes daily for 2-3 years. He quit smoking in 1980. He chews 1 can of chewing tobacco per week . He currently drinks 2 cans of beer daily. Review Of Symptoms: <See Above> Vital Signs: Performed on Dec 13, 2020 13:13 Height - 69.00 in Weight - 153.8 lbs (LOW) BSA - 1.85 sq.m BMI - 22.71 Temperature - 98.7 F Pulse - 66 /min Respiration - 18 /min BP - 89/55 mm(hg) (LOW) O2 Sat - 97 % Pain - 0 Fatigue - 4,2 - Ambulatory/capable of all self-care, unable to perform any work activities. Up and about more than 50% of waking hours. (ECOG) Physical Examination: Constitutional Alert, oriented, no acute distress. Skin pale pink, warm and dry. Head Normocephalic; atraumatic. Eyes Conjunctivae and sclerae are clear and without icterus. Pupils are reactive and equal. Neck Supple without masses or thyromegaly. No jugular venous distension. Hematologic/Lymphatic No petechiae or purpura. No tender or palpable lymph nodes in the cervical or supraclavicular areas. Respiratory Lungs are clear to auscultation without rhonchi or wheezing. Cardiovascular Regular rate and rhythm of heart without murmurs,clicks, gallops or rubs. Abdomen Non-tender, non-distended, no masses, ascites. No guarding or rebound tenderness. No pulsatile masses. Back/Spine Non-tender to palpation. Extremities No visible deformities, no cyanosis, clubbing or edema. Musculoskeletal No tenderness or swelling, normal range of motion without obvious weakness. Integumentary No rashes or lesions. Neurologic No sensory or motor deficits, normal cerebellar function, normal gait. Psychiatric Alert and oriented times three. Coherent speech. Verbalizes understanding of our discussions today. Laboratory:Test performed on Dec 13, 2020 11:15 Sodium 136 mmol/L TSH 2.06 uIU/mL Potassium 4.0 mmol/L Chloride 101 mmol/L CO2 24 mmol/L Anion Gap 15.0 BUN 21 mg/dL Creatinine 1.4 mg/dL Cr Clearance (Est) 53.2900 mL/min eGFR 51.2 mL/min Glucose 94 mg/dL Osmolality - Calculated 285 mOsm/kg Calcium 8.5 mg/dL Protein, Total 7.1 g/dL Albumin 3.9 g/dL Globulin 3.2 g/dL Bilirubin, Total 0.4 mg/dL ALT (SGPT) 11 U/L AST (SGOT) 21 U/L Alkaline Phosphatase 147 IU/L WBC 4.5 10 3/uL RBC 3.46 10 6/uL HGB 10.1 g/dL HCT 30.9 % MCV 89.3 fL MCH 29.2 pg MCHC 32.7 g/dL RDW 12.5 % Platelet Count 281 10 3/cmm MPV 9.6 fL Neutrophils 2.07 10 3/uL Lymphocytes 1.7 10 3/uL Monocytes 0.4 10 3/uL Eosinophils 0.3 10 3/uL Basophils 0.0 10 3/uL Neutrophil % 46.5 % Lymphocyte % 37.0 % Monocyte % 8.5 % Eosinophil % 7.4 % Basophils % 0.4 % NRBC % 0 % CBC Slide Review Slide Review Perform Test performed on Jun 21, 2020 12:10 LDH (Total) 154 U/L Impression: 1. Patient with melanoma involving the right calcaneal region, stage IIIA (pT2a, pN2a, M0) at initial diagnosis in 2015. 2. His intial treatment included biopsy in May 2016 followed by wide excision with skin graft and with sentinel right inguinal lymph node biopsy on 07/03/2016 followed by right inguinal lymph node dissection on 07/24/2016. 3. He was given adjuvant therapy with ipililumab 10 mg/kg for 4 cycles, completed in October 2016. He experienced multiple toxicities with the treatment. 4. In November 2018 he had biopsy-proven recurrence in the right inguinal lymph node. 5. On 01/06/2019 he began treatment with nivolumab. His other medical illnesses include: 6. Hypertension. 7. Hyperlipidemia. 8. Type II diabetes. 9. GERD. 10. Chronic urticaria. Following his initial infusion of nivolumab he required admission to the hospital with pneumonia/hypoxia. His clinical course was complicated by atrial fibrillation/RVR, requiring cardioversion. His further treatment with nivolumab was delayed. He was then admitted admitted to the hospital again with respiratory distress. By echocardiogram he had bilateral pleural effusions and loculated pericardial effusion. The pericardial effusion was noted to contain particulate material, suspicious for metastatic disease. He underwent thoracentesis. There were no malignant cells seen in the pleural fluid. At his follow-up visit on 01/30/2019 he had very poor performance status, and he was still moderately anemic. His serum iron studies were consistent with iron deficiency. He continued antibiotic therapy for the pneumonia, and at that point I had him start empiric steroid therapy with prednisone. He began parenteral iron replacement with Injectafer on 02/12/2019. His restaging PET/CT on showed no evidence for active malignancy. He completed his second infusion of Injectafer on 02/19/2019, and on 03/04/2019 he continued with cycle 2 of nivolumab at the 2-week dosing schedule. He tolerated it well, and he then continued nivolumab at 240 mg IV every 2 weeks. During treatment he had to start thyroid replacement for hypothyroidism. He then continued to have some ongoing fatigue, but he otherwised tolerate treatment well. As of 02/16/2020 he had received cycle 27 of nivolumab at the 240 mg dosage, which completed a full year of treatment. His restaging CT scans on 03/21/2020 showed no evidence of metastatic disease in the chest, abdomen, or pelvis. He is now being followed on observation/expectant management. He is still having some fatigue, but overall, though, he appears to be doing well clinically. Thus far there has been no evidence for any further recurrence of his melanoma. At this point he remains on a very low dosage of prednisone. Plan/Problems Addressed at this Visit: Melanoma in the right calcaneal region, stage IIIa initially diagnosed in 2015. He has completed adjuvant therapy with ipilimumab for 4 cycles completed on October 2016. In November 2018 had biopsy proven recurrence in the right inguinal lymph node. On January 06, 2019 he began treatment with nivolumab. With the initial infusion of nivolumab he required admission to the hospital with pneumonia/hypoxia. He also had his clinical course complicated by atrial fib with rapid ventricular response requiring cardioversion. He completed cycle 27 nivolumab on February 16, 2020. He presents today for 6-month follow-up. He has had significant weight loss, decreased performance status, nausea and trouble thinking and remembering . He states he is having a difficult time writing as his hands are numb bilaterally. A. I requested MRI of the brain with and without contrast for his symptoms of nausea, inability to write as per his normal status, forgetfulness and trouble thinking . B. I have also requested a PET/CT restaging given that he has had recurrence of his melanoma in the right inguinal lymph node in November 2018. He did complete 27 cycles of nivolumab on February 16, 2020. C. Labs from today reveal a white count of 4.5, hemoglobin is 10.1 compared to 11.8 in June 21, 2020. His platelet count is 281,000 his ANC is 2070. His ANC in May 2020 was 5020. Potassium is normal at 4.0 random glucose 94 creatinine 1.4 LFTs are normal. TSH is 2.06. His alk phos is 147 ranges 40-1 30. His alk phos was 142 in March 2020. His alk phos on June 21, 2020 was noted to be 119. D. He has had a significant drop in his weight from 196.8 on 06/21/2020 to document of 153.8 today. Unintentional weight loss. E. It is noted that he states he has had a couple of tick bites within the last 2 weeks . Although none of them seem to be symptomatic as he had no rash or abnormal signs with a tick bite. He states that they were not attached for very long . F. Mr. Grant last PET CT imaging per our records was February 16, 2019, he did have CT of the chest abdomen pelvis with contrast on March 21, 2020 at which time there was no evidence of metastatic disease in the chest abdomen or pelvis. His last MRI of the head with contrast was June 10, 2019. G. He notes that his Synthroid has been decreased from 50 mics to 25 mcg per his PCP in the last couple of weeks. H. We will plan to see him back after his imaging is obtained. I. He was offered supportive care with hydration, antiemetics in the interim. He states he is off the prednisone completely at this point. J. Mr. Grant was instructed to contact us in interim should questions or problems arise. Signed By: Martínez Booker-, [facility] Robel Sterling MD <<Signature on File>>
== END 2020-12-13 10:58 | disposition home or self-care (01) ==
LOC: ONCMED 10:59
PROVIDERS: PCP Internal Medicine; Visit Provider Nurse Practitioner
DX: C40.31 Malignant neoplasm of short bones of right lower limb (principal); C77.4 Secondary and unspecified malignant neoplasm of inguinal and lower limb lymph nodes; I10 Essential (primary) hypertension; E78.5 Hyperlipidemia, unspecified; E11.9 Type 2 diabetes mellitus without complications; K21.9 Gastro-esophageal reflux disease without esophagitis; L50.8 Other urticaria; Z79.899 Other long term (current) drug therapy; Z92.21 Personal history of antineoplastic chemotherapy
CPT/HCPCS: 36591; 80053; 84443; 85025; 99214

== ENCOUNTER 2020-12-15 07:53 | Outpatient (CLI) | payer MEDICARE, SELFPAY ==
--- NOTE | 2020-12-15 07:59 | MR_ITS ---
WS: [id number] MRI HEAD WITH CONTRAST TECHNIQUE: Sagittal T1, T2 axial, T2 axial FLAIR, axial susceptibility weighted imaging, axial diffus ion weighted images, and coronal T2 images were obtained. Pre and post-T1 axial and post T1 coronal i mages. ADC and FSPGR images. CLINICAL INFORMATION: MELANOMA, WEIGHT LOSS, NAUSEA COMPARISON: MRI June 10, 2019 FINDINGS: No evidence of restricted diffusion to suggest acute ischemia. Ventricular system and basilar cistern s are patent. Mild small vessel changes. Moderate parenchymal volume loss. Normal posterior fossa. No rmal vascular flow voids at the skull base. No extra-axial fluid collections. No evidence of mass or mass effect. Incidental partially empty sella. No hemosiderin on susceptibly weighted images. Normal optic chiasm and pituitary infundibulum. Normal cavernous sinuses and Meckel's cave. No evidence of enhancing intracranial metastatic disease. No hydrocephalus. Paranasal sinuses and mas toid air cells are well aerated. Small retention cyst right maxillary sinus measuring 13 mm. MR/MR head wo/w con [id number] IMPRESSION: 1. No evidence of restricted diffusion to suggest acute ischemia. 2. No evidence of enhancing intracranial metastatic disease. 3. Mild small vessel changes. Moderate parenchymal volume loss. 4. No hydrocephalus. 5. Retention cyst right maxillary sinus. 6. No significant changes since June 10, 2019
== END 2020-12-15 07:54 | disposition home or self-care (01) ==
LOC: RADSHAW 07:55
PROVIDERS: PCP Internal Medicine; Visit Provider Nurse Practitioner
DX: C43.71 Malignant melanoma of right lower limb, including hip (principal); R63.4 Abnormal weight loss; R11.0 Nausea; M27.40 Unspecified cyst of jaw
CPT/HCPCS: 70553; A9579

== ENCOUNTER 2021-01-20 09:55 | Outpatient (CLI) | payer MEDICARE, SELFPAY | END 2021-01-20 09:56 | disposition home or self-care (01) | PROVIDERS: PCP Internal Medicine; Visit Provider Internal Medicine Medical Oncology | DX: Z45.2 Encounter for adjustment and management of vascular access device (principal) | CPT/HCPCS: 96523 ==

== ENCOUNTER 2021-02-07 09:26 | Outpatient (CLI) | payer MEDICARE, SELFPAY ==
[2021-02-07] MEDS: sodium chloride 0.9% 1,000 ML 999 ML IV (10:07)
[2021-02-07] MEDS: ondansetron 2 mg/ML SDV 2 mL 8 MG IV (10:07)
== END 2021-02-07 09:27 | disposition home or self-care (01) ==
LOC: ONCMED 09:30
PROVIDERS: PCP Internal Medicine; Visit Provider Internal Medicine Medical Oncology
DX: C40.31 Malignant neoplasm of short bones of right lower limb (principal); C77.4 Secondary and unspecified malignant neoplasm of inguinal and lower limb lymph nodes; Z79.899 Other long term (current) drug therapy
CPT/HCPCS: 96361; 96365; J1100; J2405; J7030

== ENCOUNTER 2021-02-08 15:04 | Outpatient (CLI) | payer MEDICARE, SELFPAY ==
--- NOTE | 2021-02-08 15:15 | US_ITS ---
WS: [id number] INDICATION: Swelling post lymph node surgery TECHNIQUE: Ultrasound left groin FINDINGS: Ultrasound left groin. Fluid collection in the area of palpable concern above the incision. Associated internal debris. Fluid collection measures 4.8 x 3.8 x 4.5 CM . Differential consideratio ns include hematoma, abscess, or complex seroma. Recommend correlation for infection. US/US soft tissue/extremity [id number] IMPRESSION: Complex fluid collection in the area of palpable concern measuring 4.8 x 3.8 x 4.5 cm consistent with hematoma, abscess, or complex seroma. Recomm end correlation with infection.
== END 2021-02-08 15:05 | disposition home or self-care (01) ==
LOC: RAD 15:10
PROVIDERS: PCP Internal Medicine; Visit Provider Internal Medicine Medical Oncology
DX: R10.32 Left lower quadrant pain (principal)
CPT/HCPCS: 76882

== ENCOUNTER 2021-02-20 09:54 | Outpatient (CLI) | payer MEDICARE, SELFPAY ==
--- NOTE | 2021-02-20 10:08 | US_ITS ---
WS: [id number] INDICATION: Left groin mass/fluid collection TECHNIQUE: Ultrasound-guided aspiration/biopsy left groin lesion FINDINGS: The procedure including risks benefits and complications were discussed with the patient wh o agreed to proceed. Patient was prepped and draped in usual sterile fashion. Timeout was performed. After 1% lidocaine, using ultrasound guidance, approximately 3 cc of bloody fluid was aspirated and s ent for cultures. No more fluid could be aspirated. Subsequently 3 cores were obtained with an 18-gau ge biopsy needle and 2 additional cores with a 14-gauge biopsy needle. Scant tissue was obtained. Fin dings are suspicious for postoperative hematoma considering recent surgery. US/US softtise fl dr sierra [id number] IMPRESSION: Ultrasound-guided aspiration/biopsy left groin. No immediate applic ations.
== END 2021-02-20 09:55 | disposition home or self-care (01) ==
PROVIDERS: PCP Internal Medicine; Visit Provider Internal Medicine Medical Oncology
DX: R19.04 Left lower quadrant abdominal swelling, mass and lump (principal)
CPT/HCPCS: 10030; 20206; 76942; 88173; 88305; 88307

== ENCOUNTER 2021-03-17 08:26 | Outpatient (CLI) | payer MEDICARE, SELFPAY | END 2021-03-17 08:27 | disposition home or self-care (01) | LOC: ONCMED 08:27 | PROVIDERS: PCP Internal Medicine; Visit Provider Internal Medicine Medical Oncology | DX: Z45.2 Encounter for adjustment and management of vascular access device (principal) | CPT/HCPCS: 96523 ==

== ENCOUNTER 2021-03-24 06:48 | Outpatient (CLI) | payer MEDICARE, SELFPAY ==
[2021-03-24 08:58] LABS: Basophils % 0.6 %; Eosinophils # 0.4 10^3/uL (0.0-0.8); Eosinophils % 8.1 %; Hemoglobin 8.7 g/dL (11.7-16.6); Lymphocytes # 1.4 10^3/uL (0.8-4.8); Mean Corpuscular HGB Conc 32.2 g/dL (30.0-36.0); Mean Corpuscular Hemoglobin 29.5 pg (28.0-34.0); Mean Corpuscular Volume 91.5 fl (80-94); Mean Platelet Volume 9.3 fL (7.4-10.4); Monocytes # 0.3 10^3/uL (0.2-0.9); Monocytes % 6.9 %; Neutrophils % 54.2 %; Nucleated Red Blood Cells % 0 %; Platelet Count 197 10^3/cmm (130-400); Red Blood Count 2.95 10^6/uL (4.1-5.3); Red Cell Distribution Width 13.7 % (12.1-15.1); White Blood Count 4.8 10^3/uL (4.0-10.0)
[2021-03-24 09:33] LABS: Alanine Aminotransferase 8 U/L (0-41); Albumin Level 3.8 g/dL (3.5-5.2); Alkaline Phosphatase 160 IU/L (40-130); Anion Gap 14.5 (5-19); Aspartate Amino Transferase 17 U/L (0-40); Blood Urea Nitrogen 23 mg/dL (8-23); Calcium 8.6 mg/dL (8.5-10.5); Carbon Dioxide 25 mmol/L (22-29); Chloride 102 mmol/L (98-107); Globulin 3.4 g/dL (1.3-4.6); Glomerular Filtration Rate 40.9 mL/min (90-130); Glucose 84 mg/dL (65-115); Osmolality Calculated 287 mOsm/kg (285-295); Potassium 4.5 mmol/L (3.5-5.1); Sodium 137 mmol/L (136-145); Total Bilirubin 0.3 mg/dL (0.15-1.2); Total Protein 7.2 g/dL (6.6-8.7)
[2021-03-24 10:45] LABS: Reticulocyte % 1.2 % (0.5-2.0)
[2021-03-24 11:17] LABS: Iron 40 ug/dL (59-158); Lactate Dehydrogenase 158 U/L (135-225); Percent Saturation 21.5 % (20-50); Thyroid Stimulating Hormone 6.38 uIU/mL (0.27-4.20); Total Iron Binding Capacity 186 mcg/dl; Unsaturated Iron Binding 146 ug/dL (112-347); Vitamin B12 483 pg/mL (232-1245)
--- NOTE | 2021-03-25 15:28 | ONC FU_ITS ---
Dr. Sterling Patient Follow-Up Note Patient: Alfonso Grant Unit #: [id number]: 1955 Dicatated By: Robel Sterling M.D.Date of Visit:Mar 24, 2021 Onc Med Follow-up/Prog Note Chief Complaint: Melanoma. History of Present Illness: This is a 65 year-old man with melanoma of the right calcaneal region, stage IIIA (pT2a, pN2a, M0) at initial diagnosis in 2015, but with subsequent right inguinal lymph node recurrence. He had seen Dr. Ortiz in May 2016 after he had become aware of a change in a mole on his right heel. The initial biopsy showed melanoma with a Breslow depth of 1.6 mm with no ulcerations and no mitoses identified. He was referred to Dr. Messer in [place]. On 07/03/2016 he underwent wide excision with skin graft and with sentinel right inguinal lymph node biopsy. Pathology showed acral lentiginous melanoma measuring 1.4 x 1.4 cm. The residual tumor had a Breslow depth of 0.8 mm. There was no ulceration noted and there were 0 mitoses/square millimeter. A total of 3 sentinel lymph nodes were excised, 2 of which were positive for metastatic melanoma on SOX-10 and MART-1 stains. The largest size of metastatic focus measured 0.4 mm. MRI of the abdomen on 07/13/2016 showed no lymphadenopathy or other evidence of metastatic disease. PET/CT at that time also showed no evidence for metabolically active malignancy. On 07/24/2016 he underwent right inguinal lymph node dissection. There was no additional metastatic lymph node involvement. He had medical oncology consultation with Dr. Briseno, and he was recommended to consider adjuvant therapy with ipililumab. I had seen him for a second opinion evaluation on 09/10/2016. Given his high risk for recurrence, I also recommended the adjuvant therapy. He then proceeded with the high-dose ipililumab regimen, completing 4 cycles of treatment from 09/19/2016 through 11/20/2016. He experienced multiple toxicities with the treatment. During subsequent follow-up he had done well until October 2018 when his surveillance PET/CT showed a small focus of uptake in the subcutaneous tissue of the upper medial right thigh, suspicious for neoplastic involvement. There were no other sites of abnormal uptake on that study. He then underwent surgical resection of the involved area on 12/15/2018, pathology confirming metastatic melanoma. A BRAF mutation was not detected. He began treatment with nivolumab on 01/06/2019. Several days following his initial infusion he was admitted to the hospital with pneumonia/hypoxia. He developed atrial fibrillation/RVR, requiring cardioversion. He was discharged on 01/19/2019. His further treatment with nivolumab was delayed. On 01/26/2019 he was admitted to [facility] after presenting to the emergency room with respiratory distress. His chest x-ray showed development of moderate left pleural effusion with probable atelectasis or pneumonia of the left lower lobe. His echocardiogram showed loculated pericardial effusion with large bilateral pleural effusions. The pericardial effusion was noted to be more prominent towards the apex and it contained particulate material, suspicious for metastatic disease to the pericardium. He underwent thoracentesis. The pleural fluid studies included normal LDH and a negative Gram stain. The morphologic assessment showed benign appearing mesothelial cells in a background of mild mixed inflammation and blood. There was no atypia or malignancy seen. He was discharged home on 01/28/2019 on continued antibiotic coverage with Cefdnir 300 mg twice a day. His other medical illnesses include hypertension, hyperlipidemia, type II diabetes, and GERD. He also has a history of chronic urticaria. He has a very minimal smoking history, and he had quit smoking in 1980. He was seen her for a follow-up visit on 01/30/2019. He was still very weak, and he had very marginal performance status. He was still significantly anemic with his hemoglobin low at 9.2 g. He had low transferrin saturation 9.8%, consistent with iron deficiency. At that point he continued antibiotic therapy for the pneumonia. I opted to have him start empiric steroid therapy with prednisone, and he also began diuretic therapy with furosemide, as he had significant fluid retention. He returned on 02/12/2019 for parenteral iron replacement with Injectafer. Restaging PET/CT on 02/16/2018 showed no abnormal pulmonary parenchymal uptake. A small left pleural effusion showed no suspicious activity. There was no right pleural effusion noted and no pericardial effusion noted. There was no abnormal lymph node uptake, and no evidence for metabolically active malignancy. I had seen him for a follow-up visit on 02/19/2019. At that point he was feeling much better. He received his second infusion of Injectafer, and with the PET/CT showing no evidence of active malignancy, we opted to continue his treatment with nivolumab. On 03/04/2019 he returned for cycle 2 of nivolumab, administered at the 2-week dosing schedule. He tolerated it well, and he was then able to continue treatment at 2- week intervals. As of 02/16/2020 he received his 27th cycle of nivolumab at the 240 mg dosage, which completed a year of treatment. Restaging CT scans on 03/21/2020 showed no evidence for metastatic disease in the chest, abdomen, or pelvis. With those findings, he was followed on observation/expectant management. Head MRI on 12/15/2020 showed no evidence of metastatic disease. A repeat PET/CT showed an FDG avid lymph node in the left groin. With that finding he was referred to Dr. Messer, and he underwent left inguinal lymph node biopsy on 02/20/2021. Pathology showed benign fragments of fibroadipose tissue with acute inflammation and necrotic elements. There was no malignancy identified. Subsequent to that procedure, he developed a fluid collection in the left groin consistent with seroma, for which she underwent drainage procedure under ultrasound. He also has been on antibiotic coverage with Bactrim. He is seen for a follow-up visit. He has not been feeling good. His energy is not very good and his activity has been very limited. ECOG score is 2. His appetite is okay. He has not had fever or night sweats. He has not had sore mouth or throat and he does not complain of cough, shortness of breath, or chest pain. He sometimes has nausea. Bowel and bladder function have been okay. He has been off balance for quite a while, and he has had several falls. Yesterday he fell again after he missed a step, and he has been having pain in his left shoulder and lower back. He says his knees hurt all the time. He does not complain of headache. He has no numbness/paresthesia or other focal neurologic symptoms. His says that he has been having problems with memory and sometimes he is not thinking right. Medications: Acetaminophen Extra Strength 1 - 2 Tablet (of 500 mg) Oral PRN, Amiodarone HCl 1 Tablet (of 200 mg) Oral daily, Cetirizine HCl 1 Tablet (of 10 mg) Oral four times a day, Eliquis 1 Tablet (of 5 mg) Oral b.i.d., Furosemide 1 (20 mg) Tablet Oral daily, Gabapentin 3 Capsule (of 300 mg) Oral at bedtime, Levothyroxine Sodium 1 Tablet (of 25 mcg) Oral daily, Lipitor 1 (20 mg) Tablet Oral daily, Melatonin 1 (10 mg) Tablet Oral at bedtime, metFORMIN HCl 1 (500 mg) Tablet Oral daily, Mirtazapine 1 Tablet (of 30 mg) Oral at bedtime, Omeprazole 1 Tablet (of 20 mg) Tablet, enteric coated Oral b.i.d. Allergies: No Known Allergies. Vital Signs: Performed on Mar 24, 2021 10:25 Height - 69.00 in Weight - 154.6 lbs (HIGH) BSA - 1.85 sq.m BMI - 22.83 Temperature - 97.8 F (LOW) Pulse - 63 /min Respiration - 18 /min BP - 91/53 mm(hg) O2 Sat - 99 % Pain - 4 Fatigue - 8 Physical Examination: Constitutional - He appears weak and somewhat listless. There has been a noticeable decline in his general appearance, Eyes - Sclerae nonicteric. Conjunctivae clear, ENMT - No lesions noted in the oral cavity, Hematologic/Lymphatic - No cervical, clavicular, or axillary adenopathy, Respiratory - Lungs are clear with good air movement bilaterally, Cardiovascular - Heart rhythm is regular. There is no murmur, gallop, or rub noted, Abdomen - Soft. Liver and spleen are not enlarged. There is no abdominal mass noted and there is no obvious ascites. There is no inguinal adenopathy noted, Extremities - There is mild swelling of the right leg, which is chronic. There is mild residual soft tissue swelling and erythema in the left groin area, Neurologic - There are no focal neurologic deficits noted. Lab/Imaging: Test performed on Mar 24, 2021 08:40 Sodium 137 mmol/L Potassium 4.5 mmol/L Chloride 102 mmol/L CO2 25 mmol/L Anion Gap 14.5 BUN 23 mg/dL Creatinine 1.7 mg/dL Cr Clearance (Est) 44.12 mL/min eGFR 40.9 mL/min Glucose 84 mg/dL Osmolality - Calculated 287 mOsm/kg Calcium 8.6 mg/dL Protein, Total 7.2 g/dL Albumin 3.8 g/dL Globulin 3.4 g/dL Bilirubin, Total 0.3 mg/dL ALT (SGPT) 8 U/L AST (SGOT) 17 U/L Alkaline Phosphatase 160 IU/L WBC 4.8 10 3/uL RBC 2.95 10 6/uL HGB 8.7 g/dL HCT 27.0 % MCV 91.5 fl MCH 29.5 pg MCHC 32.2 g/dL RDW 13.7 % Platelet Count 197 10 3/cmm MPV 9.3 fL Neutrophils 2.60 10 3/uL Lymphocytes 1.4 10 3/uL Monocytes 0.3 10 3/uL Eosinophils 0.4 10 3/uL Basophils 0.0 10 3/uL Neutrophil % 54.2 % Lymphocyte % 30.0 % Monocyte % 6.9 % Eosinophil % 8.1 % Basophils % 0.6 % NRBC % 0 % Problem List: 1. Melanoma involving the right calcaneal region, stage IIIA (pT2a, pN2a, M0) at initial diagnosis in 2015. 2. Hypertension. 3. Hyperlipidemia. 4. Type II diabetes. 5. GERD. 6. History of chronic urticaria. 7. Hypothyroidism. Problems Addressed with this Encounter and Plan: 1. Patient with melanoma involving the right calcaneal region, stage IIIA (pT2a, pN2a, M0) at initial diagnosis in 2015. His intial treatment included biopsy in May 2016 followed by wide excision with skin graft and with sentinel right inguinal lymph node biopsy on 07/03/2016 followed by right inguinal lymph node dissection on 07/24/2016. He was given adjuvant therapy with ipililumab 10 mg/kg for 4 cycles, completed in October 2016. He experienced multiple toxicities with the treatment. In November 2018 he had biopsy-proven recurrence in the right inguinal lymph node. On 01/06/2019 he began treatment with nivolumab. Following his initial infusion of nivolumab he required admission to the hospital with pneumonia/hypoxia. His clinical course was complicated by atrial fibrillation/RVR, requiring cardioversion. His further treatment with nivolumab was delayed. He was then admitted admitted to the hospital again with respiratory distress. By echocardiogram he had bilateral pleural effusions and loculated pericardial effusion. The pericardial effusion was noted to contain particulate material, suspicious for metastatic disease. He underwent thoracentesis. There were no malignant cells seen in the pleural fluid. At his follow-up visit on 01/30/2019 he had very poor performance status, and he was still moderately anemic. His serum iron studies were consistent with iron deficiency. He continued antibiotic therapy for the pneumonia, and at that point I had him start empiric steroid therapy with prednisone. He began parenteral iron replacement with Injectafer on 02/12/2019. His restaging PET/CT on showed no evidence for active malignancy. On 03/04/2019 he continued with cycle 2 of nivolumab at the 2-week dosing schedule. He tolerated it well, and he then continued nivolumab at 240 mg IV every 2 weeks. During treatment he had to start thyroid replacement for hypothyroidism. He continued to have some ongoing fatigue, but he otherwised tolerate treatment well. As of 02/16/2020 he had received cycle 27 of nivolumab at the 240 mg dosage, which completed a full year of treatment. His restaging CT scans on 03/21/2020 showed no evidence of metastatic disease in the chest, abdomen, or pelvis. He then began on expectant management, and during follow-up he was able to successfully taper off prednisone. As of his follow-up visit in November 2020 he was reporting increased difficulty with balance, and he was showing some decline in performance status. His brain MRI showed no evidence of metastatic disease. A restaging PET/CT showed an FDG avid lymph node in the left groin, for which she underwent ultrasound-guided biopsy on 02/08/2021. Pathology was benign. The procedure was complicated by development of seroma, which required a drainage procedure. He has since then been on antibiotic therapy. At this point there has been no documentation of any further recurrence of the melanoma, but he has again become significantly anemic and there has been an increase in his alkaline phosphatase level. He has been showing a significant decline in performance status. He also continues to have significant issues with his balance, and he is also showing some evidence of cognitive dysfunction. I will request some additional laboratory studies today to include TSH level, B12 level, and serum iron studies. He will also be scheduled for a bone scan. He will have further evaluation as indicated. In the meantime, I will have him continue antibiotic coverage with Bactrim. Signed By: Robel Sterling M.D. <<Signature on File>>
[2021-03-27 11:05] LABS: Erythrocyte Sedimentation Rate 19 mm/hr (0-10)
== END 2021-03-24 06:49 | disposition home or self-care (01) ==
LOC: ONCMED 06:51
PROVIDERS: PCP Internal Medicine; Visit Provider Internal Medicine Medical Oncology
DX: Z08 Encounter for follow-up examination after completed treatment for malignant neoplasm (principal); Z85.820 Personal history of malignant melanoma of skin; D64.9 Anemia, unspecified; Z79.899 Other long term (current) drug therapy; I10 Essential (primary) hypertension; E78.5 Hyperlipidemia, unspecified; E11.9 Type 2 diabetes mellitus without complications; K21.9 Gastro-esophageal reflux disease without esophagitis; E03.9 Hypothyroidism, unspecified
CPT/HCPCS: 36591; 80053; 82607; 83010; 83540; 83550; 83615; 84443; 85025; 85045; 85651; 99214

== ENCOUNTER 2021-03-30 06:52 | Outpatient (CLI) | payer MEDICARE, SELFPAY ==
[2021-03-30] MEDS: ferric carboxy (IVPB) 750 MG in sodium chloride 0.9% (100 ml) 100 ML 460 MG IV (11:10)
== END 2021-03-30 06:53 | disposition home or self-care (01) ==
LOC: ONCMED 06:52
PROVIDERS: PCP Internal Medicine; Visit Provider Internal Medicine Medical Oncology
DX: D64.9 Anemia, unspecified (principal); Z85.820 Personal history of malignant melanoma of skin; Z79.899 Other long term (current) drug therapy
CPT/HCPCS: 96365; J1439

== ENCOUNTER 2021-04-06 06:59 | Outpatient (CLI) | payer MEDICARE, SELFPAY ==
--- NOTE | 2021-04-06 07:09 | NM_ITS ---
WS: [id number] NUCLEAR MEDICINE BONE SCAN Radiopharmaceutical: 26.4 Tc-99m MDP mCi IV Injection site: Left antecubital Postinjection imaging delay: 1 hr CLINICAL INFORMATION: BONE PAIN, MELANOMA COMPARISON: None. FINDINGS: Bone lesions: Focal punctate area of activity involving the right mandible, near the angle of the man dible. This is nonspecific but may be due to odontogenic/dental disease. Metastatic disease is diffic ult to entirely excluded. Recommend clinical correlation for recent dental procedure. This is new sin ce the prior PET/CT December 31, 2020. Otherwise no evidence of suspicious bony activity. Soft tissue contours: Normal. Kidneys: Normal. Other findings: Thoracolumbar scoliosis. 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 NM/NM bone scan whole body* [id number] IMPRESSION: 1. Focal punctate area of activity involving the right mandible. This is nonsp ecific but may be due to odontogenic/dental disease. Although unusual, metastat ic disease is difficult to entirely excluded. Recommend clinical correlation fo r recent dental procedure. 3 month follow-up bone scan could be performed for c omparison. 2. Otherwise no evidence of bony metastatic disease.
[2021-04-06] MEDS: ferric carboxy (IVPB) 750 MG in sodium chloride 0.9% (100 ml) 100 ML 460 MG IV (10:20)
== END 2021-04-06 07:00 | disposition home or self-care (01) ==
LOC: NM 07:03 → ONCMED 09:55
PROVIDERS: PCP Internal Medicine; Visit Provider Internal Medicine Medical Oncology
DX: C77.4 Secondary and unspecified malignant neoplasm of inguinal and lower limb lymph nodes (principal); C43.71 Malignant melanoma of right lower limb, including hip
CPT/HCPCS: 78306; 96365; A9561; J1439

== ENCOUNTER 2021-05-04 09:20 | Outpatient (CLI) | payer MEDICARE, SELFPAY ==
[2021-05-04 10:10] LABS: Basophils % 0.3 %; Eosinophils % 0.6 %; Hemoglobin 11.7 g/dL (11.7-16.6); Lymphocytes # 0.8 10^3/uL (0.8-4.8); Lymphocytes % 10.5 %; Mean Corpuscular HGB Conc 32.5 g/dL (30.0-36.0); Mean Corpuscular Hemoglobin 31.4 pg (28.0-34.0); Mean Corpuscular Volume 96.5 fl (80-94); Monocytes # 0.2 10^3/uL (0.2-0.9); Monocytes % 2.9 %; Neutrophils # 6.09 10^3/uL (1.8-7.7); Neutrophils % 85.3 %; Nucleated Red Blood Cells % 0 %; Platelet Count 187 10^3/cmm (130-400); Red Blood Count 3.73 10^6/uL (4.1-5.3); Red Cell Distribution Width 18.6 % (12.1-15.1); White Blood Count 7.1 10^3/uL (4.0-10.0)
[2021-05-04 10:28] LABS: Ferritin 708 ng/mL (30-400); Iron 95 ug/dL (59-158); Percent Saturation 44.3 % (20-50); Total Iron Binding Capacity 214 mcg/dl; Unsaturated Iron Binding 119 ug/dL (112-347)
--- NOTE | 2021-05-04 20:20 | ONC FU_ITS ---
Dr. Sterling Patient Follow-Up Note Patient: Alfonso Grant Unit #: [id number]: 1955 Dicatated By: Robel Sterling M.D.Date of Visit:May 04, 2021 Onc Med Follow-up/Prog Note Chief Complaint: Melanoma. History of Present Illness: This is a 65 year-old man with melanoma of the right calcaneal region, stage IIIA (pT2a, pN2a, M0) at initial diagnosis in 2015, but with subsequent right inguinal lymph node recurrence. He had seen Dr. Ortiz in May 2016 after he had become aware of a change in a mole on his right heel. The initial biopsy showed melanoma with a Breslow depth of 1.6 mm with no ulcerations and no mitoses identified. He was referred to Dr. Messer in [place]. On 07/03/2016 he underwent wide excision with skin graft and with sentinel right inguinal lymph node biopsy. Pathology showed acral lentiginous melanoma measuring 1.4 x 1.4 cm. The residual tumor had a Breslow depth of 0.8 mm. There was no ulceration noted and there were 0 mitoses/square millimeter. A total of 3 sentinel lymph nodes were excised, 2 of which were positive for metastatic melanoma on SOX-10 and MART-1 stains. The largest size of metastatic focus measured 0.4 mm. MRI of the abdomen on 07/13/2016 showed no lymphadenopathy or other evidence of metastatic disease. PET/CT at that time also showed no evidence for metabolically active malignancy. On 07/24/2016 he underwent right inguinal lymph node dissection. There was no additional metastatic lymph node involvement. He had medical oncology consultation with Dr. Briseno, and he was recommended to consider adjuvant therapy with ipililumab. I had seen him for a second opinion evaluation on 09/10/2016. Given his high risk for recurrence, I also recommended the adjuvant therapy. He then proceeded with the high-dose ipililumab regimen, completing 4 cycles of treatment from 09/19/2016 through 11/20/2016. He experienced multiple toxicities with the treatment. During subsequent follow-up he had done well until October 2018 when his surveillance PET/CT showed a small focus of uptake in the subcutaneous tissue of the upper medial right thigh, suspicious for neoplastic involvement. There were no other sites of abnormal uptake on that study. He then underwent surgical resection of the involved area on 12/15/2018, pathology confirming metastatic melanoma. A BRAF mutation was not detected. He began treatment with nivolumab on 01/06/2019. Several days following his initial infusion he was admitted to the hospital with pneumonia/hypoxia. He developed atrial fibrillation/RVR, requiring cardioversion. He was discharged on 01/19/2019. His further treatment with nivolumab was delayed. On 01/26/2019 he was admitted to [facility] after presenting to the emergency room with respiratory distress. His chest x-ray showed development of moderate left pleural effusion with probable atelectasis or pneumonia of the left lower lobe. His echocardiogram showed loculated pericardial effusion with large bilateral pleural effusions. The pericardial effusion was noted to be more prominent towards the apex and it contained particulate material, suspicious for metastatic disease to the pericardium. He underwent thoracentesis. The pleural fluid studies included normal LDH and a negative Gram stain. The morphologic assessment showed benign appearing mesothelial cells in a background of mild mixed inflammation and blood. There was no atypia or malignancy seen. He was discharged home on 01/28/2019 on continued antibiotic coverage with Cefdnir 300 mg twice a day. His other medical illnesses include hypertension, hyperlipidemia, type II diabetes, and GERD. He also has a history of chronic urticaria. He has a very minimal smoking history, and he had quit smoking in 1980. He was seen her for a follow-up visit on 01/30/2019. He was still very weak, and he had very marginal performance status. He was still significantly anemic with his hemoglobin low at 9.2 g. He had low transferrin saturation 9.8%, consistent with iron deficiency. At that point he continued antibiotic therapy for the pneumonia. I opted to have him start empiric steroid therapy with prednisone, and he also began diuretic therapy with furosemide, as he had significant fluid retention. He returned on 02/12/2019 for parenteral iron replacement with Injectafer. Restaging PET/CT on 02/16/2018 showed no abnormal pulmonary parenchymal uptake. A small left pleural effusion showed no suspicious activity. There was no right pleural effusion noted and no pericardial effusion noted. There was no abnormal lymph node uptake, and no evidence for metabolically active malignancy. I had seen him for a follow-up visit on 02/19/2019. At that point he was feeling much better. He received his second infusion of Injectafer, and with the PET/CT showing no evidence of active malignancy, we opted to continue his treatment with nivolumab. On 03/04/2019 he returned for cycle 2 of nivolumab, administered at the 2-week dosing schedule. He tolerated it well, and he was then able to continue treatment at 2- week intervals. As of 02/16/2020 he received his 27th cycle of nivolumab at the 240 mg dosage, which completed a year of treatment. Restaging CT scans on 03/21/2020 showed no evidence for metastatic disease in the chest, abdomen, or pelvis. With those findings, he was followed on observation/expectant management. Head MRI on 12/15/2020 showed no evidence of metastatic disease. A repeat PET/CT showed an FDG avid lymph node in the left groin. With that finding he was referred to Dr. Messer, and he underwent left inguinal lymph node biopsy on 02/20/2021. Pathology showed benign fragments of fibroadipose tissue with acute inflammation and necrotic elements. There was no malignancy identified. Subsequent to that procedure, he developed a fluid collection in the left groin consistent with seroma, for which he underwent drainage procedure under ultrasound. He was given antibiotic coverage with Bactrim. I had then seen him for a follow-up visit on 03/24/2021. At that point he had shown a very significant decline in his performance status. He was significantly anemic with hemoglobin down to 8.7 g. His serum iron studies showed borderline low transferrin saturation at 21.5%, and with that finding I did opt to give him parenteral iron replacement with single infusion of Injectafer. I also opted to empirically restart steroid therapy. Based on his PET/CT findings he also had further evaluation with bone scan on 04/06/2021. It showed a focal punctate area of activity involving the right mandible. It was felt to most likely be due to odontogenic/dental disease, though metastatic involvement was not excluded. He then had dental evaluation, which included Panorex and CT. We received a verbal report that the CT showed suspicious findings in the right mandible, but for technical reasons we have not yet been able to view those images. He is seen for a follow-up visit. He has been feeling better generally since he has been back on prednisone, currently at 10 mg twice daily. It has caused his blood sugars to be more elevated, and he has started treatment with Levemir and a sliding scale. His energy is much better now, though he still has fairly limited activity. ECOG score is two. His appetite has improved. He does not have fever or night sweats. He has not had sore mouth or throat. He does report having a little tickle when he first lies down at night, and he has some cough associated with that. He does not complain of shortness of breath or chest pain. He has no GI or complaints. He has some pain in his knees and in his back, but not bad. He does not complain of headache or dizziness, and he has no focal neurologic symptoms. Medications: Acetaminophen Extra Strength 1 - 2 Tablet (of 500 mg) Oral PRN, Amiodarone HCl 1 Tablet (of 200 mg) Oral daily, Cetirizine HCl 1 Tablet (of 10 mg) Oral four times a day, Eliquis 1 Tablet (of 5 mg) Oral b.i.d., Furosemide 1 (20 mg) Tablet Oral daily, Gabapentin 3 Capsule (of 300 mg) Oral at bedtime, HumaLOG (100 Units/mL) Subcutaneous Take as Directed, Lantus SoloStar 20 Unit(s) (of 100 Units/mL) Subcutaneous daily, Levothyroxine Sodium 1 Tablet (of 25 mcg) Oral daily, Lipitor 1 (20 mg) Tablet Oral daily, Melatonin 1 (10 mg) Tablet Oral at bedtime, metFORMIN HCl 1 (500 mg) Tablet Oral daily, Mirtazapine 1 Tablet (of 30 mg) Oral at bedtime, Omeprazole 1 Tablet (of 20 mg) Tablet, enteric coated Oral b.i.d., traZODone HCl (50 mg) Tablet Oral at bedtime Allergies: No Known Allergies. Vital Signs: Performed on May 04, 2021 10:00 Height - 69.00 in Weight - 159.8 lbs (HIGH) BSA - 1.88 sq.m BMI - 23.60 Temperature - 97.8 F (LOW) Pulse - 54 /min (LOW) Respiration - 18 /min BP - 111/66 mm(hg) O2 Sat - 98 % Pain - 3 Fatigue - 7 Physical Examination: Constitutional - He still appears somewhat weak generally, Eyes - Sclerae nonicteric. Conjunctivae clear, ENMT - No lesions noted in the oral cavity, Hematologic/Lymphatic - No cervical, clavicular, or axillary adenopathy, Respiratory - Lungs are clear with good air movement bilaterally, Cardiovascular - Heart rhythm is regular. There is no murmur, gallop, or rub noted, Abdomen - Soft. Liver and spleen are not enlarged. There is no abdominal mass noted and there is no obvious ascites. There is no inguinal adenopathy noted, Extremities - There is mild swelling of the right leg, which is chronic, Neurologic - There are no focal neurologic deficits noted. Lab/Imaging: Test performed on May 04, 2021 09:44 Ferritin 708 ng/mL Iron 95 mcg/dL Iron Binding Capacity (TIBC) 214 mcg/dl % Iron Saturation 44.3 % UIBC 119 mcg/dL WBC 7.1 10 3/uL RBC 3.73 10 6/uL HGB 11.7 g/dL HCT 36.0 % MCV 96.5 fl MCH 31.4 pg MCHC 32.5 g/dL RDW 18.6 % Platelet Count 187 10 3/cmm MPV 9.0 fL Neutrophils 6.09 10 3/uL Lymphocytes 0.8 10 3/uL Monocytes 0.2 10 3/uL Eosinophils 0.0 10 3/uL Basophils 0.0 10 3/uL Neutrophil % 85.3 % Lymphocyte % 10.5 % Monocyte % 2.9 % Eosinophil % 0.6 % Basophils % 0.3 % NRBC % 0 % Problem List: 1. Melanoma involving the right calcaneal region, stage IIIA (pT2a, pN2a, M0) at initial diagnosis in 2015. 2. Hypertension. 3. Hyperlipidemia. 4. Type II diabetes. 5. GERD. 6. History of chronic urticaria. 7. Hypothyroidism. Problems Addressed with this Encounter and Plan: Patient with melanoma involving the right calcaneal region, stage IIIA (pT2a, pN2a, M0) at initial diagnosis in 2015. His intial treatment included biopsy in May 2016 followed by wide excision with skin graft and with sentinel right inguinal lymph node biopsy on 07/03/2016 followed by right inguinal lymph node dissection on 07/24/2016. He was given adjuvant therapy with ipililumab 10 mg/kg for 4 cycles, completed in October 2016. He experienced multiple toxicities with the treatment. In November 2018 he had biopsy-proven recurrence in the right inguinal lymph node. On 01/06/2019 he began treatment with nivolumab. Following his initial infusion of nivolumab he required admission to the hospital with pneumonia/hypoxia. His clinical course was complicated by atrial fibrillation/RVR, requiring cardioversion. His further treatment with nivolumab was delayed. He was then admitted admitted to the hospital again with respiratory distress. By echocardiogram he had bilateral pleural effusions and loculated pericardial effusion. The pericardial effusion was noted to contain particulate material, suspicious for metastatic disease. He underwent thoracentesis. There were no malignant cells seen in the pleural fluid. At his follow-up visit on 01/30/2019 he had very poor performance status, and he was still moderately anemic. His serum iron studies were consistent with iron deficiency. He continued antibiotic therapy for the pneumonia, and at that point I had him start empiric steroid therapy with prednisone. He began parenteral iron replacement with Injectafer on 02/12/2019. His restaging PET/CT on showed no evidence for active malignancy. On 03/04/2019 he continued with cycle 2 of nivolumab at the 2-week dosing schedule. He tolerated it well, and he then continued nivolumab at 240 mg IV every 2 weeks. During treatment he had to start thyroid replacement for hypothyroidism. He continued to have some ongoing fatigue, but he otherwised tolerate treatment well. As of 02/16/2020 he had received cycle 27 of nivolumab at the 240 mg dosage, which completed a full year of treatment. His restaging CT scans on 03/21/2020 showed no evidence of metastatic disease in the chest, abdomen, or pelvis. He then began on expectant management, and during follow-up he was able to successfully taper off prednisone. As of his follow-up visit in November 2020 he was reporting increased difficulty with balance, and he was showing some decline in performance status. His brain MRI showed no evidence of metastatic disease. A restaging PET/CT showed an FDG avid lymph node in the left groin, for which she underwent ultrasound-guided biopsy on 02/08/2021. Pathology was benign. The procedure was complicated by development of seroma, which required a drainage procedure and antibiotic therapy. At his follow-up visit on 03/24/2021 he had shown a significant decline in his performance status, he also was significantly anemic. I opted to empirically restart steroid therapy with prednisone. He also was given parenteral iron replacement with Injectafer. He appears to be showing a good clinical response. Thus far there has been no documented recurrence of the melanoma. His recent bone scan, though, did show focal uptake in the right mandible, and that issue still needs to be resolved. I am going to review the recent studies with the radiologist and will then make a determination regarding his further evaluation. In the meantime, he will decrease prednisone to 10 mg daily. I will have him try increasing his Metformin from 500 mg to 850 mg daily. He will stop the sliding scale. If his blood sugars remain controlled, I will also stop the Levemir. Signed By: Robel Sterling M.D. <<Signature on File>>
== END 2021-05-04 09:21 | disposition home or self-care (01) ==
LOC: ONCMED 09:22
PROVIDERS: PCP Internal Medicine; Visit Provider Internal Medicine Medical Oncology
DX: Z08 Encounter for follow-up examination after completed treatment for malignant neoplasm (principal); Z85.820 Personal history of malignant melanoma of skin; I10 Essential (primary) hypertension; E78.5 Hyperlipidemia, unspecified; E11.9 Type 2 diabetes mellitus without complications; K21.9 Gastro-esophageal reflux disease without esophagitis; E03.9 Hypothyroidism, unspecified; L50.8 Other urticaria; Z79.4 Long term (current) use of insulin; Z79.52 Long term (current) use of systemic steroids; Z79.2 Long term (current) use of antibiotics; Z92.21 Personal history of antineoplastic chemotherapy
CPT/HCPCS: 36591; 82728; 83540; 83550; 85025; 90471; 90686; 99214

== ENCOUNTER 2021-05-15 08:44 | Outpatient (CLI) | payer MEDICARE, SELFPAY ==
[2021-05-15 11:10] LABS: Blood Urea Nitrogen 27 mg/dL (8-23); Glomerular Filtration Rate 85.2 mL/min (90-130)
== END 2021-05-15 08:45 | disposition home or self-care (01) ==
LOC: RADWPI 10:05 → RAD 05-18 09:03
PROVIDERS: PCP Internal Medicine; Visit Provider Internal Medicine Medical Oncology
DX: C43.71 Malignant melanoma of right lower limb, including hip (principal)
CPT/HCPCS: 36415; 82565; 84520

== ENCOUNTER 2021-05-18 08:30 | Outpatient (CLI) | payer MEDICARE, SELFPAY ==
--- NOTE | 2021-05-18 09:10 | CT_ITS ---
WS: [id number] NONCONTRAST AND CONTRAST-ENHANCED CT FACE TECHNIQUE: CT face with coronal and sagittal reformatted images. CLINICAL INFORMATION: MELANOMA/BONE PAIN COMPARISON: Bone scan April 06, 2021 DLP: [id number] scans at [facility] use at least one of these dose optimization techniques: automated e xposure control; mA and/or kV adjustment per patient size (includes targeted exams where dose is matc hed to clinical indication); or iterative reconstruction. FINDINGS: Recent bone scan review. Sclerotic focus in the right mandibular body appears to correspond to the fo stuart punctate area of uptake on the recent bone scan. This measures approximately 10.2 x 7.0 mm. No ev idence of bony destruction. Buccal and lingual cortex appears intact. Periapical lucencies about the adjacent right molars. Findings are nonspecific but would be unusual for metastatic melanoma and find ings likely due to odontogenic disease. This can be followed up in 3 months with bone scan and noncon trast face CT to confirm stability. No enhancement. Paranasal sinuses and mastoid air cells are well aerated. Small retention cyst right maxillary sinus. Normal posterior nasopharynx. Normal parapharyngeal fat. Normal pterygopalatine fossa. Partially vis ualized intracranial contents appear normal. Cavernous carotid calcification. Mild spondylitic change s cervical spine. CT/CT facial bones wo/w con [id number] IMPRESSION: 1. Well-circumscribed sclerotic lesion in the right mandible appears to corres pond to the bone scan findings. Surrounding cortical lucency with no evidence o f bony destruction. Findings are nonspecific but more likely due to odontogenic disease. This is not typical for melanoma metastasis. This can be followed up in 3 months with bone scan and noncontrast facial CT to confirm stability. No e nhancement. 2. No other suspicious findings.
[2021-05-18] MEDS: iohexol 300 mg/mL 100 mL Btl IV (09:59)
== END 2021-05-18 08:31 | disposition home or self-care (01) ==
LOC: ONCMED 08:31
PROVIDERS: PCP Internal Medicine; Visit Provider Internal Medicine Medical Oncology
DX: C43.71 Malignant melanoma of right lower limb, including hip (principal); C77.4 Secondary and unspecified malignant neoplasm of inguinal and lower limb lymph nodes; D50.9 Iron deficiency anemia, unspecified; G89.3 Neoplasm related pain (acute) (chronic)
CPT/HCPCS: 70488; 96523; Q9967

== ENCOUNTER 2021-05-19 06:34 | Outpatient (CLI) | payer MEDICARE, SELFPAY ==
--- NOTE | 2021-05-19 12:47 | ONC FU_ITS ---
Dr. Sterling Patient Follow-Up Note Patient: Alfonso Grant Unit #: [id number]: [id number] Dicatated By: Robel Sterling M.D.Date of Visit:May 19, 2021 Onc Med Follow-up/Prog Note Chief Complaint: Melanoma. History of Present Illness: This is a 65 year-old man with melanoma of the right calcaneal region, stage IIIA (pT2a, pN2a, M0) at initial diagnosis in 2015, but with subsequent right inguinal lymph node recurrence. He had seen Dr. Ortiz in May 2016 after he had become aware of a change in a mole on his right heel. The initial biopsy showed melanoma with a Breslow depth of 1.6 mm with no ulcerations and no mitoses identified. He was referred to Dr. Messer in [place]. On 07/03/2016 he underwent wide excision with skin graft and with sentinel right inguinal lymph node biopsy. Pathology showed acral lentiginous melanoma measuring 1.4 x 1.4 cm. The residual tumor had a Breslow depth of 0.8 mm. There was no ulceration noted and there were 0 mitoses/square millimeter. A total of 3 sentinel lymph nodes were excised, 2 of which were positive for metastatic melanoma on SOX-10 and MART-1 stains. The largest size of metastatic focus measured 0.4 mm. MRI of the abdomen on 07/13/2016 showed no lymphadenopathy or other evidence of metastatic disease. PET/CT at that time also showed no evidence for metabolically active malignancy. On 07/24/2016 he underwent right inguinal lymph node dissection. There was no additional metastatic lymph node involvement. He had medical oncology consultation with Dr. Briseno, and he was recommended to consider adjuvant therapy with ipililumab. I had seen him for a second opinion evaluation on 09/10/2016. Given his high risk for recurrence, I also recommended the adjuvant therapy. He then proceeded with the high-dose ipililumab regimen, completing 4 cycles of treatment from 09/19/2016 through 11/20/2016. He experienced multiple toxicities with the treatment. During subsequent follow-up he had done well until October 2018 when his surveillance PET/CT showed a small focus of uptake in the subcutaneous tissue of the upper medial right thigh, suspicious for neoplastic involvement. There were no other sites of abnormal uptake on that study. He then underwent surgical resection of the involved area on 12/15/2018, pathology confirming metastatic melanoma. A BRAF mutation was not detected. He began treatment with nivolumab on 01/06/2019. Several days following his initial infusion he was admitted to the hospital with pneumonia/hypoxia. He developed atrial fibrillation/RVR, requiring cardioversion. He was discharged on 01/19/2019. His further treatment with nivolumab was delayed. On 01/26/2019 he was admitted to [facility] after presenting to the emergency room with respiratory distress. His chest x-ray showed development of moderate left pleural effusion with probable atelectasis or pneumonia of the left lower lobe. His echocardiogram showed loculated pericardial effusion with large bilateral pleural effusions. The pericardial effusion was noted to be more prominent towards the apex and it contained particulate material, suspicious for metastatic disease to the pericardium. He underwent thoracentesis. The pleural fluid studies included normal LDH and a negative Gram stain. The morphologic assessment showed benign appearing mesothelial cells in a background of mild mixed inflammation and blood. There was no atypia or malignancy seen. He was discharged home on 01/28/2019 on continued antibiotic coverage with Cefdnir 300 mg twice a day. His other medical illnesses include hypertension, hyperlipidemia, type II diabetes, and GERD. He also has a history of chronic urticaria. He has a very minimal smoking history, and he had quit smoking in 1980. He was seen her for a follow-up visit on 01/30/2019. He was still very weak, and he had very marginal performance status. He was still significantly anemic with his hemoglobin low at 9.2 g. He had low transferrin saturation 9.8%, consistent with iron deficiency. At that point he continued antibiotic therapy for the pneumonia. I opted to have him start empiric steroid therapy with prednisone, and he also began diuretic therapy with furosemide, as he had significant fluid retention. He returned on 02/12/2019 for parenteral iron replacement with Injectafer. Restaging PET/CT on 02/16/2018 showed no abnormal pulmonary parenchymal uptake. A small left pleural effusion showed no suspicious activity. There was no right pleural effusion noted and no pericardial effusion noted. There was no abnormal lymph node uptake, and no evidence for metabolically active malignancy. I had seen him for a follow-up visit on 02/19/2019. At that point he was feeling much better. He received his second infusion of Injectafer, and with the PET/CT showing no evidence of active malignancy, we opted to continue his treatment with nivolumab. On 03/04/2019 he returned for cycle 2 of nivolumab, administered at the 2-week dosing schedule. He tolerated it well, and he was then able to continue treatment at 2- week intervals. As of 02/16/2020 he received his 27th cycle of nivolumab at the 240 mg dosage, which completed a year of treatment. Restaging CT scans on 03/21/2020 showed no evidence for metastatic disease in the chest, abdomen, or pelvis. With those findings, he was followed on observation/expectant management. Head MRI on 12/15/2020 showed no evidence of metastatic disease. A repeat PET/CT showed an FDG avid lymph node in the left groin. With that finding he was referred to Dr. Messer, and he underwent left inguinal lymph node biopsy on 02/20/2021. Pathology showed benign fragments of fibroadipose tissue with acute inflammation and necrotic elements. There was no malignancy identified. Subsequent to that procedure, he developed a fluid collection in the left groin consistent with seroma, for which he underwent drainage procedure under ultrasound. He was given antibiotic coverage with Bactrim. I had then seen him for a follow-up visit on 03/24/2021. At that point he had shown a very significant decline in his performance status. He was significantly anemic with hemoglobin down to 8.7 g. His serum iron studies showed borderline low transferrin saturation at 21.5%, and with that finding I did opt to give him parenteral iron replacement with single infusion of Injectafer. I also opted to empirically restart steroid therapy. Based on his PET/CT findings he also had further evaluation with bone scan on 04/06/2021. It showed a focal punctate area of activity involving the right mandible. It was felt to most likely be due to odontogenic/dental disease, though metastatic involvement was not excluded. He then had dental evaluation, which included Panorex and CT. We received a verbal report that the CT showed suspicious findings in the right mandible, but for technical reasons we have not yet been able to view those images. He then had further evaluation with CT of the facial bones on 05/18/2021. It showed a well-circumscribed sclerotic lesion in the right mandible which appeared to correspond to the bone scan findings. It measured approximately 10.2 x 7.0 mm. There was no evidence of bony destruction. The findings were felt to be nonspecific and more likely to be associated with odontogenic disease rather than a metastatic lesion. He is seen for a follow-up visit, mainly due to concerns about a new lump he is noticed in his right groin area. It is not painful. He also does not have any pain or other symptoms associated with the right mandible lesion. He does complain that his nose has been running, and he has been having some associated cough at night. He feels pretty good generally, though he does have limited activity. ECOG score is 2. His appetite has been okay. He does not have fever or night sweats. He does not complain of shortness of breath or chest pain. He has no GI or complaints. He has no significant joint or bone pain. He has had headache occasionally. He has no focal neurologic symptoms. Medications: Acetaminophen Extra Strength 1 - 2 Tablet (of 500 mg) Oral PRN, Amiodarone HCl 1 Tablet (of 200 mg) Oral daily, Cetirizine HCl 1 Tablet (of 10 mg) Oral four times a day PRN, Eliquis 1 Tablet (of 5 mg) Oral b.i.d., Furosemide 1 (20 mg) Tablet Oral daily, Gabapentin 3 Capsule (of 300 mg) Oral at bedtime, Levothyroxine Sodium 1 Tablet (of 25 mcg) Oral daily, Lipitor 1 (20 mg) Tablet Oral daily, Melatonin 1 (10 mg) Tablet Oral at bedtime, metFORMIN HCl 1 (750 mg) Tablet Oral daily, Omeprazole 1 Tablet (of 20 mg) Tablet, enteric coated Oral b.i.d., traZODone HCl (50 mg) Tablet Oral at bedtime Allergies: No Known Allergies. Vital Signs: Performed on May 19, 2021 10:29 Height - 69.00 in Weight - 154.2 lbs (LOW) BSA - 1.85 sq.m BMI - 22.77 Temperature - 97.5 F (LOW) Pulse - 58 /min (LOW) Respiration - 18 /min BP - 119/72 mm(hg) O2 Sat - 98 % Pain - 0 Fatigue - 4 Physical Examination: Constitutional - He appears somewhat weak generally, but not acutely ill, Eyes - Sclerae nonicteric. Conjunctivae clear, ENMT - There are no lesions noted in the oral cavity, Hematologic/Lymphatic - No cervical, clavicular, or axillary adenopathy, Respiratory - Lungs sound clear, Cardiovascular - Heart rhythm is regular. There is no murmur, gallop, or rub noted, Abdomen - Soft. Liver and spleen are not enlarged. There is no abdominal mass noted and there is no obvious ascites. There is a soft nodule just inferior to the incision in the right inguinal area. It measures less than a centimeter. There is very slight discoloration of the overlying skin. He does not appear to have any inguinal adenopathy, Extremities - There is mild swelling of the right leg, which is chronic, Neurologic - There are no focal neurologic deficits noted. Problem List: 1. Melanoma involving the right calcaneal region, stage IIIA (pT2a, pN2a, M0) at initial diagnosis in 2015. 2. Hypertension. 3. Hyperlipidemia. 4. Type II diabetes. 5. GERD. 6. History of chronic urticaria. 7. Hypothyroidism. Problems Addressed with this Encounter and Plan: Patient with melanoma involving the right calcaneal region, stage IIIA (pT2a, pN2a, M0) at initial diagnosis in 2015. His intial treatment included biopsy in May 2016 followed by wide excision with skin graft and with sentinel right inguinal lymph node biopsy on 07/03/2016 followed by right inguinal lymph node dissection on 07/24/2016. He was given adjuvant therapy with ipililumab 10 mg/kg for 4 cycles, completed in October 2016. He experienced multiple toxicities with the treatment. In November 2018 he had biopsy-proven recurrence in the right inguinal lymph node. On 01/06/2019 he began treatment with nivolumab. Following his initial infusion of nivolumab he required admission to the hospital with pneumonia/hypoxia. His clinical course was complicated by atrial fibrillation/RVR, requiring cardioversion. His further treatment with nivolumab was delayed. He was then admitted admitted to the hospital again with respiratory distress. By echocardiogram he had bilateral pleural effusions and loculated pericardial effusion. The pericardial effusion was noted to contain particulate material, suspicious for metastatic disease. He underwent thoracentesis. There were no malignant cells seen in the pleural fluid. At his follow-up visit on 01/30/2019 he had very poor performance status, and he was still moderately anemic. His serum iron studies were consistent with iron deficiency. He continued antibiotic therapy for the pneumonia, and at that point I had him start empiric steroid therapy with prednisone. He began parenteral iron replacement with Injectafer on 02/12/2019. His restaging PET/CT on showed no evidence for active malignancy. On 03/04/2019 he continued with cycle 2 of nivolumab at the 2-week dosing schedule. He tolerated it well, and he then continued nivolumab at 240 mg IV every 2 weeks. During treatment he had to start thyroid replacement for hypothyroidism. He continued to have some ongoing fatigue, but he otherwised tolerate treatment well. As of 02/16/2020 he had received cycle 27 of nivolumab at the 240 mg dosage, which completed a full year of treatment. His restaging CT scans on 03/21/2020 showed no evidence of metastatic disease in the chest, abdomen, or pelvis. He then began on expectant management, and during follow-up he was able to successfully taper off prednisone. As of his follow-up visit in November 2020 he was reporting increased difficulty with balance, and he was showing some decline in performance status. His brain MRI showed no evidence of metastatic disease. A restaging PET/CT showed an FDG avid lymph node in the left groin, for which she underwent ultrasound-guided biopsy on 02/08/2021. Pathology was benign. The procedure was complicated by development of seroma, which required a drainage procedure and antibiotic therapy. At his follow-up visit on 03/24/2021 he had shown a significant decline in his performance status, he also was significantly anemic. I opted to empirically restart steroid therapy with prednisone. He also was given parenteral iron replacement with Injectafer. He felt much better generally after restarting on the steroid therapy, though did cause a significant increase in his blood sugars. He temporarily went back on Levemir, but as his prednisone dosage has been tapered, he has now been able to stop insulin and control his blood sugar adequately with his Metformin ER dosage increased to 750 mg daily. In the meantime, his bone scan on 04/06/2021 showed a focal area of increased activity involving the right mandible. CT of the facial bones on 05/18/2021 showed a well circumscribed sclerotic lesion in the right mandible which appeared to correspond to the bone scan findings. There was no associated bony destruction. The appearance was felt to be nonspecific and more consistent with odontogenic disease rather than a metastatic lesion. He is seen now because he has become aware of the new nodule in the right groin area. By clinical evaluation it does not appear to be suspicious for metastatic disease and for now he will just continue on observation/symptomatic management. I will see him again in 1 month. Signed By: Robel Sterling M.D. <<Signature on File>>
== END 2021-05-19 06:35 | disposition home or self-care (01) ==
LOC: ONCMED 06:35
PROVIDERS: PCP Internal Medicine; Visit Provider Internal Medicine Medical Oncology
DX: Z08 Encounter for follow-up examination after completed treatment for malignant neoplasm (principal); Z85.820 Personal history of malignant melanoma of skin; I10 Essential (primary) hypertension; E78.5 Hyperlipidemia, unspecified; E11.9 Type 2 diabetes mellitus without complications; K21.9 Gastro-esophageal reflux disease without esophagitis; E03.9 Hypothyroidism, unspecified; L50.8 Other urticaria; Z79.899 Other long term (current) drug therapy; Z92.21 Personal history of antineoplastic chemotherapy
CPT/HCPCS: G0463

== ENCOUNTER 2021-06-16 08:00 | Outpatient (CLI) | payer MEDICARE, SELFPAY ==
[2021-06-16 08:39] LABS: Basophils % 0.6 %; Eosinophils # 0.1 10^3/uL (0.0-0.8); Eosinophils % 1.7 %; Hematocrit 35.7 % (42.0-52.0); Hemoglobin 12.3 g/dL (11.7-16.6); Lymphocytes # 2.3 10^3/uL (0.8-4.8); Mean Corpuscular HGB Conc 34.5 g/dL (30.0-36.0); Mean Corpuscular Hemoglobin 31.8 pg (28.0-34.0); Mean Corpuscular Volume 92.2 fl (80-94); Mean Platelet Volume 10.1 fL (7.4-10.4); Monocytes # 0.5 10^3/uL (0.2-0.9); Monocytes % 6.4 %; Neutrophils # 4.26 10^3/uL (1.8-7.7); Nucleated Red Blood Cells % 0 %; Platelet Count 170 10^3/cmm (130-400); Red Blood Count 3.87 10^6/uL (4.1-5.3); Red Cell Distribution Width 14.3 % (12.1-15.1); White Blood Count 7.2 10^3/uL (4.0-10.0)
[2021-06-16 08:46] LABS: Alanine Aminotransferase 24 U/L (0-41); Alkaline Phosphatase 72 IU/L (40-130); Aspartate Amino Transferase 14 U/L (0-40); Blood Urea Nitrogen 20 mg/dL (8-23); Carbon Dioxide 24 mmol/L (22-29); Chloride 101 mmol/L (98-107); Glomerular Filtration Rate 85.2 mL/min (90-130); Glucose 186 mg/dL (65-115); Osmolality Calculated 295 mOsm/kg (285-295); Sodium 139 mmol/L (136-145); Total Bilirubin 0.3 mg/dL (0.15-1.2)
[2021-06-16 09:00] LABS: Anion Gap 17.9 (5-19); Potassium 3.9 mmol/L (3.5-5.1)
--- NOTE | 2021-06-19 06:34 | ONC FU_ITS ---
Dr. Sterling Patient Follow-Up Note Patient: Alfonso Grant Unit #: [id number]: 1955 Dicatated By: Robel Sterling M.D.Date of Visit:Jun 16, 2021 Onc Med Follow-up/Prog Note Chief Complaint: Melanoma. History of Present Illness: This is a 65 year-old man with melanoma of the right calcaneal region, stage IIIA (pT2a, pN2a, M0) at initial diagnosis in 2015, but with subsequent right inguinal lymph node recurrence. He had seen Dr. Ortiz in May 2016 after he had become aware of a change in a mole on his right heel. The initial biopsy showed melanoma with a Breslow depth of 1.6 mm with no ulcerations and no mitoses identified. He was referred to Dr. Messer in [place]. On 07/03/2016 he underwent wide excision with skin graft and with sentinel right inguinal lymph node biopsy. Pathology showed acral lentiginous melanoma measuring 1.4 x 1.4 cm. The residual tumor had a Breslow depth of 0.8 mm. There was no ulceration noted and there were 0 mitoses/square millimeter. A total of 3 sentinel lymph nodes were excised, 2 of which were positive for metastatic melanoma on SOX-10 and MART-1 stains. The largest size of metastatic focus measured 0.4 mm. MRI of the abdomen on 07/13/2016 showed no lymphadenopathy or other evidence of metastatic disease. PET/CT at that time also showed no evidence for metabolically active malignancy. On 07/24/2016 he underwent right inguinal lymph node dissection. There was no additional metastatic lymph node involvement. He had medical oncology consultation with Dr. Briseno, and he was recommended to consider adjuvant therapy with ipililumab. I had seen him for a second opinion evaluation on 09/10/2016. Given his high risk for recurrence, I also recommended the adjuvant therapy. He then proceeded with the high-dose ipililumab regimen, completing 4 cycles of treatment from 09/19/2016 through 11/20/2016. He experienced multiple toxicities with the treatment. During subsequent follow-up he had done well until October 2018 when his surveillance PET/CT showed a small focus of uptake in the subcutaneous tissue of the upper medial right thigh, suspicious for neoplastic involvement. There were no other sites of abnormal uptake on that study. He then underwent surgical resection of the involved area on 12/15/2018, pathology confirming metastatic melanoma. A BRAF mutation was not detected. He began treatment with nivolumab on 01/06/2019. Several days following his initial infusion he was admitted to the hospital with pneumonia/hypoxia. He developed atrial fibrillation/RVR, requiring cardioversion. He was discharged on 01/19/2019. His further treatment with nivolumab was delayed. On 01/26/2019 he was admitted to [facility] after presenting to the emergency room with respiratory distress. His chest x-ray showed development of moderate left pleural effusion with probable atelectasis or pneumonia of the left lower lobe. His echocardiogram showed loculated pericardial effusion with large bilateral pleural effusions. The pericardial effusion was noted to be more prominent towards the apex and it contained particulate material, suspicious for metastatic disease to the pericardium. He underwent thoracentesis. The pleural fluid studies included normal LDH and a negative Gram stain. The morphologic assessment showed benign appearing mesothelial cells in a background of mild mixed inflammation and blood. There was no atypia or malignancy seen. He was discharged home on 01/28/2019 on continued antibiotic coverage with Cefdnir 300 mg twice a day. His other medical illnesses include hypertension, hyperlipidemia, type II diabetes, and GERD. He also has a history of chronic urticaria. He has a very minimal smoking history, and he had quit smoking in 1980. He was seen her for a follow-up visit on 01/30/2019. He was still very weak, and he had very marginal performance status. He was still significantly anemic with his hemoglobin low at 9.2 g. He had low transferrin saturation 9.8%, consistent with iron deficiency. At that point he continued antibiotic therapy for the pneumonia. I opted to have him start empiric steroid therapy with prednisone, and he also began diuretic therapy with furosemide, as he had significant fluid retention. He returned on 02/12/2019 for parenteral iron replacement with Injectafer. Restaging PET/CT on 02/16/2018 showed no abnormal pulmonary parenchymal uptake. A small left pleural effusion showed no suspicious activity. There was no right pleural effusion noted and no pericardial effusion noted. There was no abnormal lymph node uptake, and no evidence for metabolically active malignancy. I had seen him for a follow-up visit on 02/19/2019. At that point he was feeling much better. He received his second infusion of Injectafer, and with the PET/CT showing no evidence of active malignancy, we opted to continue his treatment with nivolumab. On 03/04/2019 he returned for cycle 2 of nivolumab, administered at the 2-week dosing schedule. He tolerated it well, and he was then able to continue treatment at 2- week intervals. As of 02/16/2020 he received his 27th cycle of nivolumab at the 240 mg dosage, which completed a year of treatment. Restaging CT scans on 03/21/2020 showed no evidence for metastatic disease in the chest, abdomen, or pelvis. With those findings, he was followed on observation/expectant management. Head MRI on 12/15/2020 showed no evidence of metastatic disease. A repeat PET/CT showed an FDG avid lymph node in the left groin. With that finding he was referred to Dr. Messer, and he underwent left inguinal lymph node biopsy on 02/20/2021. Pathology showed benign fragments of fibroadipose tissue with acute inflammation and necrotic elements. There was no malignancy identified. Subsequent to that procedure, he developed a fluid collection in the left groin consistent with seroma, for which he underwent drainage procedure under ultrasound. He was given antibiotic coverage with Bactrim. I had then seen him for a follow-up visit on 03/24/2021. At that point he had shown a very significant decline in his performance status. He was significantly anemic with hemoglobin down to 8.7 g. His serum iron studies showed borderline low transferrin saturation at 21.5%, and with that finding I did opt to give him parenteral iron replacement with single infusion of Injectafer. I also opted to empirically restart steroid therapy. Based on his PET/CT findings he also had further evaluation with bone scan on 04/06/2021. It showed a focal punctate area of activity involving the right mandible. It was felt to most likely be due to odontogenic/dental disease, though metastatic involvement was not excluded. He then had dental evaluation, which included Panorex and CT. We received a verbal report that the CT showed suspicious findings in the right mandible, but for technical reasons we have not yet been able to view those images. He then had further evaluation with CT of the facial bones on 05/18/2021. It showed a well-circumscribed sclerotic lesion in the right mandible which appeared to correspond to the bone scan findings. It measured approximately 10.2 x 7.0 mm. There was no evidence of bony destruction. The findings were felt to be nonspecific and more likely to be associated with odontogenic disease rather than a metastatic lesion. He is seen for a follow-up visit. He recently was taken off amiodarone, apparently due to a decline in his pulmonary function studies. He is now taking carvedilol instead. His energy is fair. ECOG score is 1. He has good appetite. He has no fever or night sweats. He has not had sore mouth or throat, and he has no difficulty swallowing. He does not complain of cough, and he has not been having shortness of breath or chest pain. He has no GI/ complaints other than his bowel function is not real good. He complains that his joints are a little achy. He does not have headache or dizziness. He sometimes has numbness in his right leg. Medications: Acetaminophen Extra Strength 1 - 2 Tablet (of 500 mg) Oral PRN, Carvedilol 1 Tablet (of 6.25 mg) Oral b.i.d., Cetirizine HCl 1 Tablet (of 10 mg) Oral four times a day PRN, Eliquis 1 Tablet (of 5 mg) Oral b.i.d., Furosemide 1 (20 mg) Tablet Oral daily, Gabapentin 3 Capsule (of 300 mg) Oral at bedtime, Levothyroxine Sodium 1 Tablet (of 25 mcg) Oral daily, Lipitor 1 (20 mg) Tablet Oral daily, Melatonin 1 (10 mg) Tablet Oral at bedtime, metFORMIN HCl 1 (750 mg) Tablet Oral daily, Omeprazole 1 Tablet (of 20 mg) Tablet, enteric coated Oral b.i.d., traZODone HCl (50 mg) Tablet Oral at bedtime Allergies: No Known Allergies. Vital Signs: Performed on Jun 16, 2021 11:22 Height - 69.00 in Weight - 156.4 lbs (HIGH) BSA - 1.86 sq.m BMI - 23.10 Temperature - 97.5 F (LOW) Pulse - 46 /min (LOW) Respiration - 16 /min BP - 94/59 mm(hg) O2 Sat - 99 % Pain - 0 Fatigue - 5 Physical Examination: Constitutional - He still appears somewhat weak generally, Eyes - Sclerae nonicteric. Conjunctivae clear, ENMT - No lesions noted in the oral cavity, Hematologic/Lymphatic - No cervical, clavicular, or axillary adenopathy, Respiratory - Lungs sound clear, Cardiovascular - Heart rhythm is regular. There is no murmur, gallop, or rub noted, Abdomen - Soft. Liver and spleen are not enlarged. There is no abdominal mass noted and there is no obvious ascites. There is a small residual nodule just inferior to the incision in the right inguinal area. There is no inguinal adenopathy noted, Extremities - There is mild swelling of the right leg, Neurologic - There are no focal neurologic deficits noted. Lab/Imaging: Test performed on Jun 16, 2021 08:18 Sodium 139 mmol/L Potassium 3.9 mmol/L Chloride 101 mmol/L CO2 24 mmol/L Anion Gap 17.9 BUN 20 mg/dL Creatinine 0.9 mg/dL Cr Clearance (Est) 84.30 mL/min eGFR 85.2 mL/min Glucose 186 mg/dL Osmolality - Calculated 295 mOsm/kg Calcium 8.0 mg/dL Protein, Total 6.0 g/dL Albumin 4.0 g/dL Globulin 2.0 g/dL Bilirubin, Total 0.3 mg/dL ALT (SGPT) 24 U/L AST (SGOT) 14 U/L Alkaline Phosphatase 72 IU/L WBC 7.2 10 3/uL RBC 3.87 10 6/uL HGB 12.3 g/dL HCT 35.7 % MCV 92.2 fl MCH 31.8 pg MCHC 34.5 g/dL RDW 14.3 % Platelet Count 170 10 3/cmm MPV 10.1 fL Neutrophils 4.26 10 3/uL Lymphocytes 2.3 10 3/uL Monocytes 0.5 10 3/uL Eosinophils 0.1 10 3/uL Basophils 0.0 10 3/uL Neutrophil % 59.0 % Lymphocyte % 32.0 % Monocyte % 6.4 % Eosinophil % 1.7 % Basophils % 0.6 % NRBC % 0 % Problem List: 1. Melanoma involving the right calcaneal region, stage IIIA (pT2a, pN2a, M0) at initial diagnosis in 2015. 2. Hypertension. 3. Hyperlipidemia. 4. Type II diabetes. 5. GERD. 6. History of chronic urticaria. 7. Hypothyroidism. Problems Addressed with this Encounter and Plan: Patient with melanoma involving the right calcaneal region, stage IIIA (pT2a, pN2a, M0) at initial diagnosis in 2015. His intial treatment included biopsy in May 2016 followed by wide excision with skin graft and with sentinel right inguinal lymph node biopsy on 07/03/2016 followed by right inguinal lymph node dissection on 07/24/2016. He was given adjuvant therapy with ipililumab 10 mg/kg for 4 cycles, completed in October 2016. He experienced multiple toxicities with the treatment. In November 2018 he had biopsy-proven recurrence in the right inguinal lymph node. On 01/06/2019 he began treatment with nivolumab. Following his initial infusion of nivolumab he required admission to the hospital with pneumonia/hypoxia. His clinical course was complicated by atrial fibrillation/RVR, requiring cardioversion. His further treatment with nivolumab was delayed. He was then admitted admitted to the hospital again with respiratory distress. By echocardiogram he had bilateral pleural effusions and loculated pericardial effusion. The pericardial effusion was noted to contain particulate material, suspicious for metastatic disease. He underwent thoracentesis. There were no malignant cells seen in the pleural fluid. At his follow-up visit on 01/30/2019 he had very poor performance status, and he was still moderately anemic. His serum iron studies were consistent with iron deficiency. He continued antibiotic therapy for the pneumonia, and at that point I had him start empiric steroid therapy with prednisone. He began parenteral iron replacement with Injectafer on 02/12/2019. His restaging PET/CT on showed no evidence for active malignancy. On 03/04/2019 he continued with cycle 2 of nivolumab at the 2-week dosing schedule. He tolerated it well, and he then continued nivolumab at 240 mg IV every 2 weeks. During treatment he had to start thyroid replacement for hypothyroidism. He continued to have some ongoing fatigue, but he otherwised tolerate treatment well. As of 02/16/2020 he had received cycle 27 of nivolumab at the 240 mg dosage, which completed a full year of treatment. His restaging CT scans on 03/21/2020 showed no evidence of metastatic disease in the chest, abdomen, or pelvis. He then began on expectant management, and during follow-up he was able to successfully taper off prednisone. As of his follow-up visit in November 2020 he was reporting increased difficulty with balance, and he was showing some decline in performance status. His brain MRI showed no evidence of metastatic disease. A restaging PET/CT showed an FDG avid lymph node in the left groin, for which she underwent ultrasound-guided biopsy on 02/08/2021. Pathology was benign. The procedure was complicated by development of seroma, which required a drainage procedure and antibiotic therapy. At his follow-up visit on 03/24/2021 he had shown a significant decline in his performance status, he also was significantly anemic. I opted to empirically restart steroid therapy with prednisone. He also was given parenteral iron replacement with Injectafer. He felt much better generally after restarting on the steroid therapy, though did cause a significant increase in his blood sugars. He temporarily went back on Levemir, but as his prednisone dosage has been tapered, he has now been able to stop insulin and control his blood sugar adequately with his Metformin ER dosage increased to 750 mg daily. In the meantime, his bone scan on 04/06/2021 showed a focal area of increased activity involving the right mandible. CT of the facial bones on 05/18/2021 showed a well circumscribed sclerotic lesion in the right mandible which appeared to correspond to the bone scan findings. There was no associated bony destruction. The appearance was felt to be nonspecific and more consistent with odontogenic disease rather than a metastatic lesion. Overall, he has continued to have somewhat marginal performance status but thus far there has been no evidence of any further recurrence of the melanoma. He continues on expectant management. I am going to schedule him for some additional laboratory studies, including a cosyntropin stimulation test. He will come in for port flush monthly. I will tentatively plan a follow-up visit in 3 months. Signed By: Robel Sterling M.D. <<Signature on File>>
== END 2021-06-16 08:01 | disposition home or self-care (01) ==
LOC: ONCMED 08:02
PROVIDERS: PCP Internal Medicine; Visit Provider Internal Medicine Medical Oncology
DX: Z08 Encounter for follow-up examination after completed treatment for malignant neoplasm (principal); C43.71 Malignant melanoma of right lower limb, including hip; I10 Essential (primary) hypertension; E78.5 Hyperlipidemia, unspecified; E11.9 Type 2 diabetes mellitus without complications; K21.9 Gastro-esophageal reflux disease without esophagitis; Z87.2 Personal history of diseases of the skin and subcutaneous tissue; E03.9 Hypothyroidism, unspecified; D64.9 Anemia, unspecified
CPT/HCPCS: 36591; 80053; 85025; 99214

== ENCOUNTER → 2021-06-22 11:52 | Day surgery (SDC) | payer MEDICARE, SELFPAY ==
[2021-06-22 12:17] VITALS: BP 100/59; PULSE 57; RESP 18; TEMP 36.1; O2SAT 97; BMI 23.7
[2021-06-22] MEDS: cosyntropin 0.25 mg SDV IVP (12:20)
[2021-06-22 12:53] LABS: Free T4 Free Thyroxine 1.82 ng/dL (0.82-1.77); Lactate Dehydrogenase 157 U/L (135-225); Thyroid Stimulating Hormone 3.19 uIU/mL (0.27-4.20)
[2021-06-22 12:54] LABS: Cosyntropin Baseline 2.23 mcg/dL
[2021-06-22 13:48] LABS: Cosyntropin 30 Minute 3.18 mcg/dL
[2021-06-22 14:11] LABS: Cosyntropin 1 Hour 3.58 mcg/dL
== END ==
PROVIDERS: PCP Internal Medicine; Visit Provider Internal Medicine Medical Oncology
DX: C77.4 Secondary and unspecified malignant neoplasm of inguinal and lower limb lymph nodes (principal); C43.71 Malignant melanoma of right lower limb, including hip; I10 Essential (primary) hypertension
CPT/HCPCS: 36591; 82533; 83615; 84439; 84443; 96374; J0834

== ENCOUNTER 2021-07-17 10:39 | Outpatient (CLI) | payer MEDICARE, SELFPAY ==
[2021-07-17 11:34] LABS: Basophils % 0.7 %; Eosinophils # 0.1 10^3/uL (0.0-0.8); Hematocrit 33.7 % (42.0-52.0); Hemoglobin 11.2 g/dL (11.7-16.6); Lymphocytes # 1.6 10^3/uL (0.8-4.8); Lymphocytes % 26.6 %; Mean Corpuscular HGB Conc 33.2 g/dL (30.0-36.0); Mean Corpuscular Hemoglobin 31.6 pg (28.0-34.0); Mean Corpuscular Volume 95.2 fl (80-94); Mean Platelet Volume 12.8 fL (7.4-10.4); Monocytes # 0.5 10^3/uL (0.2-0.9); Monocytes % 8.2 %; Neutrophils # 3.71 10^3/uL (1.8-7.7); Neutrophils % 62.2 %; Nucleated Red Blood Cells % 0 %; Platelet Count 68 10^3/cmm (130-400); Red Blood Count 3.54 10^6/uL (4.1-5.3); Red Cell Distribution Width 13.6 % (12.1-15.1)
[2021-07-17 11:58] LABS: Alanine Aminotransferase 23 U/L (0-41); Alkaline Phosphatase 87 IU/L (40-130); Anion Gap 15.4 (5-19); Aspartate Amino Transferase 17 U/L (0-40); Blood Urea Nitrogen 19 mg/dL (8-23); Calcium 8.1 mg/dL (8.5-10.5); Carbon Dioxide 27 mmol/L (22-29); Chloride 99 mmol/L (98-107); Globulin 1.9 g/dL (1.3-4.6); Glomerular Filtration Rate 85.2 mL/min (90-130); Glucose 214 mg/dL (65-115); Lactate Dehydrogenase 191 U/L (135-225); Osmolality Calculated 293 mOsm/kg (285-295); Potassium 4.4 mmol/L (3.5-5.1); Sodium 137 mmol/L (136-145); Total Bilirubin 0.3 mg/dL (0.15-1.2); Total Protein 5.9 g/dL (6.6-8.7)
[2021-07-17 13:00] LABS: Estmated Average Glucose 249; Hemoglobin A1C 10.3 % (4.0-6.0)
--- NOTE | 2021-07-18 06:31 | ONC FU_ITS ---
Dr. Sterling Patient Follow-Up Note Patient: Alfonso Grant Unit #: [id number]: 1955 Dicatated By: Robel Sterling M.D.Date of Visit:Jul 17, 2021 Onc Med Follow-up/Prog Note Chief Complaint: Melanoma. History of Present Illness: This is a 65 year-old man with melanoma of the right calcaneal region, stage IIIA (pT2a, pN2a, M0) at initial diagnosis in 2015, but with subsequent right inguinal lymph node recurrence. He had seen Dr. Ortiz in May 2016 after he had become aware of a change in a mole on his right heel. The initial biopsy showed melanoma with a Breslow depth of 1.6 mm with no ulcerations and no mitoses identified. He was referred to Dr. Messer in [place]. On 07/03/2016 he underwent wide excision with skin graft and with sentinel right inguinal lymph node biopsy. Pathology showed acral lentiginous melanoma measuring 1.4 x 1.4 cm. The residual tumor had a Breslow depth of 0.8 mm. There was no ulceration noted and there were 0 mitoses/square millimeter. A total of 3 sentinel lymph nodes were excised, 2 of which were positive for metastatic melanoma on SOX-10 and MART-1 stains. The largest size of metastatic focus measured 0.4 mm. MRI of the abdomen on 07/13/2016 showed no lymphadenopathy or other evidence of metastatic disease. PET/CT at that time also showed no evidence for metabolically active malignancy. On 07/24/2016 he underwent right inguinal lymph node dissection. There was no additional metastatic lymph node involvement. He had medical oncology consultation with Dr. Briseno, and he was recommended to consider adjuvant therapy with ipililumab. I had seen him for a second opinion evaluation on 09/10/2016. Given his high risk for recurrence, I also recommended the adjuvant therapy. He then proceeded with the high-dose ipililumab regimen, completing 4 cycles of treatment from 09/19/2016 through 11/20/2016. He experienced multiple toxicities with the treatment. During subsequent follow-up he had done well until October 2018 when his surveillance PET/CT showed a small focus of uptake in the subcutaneous tissue of the upper medial right thigh, suspicious for neoplastic involvement. There were no other sites of abnormal uptake on that study. He then underwent surgical resection of the involved area on 12/15/2018, pathology confirming metastatic melanoma. A BRAF mutation was not detected. He began treatment with nivolumab on 01/06/2019. Several days following his initial infusion he was admitted to the hospital with pneumonia/hypoxia. He developed atrial fibrillation/RVR, requiring cardioversion. He was discharged on 01/19/2019. His further treatment with nivolumab was delayed. On 01/26/2019 he was admitted to [facility] after presenting to the emergency room with respiratory distress. His chest x-ray showed development of moderate left pleural effusion with probable atelectasis or pneumonia of the left lower lobe. His echocardiogram showed loculated pericardial effusion with large bilateral pleural effusions. The pericardial effusion was noted to be more prominent towards the apex and it contained particulate material, suspicious for metastatic disease to the pericardium. He underwent thoracentesis. The pleural fluid studies included normal LDH and a negative Gram stain. The morphologic assessment showed benign appearing mesothelial cells in a background of mild mixed inflammation and blood. There was no atypia or malignancy seen. He was discharged home on 01/28/2019 on continued antibiotic coverage with Cefdnir 300 mg twice a day. His other medical illnesses include hypertension, hyperlipidemia, type II diabetes, and GERD. He also has a history of chronic urticaria. He has a very minimal smoking history, and he had quit smoking in 1980. He was seen her for a follow-up visit on 01/30/2019. He was still very weak, and he had very marginal performance status. He was still significantly anemic with his hemoglobin low at 9.2 g. He had low transferrin saturation 9.8%, consistent with iron deficiency. At that point he continued antibiotic therapy for the pneumonia. I opted to have him start empiric steroid therapy with prednisone, and he also began diuretic therapy with furosemide, as he had significant fluid retention. He returned on 02/12/2019 for parenteral iron replacement with Injectafer. Restaging PET/CT on 02/16/2018 showed no abnormal pulmonary parenchymal uptake. A small left pleural effusion showed no suspicious activity. There was no right pleural effusion noted and no pericardial effusion noted. There was no abnormal lymph node uptake, and no evidence for metabolically active malignancy. I had seen him for a follow-up visit on 02/19/2019. At that point he was feeling much better. He received his second infusion of Injectafer, and with the PET/CT showing no evidence of active malignancy, we opted to continue his treatment with nivolumab. On 03/04/2019 he returned for cycle 2 of nivolumab, administered at the 2-week dosing schedule. He tolerated it well, and he was then able to continue treatment at 2- week intervals. As of 02/16/2020 he received his 27th cycle of nivolumab at the 240 mg dosage, which completed a year of treatment. Restaging CT scans on 03/21/2020 showed no evidence for metastatic disease in the chest, abdomen, or pelvis. With those findings, he was followed on observation/expectant management. Head MRI on 12/15/2020 showed no evidence of metastatic disease. A repeat PET/CT showed an FDG avid lymph node in the left groin. With that finding he was referred to Dr. Messer, and he underwent left inguinal lymph node biopsy on 02/20/2021. Pathology showed benign fragments of fibroadipose tissue with acute inflammation and necrotic elements. There was no malignancy identified. Subsequent to that procedure, he developed a fluid collection in the left groin consistent with seroma, for which he underwent drainage procedure under ultrasound. He was given antibiotic coverage with Bactrim. I had then seen him for a follow-up visit on 03/24/2021. At that point he had shown a very significant decline in his performance status. He was significantly anemic with hemoglobin down to 8.7 g. His serum iron studies showed borderline low transferrin saturation at 21.5%, and with that finding I did opt to give him parenteral iron replacement with single infusion of Injectafer. I also opted to empirically restart steroid therapy. Based on his PET/CT findings he also had further evaluation with bone scan on 04/06/2021. It showed a focal punctate area of activity involving the right mandible. It was felt to most likely be due to odontogenic/dental disease, though metastatic involvement was not excluded. He then had dental evaluation, which included Panorex and CT. We received a verbal report that the CT showed suspicious findings in the right mandible, but for technical reasons we have not yet been able to view those images. He then had further evaluation with CT of the facial bones on 05/18/2021. It showed a well-circumscribed sclerotic lesion in the right mandible which appeared to correspond to the bone scan findings. It measured approximately 10.2 x 7.0 mm. There was no evidence of bony destruction. The findings were felt to be nonspecific and more likely to be associated with odontogenic disease rather than a metastatic lesion. At his follow-up visit in May 2021 he continued to have somewhat marginal performance status. He had further evaluation with a cosyntropin stimulation test, which showed inadequate response, consistent with adrenal insufficiency. His steroid was then changed to replacement therapy with hydrocortisone 5 mg 3 times daily. He is seen for a follow-up visit. He has been feeling pretty good generally. His energy is still just fair, but he is doing light work. ECOG score is 1. His appetite is good. His blood sugars have been running a little high again. He does not have fever or night sweats. He has not had sore mouth or throat. He does not complain of cough, and he has not been having shortness of breath or chest pain. He currently has no GI or complaints. He has been having some lower back pain. He also has had some headaches, and he has not been sleeping very well. He has no focal neurologic symptoms. Medications: Acetaminophen Extra Strength 1 - 2 Tablet (of 500 mg) Oral PRN, Carvedilol 1 Tablet (of 6.25 mg) Oral b.i.d., Cetirizine HCl 1 Tablet (of 10 mg) Oral four times a day PRN, Eliquis 1 Tablet (of 5 mg) Oral b.i.d., Furosemide 1 (20 mg) Tablet Oral daily, Gabapentin 3 Capsule (of 300 mg) Oral at bedtime, Hydrocortisone 1 Tablet (of 5 mg) Oral t.i.d., Levothyroxine Sodium 1 Tablet (of 25 mcg) Oral daily, Lipitor 1 (20 mg) Tablet Oral daily, Melatonin 1 (10 mg) Tablet Oral at bedtime, metFORMIN HCl 1 (750 mg) Tablet Oral daily, Omeprazole 1 Tablet (of 20 mg) Tablet, enteric coated Oral b.i.d., traZODone HCl (50 mg) Tablet Oral at bedtime Allergies: No Known Allergies. Vital Signs: Performed on Jul 17, 2021 10:56 Height - 69.00 in Weight - 170.8 lbs (HIGH) BSA - 1.93 sq.m BMI - 25.22 Temperature - 97.4 F (LOW) Pulse - 57 /min (LOW) Respiration - 16 /min BP - 124/69 mm(hg) O2 Sat - 99 % Pain - 4 Fatigue - 3 Physical Examination: Constitutional - He looks pretty good generally, Eyes - Sclerae nonicteric. Conjunctivae clear, ENMT - No lesions noted in the oral cavity, Hematologic/Lymphatic - No cervical, clavicular, or axillary adenopathy, Respiratory - Lungs sound clear, Cardiovascular - Heart rhythm is regular. There is no murmur, gallop, or rub noted, Abdomen - Soft. Liver and spleen are not enlarged. There is no abdominal mass noted and there is no obvious ascites. There is no inguinal mass or adenopathy noted, Extremities - There is mild swelling of the right leg, Neurologic - There are no focal neurologic deficits noted. Lab/Imaging: Test performed on Jul 17, 2021 11:21 LDH (Total) 191 U/L Sodium 137 mmol/L Potassium 4.4 mmol/L Chloride 99 mmol/L Est Avg Glucose (eAG) 249 mg/dL CO2 27 mmol/L Anion Gap 15.4 BUN 19 mg/dL Creatinine 0.9 mg/dL Cr Clearance (Est) 92.0600 mL/min eGFR 85.2 mL/min Glucose 214 mg/dL Osmolality - Calculated 293 mOsm/kg Calcium 8.1 mg/dL Protein, Total 5.9 g/dL Albumin 4.0 g/dL Globulin 1.9 g/dL Bilirubin, Total 0.3 mg/dL ALT (SGPT) 23 U/L AST (SGOT) 17 U/L Alkaline Phosphatase 87 IU/L Hemoglobin A1C % 10.3 % WBC 6.0 10 3/uL RBC 3.54 10 6/uL HGB 11.2 g/dL HCT 33.7 % MCV 95.2 fl MCH 31.6 pg MCHC 33.2 g/dL RDW 13.6 % Platelet Count 68 10 3/cmm MPV 12.8 fL Neutrophils 3.71 10 3/uL Lymphocytes 1.6 10 3/uL Monocytes 0.5 10 3/uL Eosinophils 0.1 10 3/uL Basophils 0.0 10 3/uL Neutrophil % 62.2 % Lymphocyte % 26.6 % Monocyte % 8.2 % Eosinophil % 2.0 % Basophils % 0.7 % NRBC % 0 % Problem List: 1. Melanoma involving the right calcaneal region, stage IIIA (pT2a, pN2a, M0) at initial diagnosis in 2015. 2. Hypertension. 3. Hyperlipidemia. 4. Type II diabetes. 5. GERD. 6. History of chronic urticaria. 7. Hypothyroidism. Problems Addressed with this Encounter and Plan: Patient with melanoma involving the right calcaneal region, stage IIIA (pT2a, pN2a, M0) at initial diagnosis in 2015. His intial treatment included biopsy in May 2016 followed by wide excision with skin graft and with sentinel right inguinal lymph node biopsy on 07/03/2016 followed by right inguinal lymph node dissection on 07/24/2016. He was given adjuvant therapy with ipililumab 10 mg/kg for 4 cycles, completed in October 2016. He experienced multiple toxicities with the treatment. In November 2018 he had biopsy-proven recurrence in the right inguinal lymph node. On 01/06/2019 he began treatment with nivolumab. Following his initial infusion of nivolumab he required admission to the hospital with pneumonia/hypoxia. His clinical course was complicated by atrial fibrillation/RVR, requiring cardioversion. His further treatment with nivolumab was delayed. He was then admitted admitted to the hospital again with respiratory distress. By echocardiogram he had bilateral pleural effusions and loculated pericardial effusion. The pericardial effusion was noted to contain particulate material, suspicious for metastatic disease. He underwent thoracentesis. There were no malignant cells seen in the pleural fluid. At his follow-up visit on 01/30/2019 he had very poor performance status, and he was still moderately anemic. His serum iron studies were consistent with iron deficiency. He continued antibiotic therapy for the pneumonia, and at that point I had him start empiric steroid therapy with prednisone. He began parenteral iron replacement with Injectafer on 02/12/2019. His restaging PET/CT on showed no evidence for active malignancy. On 03/04/2019 he continued with cycle 2 of nivolumab at the 2-week dosing schedule. He tolerated it well, and he then continued nivolumab at 240 mg IV every 2 weeks. During treatment he had to start thyroid replacement for hypothyroidism. He continued to have some ongoing fatigue, but he otherwised tolerate treatment well. As of 02/16/2020 he had received cycle 27 of nivolumab at the 240 mg dosage, which completed a full year of treatment. His restaging CT scans on 03/21/2020 showed no evidence of metastatic disease in the chest, abdomen, or pelvis. He then began on expectant management, and during follow-up he was able to successfully taper off prednisone. As of his follow-up visit in November 2020 he was reporting increased difficulty with balance, and he was showing some decline in performance status. His brain MRI showed no evidence of metastatic disease. A restaging PET/CT showed an FDG avid lymph node in the left groin, for which she underwent ultrasound-guided biopsy on 02/08/2021. Pathology was benign. The procedure was complicated by development of seroma, which required a drainage procedure and antibiotic therapy. At his follow-up visit on 03/24/2021 he had shown a significant decline in his performance status, he also was significantly anemic. I opted to empirically restart steroid therapy with prednisone. He also was given parenteral iron replacement with Injectafer. He felt much better generally after restarting on the steroid therapy, though it did caused a significant increase in his blood sugars. He eventually was able to control his blood sugar adequately with his Metformin ER dosage increased to 750 mg daily and with his prednisone dosage tapered. In the meantime, his bone scan on 04/06/2021 showed a focal area of increased activity involving the right mandible. CT of the facial bones on 05/18/2021 showed a well circumscribed sclerotic lesion in the right mandible which appeared to correspond to the bone scan findings. There was no associated bony destruction. The appearance was felt to be nonspecific and more consistent with odontogenic disease rather than a metastatic lesion. With those findings, he continued expectant management for the melanoma, though he continued to have somewhat marginal performance status. A cosyntropin stimulation test in May 2021 did show evidence of adrenal insufficiency, and his steroid was changed from prednisone to replacement hydrocortisone. Since then he has been feeling somewhat better generally, though he still has limited activity tolerance and his blood sugars have been high again. Thus far there has been no evidence of recurrence of the melanoma. He continues expectant management. He will continue his replacement hydrocortisone 5 mg 3 times daily. His metformin ER dosage will be increased to 1000 mg daily. I also will have him try increasing trazodone to 100 mg at bedtime. I will see him again in 3 months, or sooner as needed. Signed By: Robel Sterling M.D. <<Signature on File>>
== END 2021-07-17 10:40 | disposition home or self-care (01) ==
LOC: ONCMED 10:43
PROVIDERS: PCP Internal Medicine; Visit Provider Internal Medicine Medical Oncology
DX: C77.4 Secondary and unspecified malignant neoplasm of inguinal and lower limb lymph nodes (principal); Z85.820 Personal history of malignant melanoma of skin; I10 Essential (primary) hypertension; E78.5 Hyperlipidemia, unspecified; E11.9 Type 2 diabetes mellitus without complications; K21.9 Gastro-esophageal reflux disease without esophagitis; L50.8 Other urticaria; E03.9 Hypothyroidism, unspecified; Z79.899 Other long term (current) drug therapy
CPT/HCPCS: 36591; 80053; 83036; 83615; 85025; 99214

== ENCOUNTER 2021-08-16 12:56 | Outpatient (CLI) | payer MEDICARE, SELFPAY | END 2021-08-16 12:57 | disposition home or self-care (01) | LOC: ONCMED 12:58 | PROVIDERS: PCP Internal Medicine; Visit Provider Internal Medicine Medical Oncology | DX: Z45.2 Encounter for adjustment and management of vascular access device (principal) | CPT/HCPCS: 96523 ==

== ENCOUNTER → 2021-09-11 08:38 | Outpatient (BNVA) | payer MEDICARE, SELFPAY | PROVIDERS: PCP Internal Medicine; Referring Provider Internal Medicine Medical Oncology; Visit Provider Internal Medicine | DX: Z87.891 Personal history of nicotine dependence (principal); E03.9 Hypothyroidism, unspecified; E78.2 Mixed hyperlipidemia; E11.65 Type 2 diabetes mellitus with hyperglycemia | CPT/HCPCS: 80061; 84439; 84443; 99204 ==

== ENCOUNTER 2021-09-11 09:47 | Outpatient (CLI) | payer MEDICARE, SELFPAY ==
[2021-09-11 11:06] LABS: Chol HDL Ratio 3.14 mg/dL (1.0-5.00); Cholesterol 135 mg/dL (0-200); Free T4 Free Thyroxine 1.67 ng/dL (0.82-1.77); HDL Cholesterol 43 mg/dL (60-100); LDL Cholesterol Calculated 70 mg/dL (50-129); LDL HDL Ratio 1.63 RATIO (0.00-3.22); Triglycerides 109 mg/dL (0-150)
== END 2021-09-11 09:48 | disposition home or self-care (01) ==
LOC: LAB 09:51
PROVIDERS: PCP Internal Medicine; Visit Provider Internal Medicine
DX: E03.9 Hypothyroidism, unspecified (principal); E11.65 Type 2 diabetes mellitus with hyperglycemia; E78.2 Mixed hyperlipidemia
CPT/HCPCS: 80061; 84439; 84443

== ENCOUNTER 2021-09-19 13:53 | Outpatient (CLI) | payer MEDICARE, SELFPAY | END 2021-09-19 13:54 | disposition home or self-care (01) | PROVIDERS: PCP Internal Medicine; Visit Provider Internal Medicine Medical Oncology | DX: Z45.2 Encounter for adjustment and management of vascular access device (principal) | CPT/HCPCS: 96523 ==

== ENCOUNTER → 2021-09-28 11:53 | Day surgery (SDC) | payer MEDICARE, SELFPAY ==
[2021-09-28] MEDS: cosyntropin 0.25 mg SDV IVP (12:10)
[2021-09-28 12:22] VITALS: BP 120/71; PULSE 51; RESP 18; TEMP 36.7; O2SAT 98
[2021-09-28 12:46] LABS: Cosyntropin Baseline 0.19 mcg/dL
[2021-09-28 13:30] LABS: Cosyntropin 30 Minute 2.12 mcg/dL
[2021-09-28 14:30] LABS: Cosyntropin 1 Hour 2.53 mcg/dL
== END ==
PROVIDERS: PCP Internal Medicine; Visit Provider Internal Medicine
DX: E03.9 Hypothyroidism, unspecified (principal); E11.65 Type 2 diabetes mellitus with hyperglycemia; E78.2 Mixed hyperlipidemia
CPT/HCPCS: 36591; 82533; 96374; J0834

== ENCOUNTER 2021-10-19 11:51 | Outpatient (CLI) | payer MEDICARE, SELFPAY ==
[2021-10-19 12:29] LABS: Basophils % 0.4 %; Eosinophils # 0.2 10^3/uL (0.0-0.8); Eosinophils % 2.9 %; Hematocrit 33.1 % (42.0-52.0); Hemoglobin 11.5 g/dL (11.7-16.6); Lymphocytes # 1.4 10^3/uL (0.8-4.8); Lymphocytes % 26.1 %; Mean Corpuscular HGB Conc 34.7 g/dL (30.0-36.0); Mean Corpuscular Hemoglobin 32.6 pg (28.0-34.0); Mean Corpuscular Volume 93.8 fl (80-94); Mean Platelet Volume 10.2 fL (7.4-10.4); Monocytes # 0.4 10^3/uL (0.2-0.9); Monocytes % 7.4 %; Neutrophils # 3.31 10^3/uL (1.8-7.7); Nucleated Red Blood Cells % 0 %; Platelet Count 183 10^3/cmm (130-400); Red Blood Count 3.53 10^6/uL (4.1-5.3); Red Cell Distribution Width 12.3 % (12.1-15.1); White Blood Count 5.3 10^3/uL (4.0-10.0)
[2021-10-19 13:07] LABS: Estmated Average Glucose 160; Hemoglobin A1C 7.2 % (4.0-6.0)
[2021-10-19 13:09] LABS: Alanine Aminotransferase 16 U/L (0-41); Albumin Level 4.6 g/dL (3.5-5.2); Alkaline Phosphatase 63 IU/L (40-130); Anion Gap 14.4 (5-19); Aspartate Amino Transferase 17 U/L (0-40); Blood Urea Nitrogen 16 mg/dL (8-23); Calcium 9.5 mg/dL (8.5-10.5); Carbon Dioxide 28 mmol/L (22-29); Chloride 99 mmol/L (98-107); Glomerular Filtration Rate 75.2 mL/min (90-130); Glucose 173 mg/dL (65-115); Lactate Dehydrogenase 137 U/L (135-225); Osmolality Calculated 289 mOsm/kg (285-295); Potassium 4.4 mmol/L (3.5-5.1); Sodium 137 mmol/L (136-145); Thyroid Stimulating Hormone 2.11 uIU/mL (0.27-4.20); Total Bilirubin 0.3 mg/dL (0.15-1.2); Total Protein 6.6 g/dL (6.6-8.7)
--- NOTE | 2021-10-19 14:24 | US_ITS ---
WS: [id number] ULTRASOUND SOFT TISSUES RIGHT groin. HISTORY: MALIGNANT MELANOMA OF R LOWER LIMB,INCLUDING HIP COMPARISON: None available. TECHNIQUE: 2-D and color Doppler imaging is submitted. Ultrasound is directed to the RIGHT groin in the area of pain. There is a very tiny superficial hypoe choic area measuring 1.4 x 0.4 x 1.6 cm. No increased vascularity. This may be a small area of scar t issue or resolving edema. Very nonspecific in appearance. US/US soft tissue/extremity 50600 IMPRESSION: Very minimal soft tissue changes at the RIGHT groin are superficial. This may b e an area of scar formation. No increased vascularity.
--- NOTE | 2021-10-19 14:24 | USCV_ITS ---
Alfonso Grant Age: 66 Gender: M : 1955 Exam Date: 10/19/2021 14:45 Ordering Phys: Vonnie Ruff NP Technologist: Thomas Fischer Exam Location: [facility] – [place]_ Indication: MELIGNANT MELANOMA PROCEDURES: Venous duplex imaging was performed in only the right lower extremity. The following venous structures were evaluated: common femoral vein, profunda vein, proximal portion of the greater saphenous vein, superficial femoral vein, and the popliteal vein. In addition, the posterior tibial and peroneal trunk were evaluated. Serial compression, augmentation maneuvers, and spectral Doppler flow evaluation were performed. FINDINGS: Normal 2-D Doppler and augmentation and compressibility throughout the lower extremity venous structures. Additional imaging through the proximal calf veins also reveals no thrombus. Limited evaluation of the greater saphenous vein is patent with no thrombus. CONCLUSIONS No DVT right lower extremity. Dr. Bruna Goodman DO (Electronically Signed) Final Date: 19 October 2021 15:27 S
--- NOTE | 2021-10-22 16:42 | ONC FU_ITS ---
Vonnie Ruff Progress Note Patient: Alfonso Grant Unit #: [id number]: 1955 Dicatated By: Vonnei Ruff N.P.Date of Visit:Oct 19, 2021 Onc MED Follow-up/Prog Note Chief Complaint: Melanoma. History of Present Illness: This is a 65 year-old man with melanoma of the right calcaneal region, stage IIIA (pT2a, pN2a, M0) at initial diagnosis in 2015, but with subsequent right inguinal lymph node recurrence. He had seen Dr. Ortiz in May 2016 after he had become aware of a change in a mole on his right heel. The initial biopsy showed melanoma with a Breslow depth of 1.6 mm with no ulcerations and no mitoses identified. He was referred to Dr. Messer in [place]. On 07/03/2016 he underwent wide excision with skin graft and with sentinel right inguinal lymph node biopsy. Pathology showed acral lentiginous melanoma measuring 1.4 x 1.4 cm. The residual tumor had a Breslow depth of 0.8 mm. There was no ulceration noted and there were 0 mitoses/square millimeter. A total of 3 sentinel lymph nodes were excised, 2 of which were positive for metastatic melanoma on SOX-10 and MART-1 stains. The largest size of metastatic focus measured 0.4 mm. MRI of the abdomen on 07/13/2016 showed no lymphadenopathy or other evidence of metastatic disease. PET/CT at that time also showed no evidence for metabolically active malignancy. On 07/24/2016 he underwent right inguinal lymph node dissection. There was no additional metastatic lymph node involvement. He had medical oncology consultation with Dr. Briseno, and he was recommended to consider adjuvant therapy with ipililumab. I had seen him for a second opinion evaluation on 09/10/2016. Given his high risk for recurrence, I also recommended the adjuvant therapy. He then proceeded with the high-dose ipililumab regimen, completing 4 cycles of treatment from 09/19/2016 through 11/20/2016. He experienced multiple toxicities with the treatment. During subsequent follow-up he had done well until October 2018 when his surveillance PET/CT showed a small focus of uptake in the subcutaneous tissue of the upper medial right thigh, suspicious for neoplastic involvement. There were no other sites of abnormal uptake on that study. He then underwent surgical resection of the involved area on 12/15/2018, pathology confirming metastatic melanoma. A BRAF mutation was not detected. He began treatment with nivolumab on 01/06/2019. Several days following his initial infusion he was admitted to the hospital with pneumonia/hypoxia. He developed atrial fibrillation/RVR, requiring cardioversion. He was discharged on 01/19/2019. His further treatment with nivolumab was delayed. On 01/26/2019 he was admitted to [facility] after presenting to the emergency room with respiratory distress. His chest x-ray showed development of moderate left pleural effusion with probable atelectasis or pneumonia of the left lower lobe. His echocardiogram showed loculated pericardial effusion with large bilateral pleural effusions. The pericardial effusion was noted to be more prominent towards the apex and it contained particulate material, suspicious for metastatic disease to the pericardium. He underwent thoracentesis. The pleural fluid studies included normal LDH and a negative Gram stain. The morphologic assessment showed benign appearing mesothelial cells in a background of mild mixed inflammation and blood. There was no atypia or malignancy seen. He was discharged home on 01/28/2019 on continued antibiotic coverage with Cefdnir 300 mg twice a day. His other medical illnesses include hypertension, hyperlipidemia, type II diabetes, and GERD. He also has a history of chronic urticaria. He has a very minimal smoking history, and he had quit smoking in 1980. He was seen her for a follow-up visit on 01/30/2019. He was still very weak, and he had very marginal performance status. He was still significantly anemic with his hemoglobin low at 9.2 g. He had low transferrin saturation 9.8%, consistent with iron deficiency. At that point he continued antibiotic therapy for the pneumonia. I opted to have him start empiric steroid therapy with prednisone, and he also began diuretic therapy with furosemide, as he had significant fluid retention. He returned on 02/12/2019 for parenteral iron replacement with Injectafer. Restaging PET/CT on 02/16/2018 showed no abnormal pulmonary parenchymal uptake. A small left pleural effusion showed no suspicious activity. There was no right pleural effusion noted and no pericardial effusion noted. There was no abnormal lymph node uptake, and no evidence for metabolically active malignancy. I had seen him for a follow-up visit on 02/19/2019. At that point he was feeling much better. He received his second infusion of Injectafer, and with the PET/CT showing no evidence of active malignancy, we opted to continue his treatment with nivolumab. On 03/04/2019 he returned for cycle 2 of nivolumab, administered at the 2-week dosing schedule. He tolerated it well, and he was then able to continue treatment at 2- week intervals. As of 02/16/2020 he received his 27th cycle of nivolumab at the 240 mg dosage, which completed a year of treatment. Restaging CT scans on 03/21/2020 showed no evidence for metastatic disease in the chest, abdomen, or pelvis. With those findings, he was followed on observation/expectant management. Head MRI on 12/15/2020 showed no evidence of metastatic disease. A repeat PET/CT showed an FDG avid lymph node in the left groin. With that finding he was referred to Dr. Messer, and he underwent left inguinal lymph node biopsy on 02/20/2021. Pathology showed benign fragments of fibroadipose tissue with acute inflammation and necrotic elements. There was no malignancy identified. Subsequent to that procedure, he developed a fluid collection in the left groin consistent with seroma, for which he underwent drainage procedure under ultrasound. He was given antibiotic coverage with Bactrim. Dr. Sterling had then seen him for a follow-up visit on 03/24/2021. At that point he had shown a very significant decline in his performance status. He was significantly anemic with hemoglobin down to 8.7 g. His serum iron studies showed borderline low transferrin saturation at 21.5%, and with that finding I did opt to give him parenteral iron replacement with single infusion of Injectafer. Dr. Sterling also opted to empirically restart steroid therapy. Based on his PET/CT findings he also had further evaluation with bone scan on 04/06/2021. It showed a focal punctate area of activity involving the right mandible. It was felt to most likely be due to odontogenic/dental disease, though metastatic involvement was not excluded. He then had dental evaluation, which included Panorex and CT. We received a verbal report that the CT showed suspicious findings in the right mandible, but for technical reasons we have not yet been able to view those images. He then had further evaluation with CT of the facial bones on 05/18/2021. It showed a well-circumscribed sclerotic lesion in the right mandible which appeared to correspond to the bone scan findings. It measured approximately 10.2 x 7.0 mm. There was no evidence of bony destruction. The findings were felt to be nonspecific and more likely to be associated with odontogenic disease rather than a metastatic lesion. At his follow-up visit in May 2021 he continued to have somewhat marginal performance status. He had further evaluation with a cosyntropin stimulation test, which showed inadequate response, consistent with adrenal insufficiency. His steroid was then changed to replacement therapy with hydrocortisone 5 mg 3 times daily. Patient presents today for follow-up. He continues to have some moderate fatigue but is able to do chores around the house. His appetite has been good. His blood sugars have been pretty good. His hemoglobin A1c was 7.2. He denies sinus drainage or sore throat. No shortness of breath, cough, chest pain no nausea or vomiting. He is complaining of right inguinal pain and states he feels a lump there. He noticed it approximately a week ago. He has had previous surgeries in that area. He denies headaches or dizziness. Review Of Symptoms: See above. Past Medical History: Chronic urticaria Diabetes type II Gastroesophageal reflux disease Hyperlipidemia Hypertension Melanoma Past Surgical History: Thoracentesis Covid vaccine #2 moderna in 2020 Covid vaccine #1 moderna in 2020 Right inguinal lymph node biopsy/excision in 2019 Right inguinal lymph node dissection in 2017 Wide excision of melanoma with skin graft and sentinel right inguinal lymph node biopsy in 2017 Biopsy of skin lesion right heel in 2015 Arthroscopic right knee surgery in 2011 Left shoulder surgery in 2001 Right shoulder surgery in 1999 Tonsillectomy in 1962 - with adenoidectomy Allergies: No Known Allergies. Medications: Acetaminophen Extra Strength 1 - 2 Tablet (of 500 mg) Oral PRN Carvedilol 1 Tablet (of 6.25 mg) Oral b.i.d. Cetirizine HCl 1 Tablet (of 10 mg) Oral four times a day PRN Eliquis 1 Tablet (of 5 mg) Oral b.i.d. Furosemide 1 (20 mg) Tablet Oral daily Gabapentin 3 Capsule (of 300 mg) Oral at bedtime Hydrocortisone 1 Tablet (of 5 mg) Oral t.i.d. Levothyroxine Sodium 1 Tablet (of 50 mcg) Oral daily Lipitor 1 (20 mg) Tablet Oral daily Melatonin 1 (10 mg) Tablet Oral at bedtime metFORMIN HCl 2 (500 mg) Tablet Oral b.i.d. Omeprazole 1 Tablet (of 20 mg) Tablet, enteric coated Oral b.i.d. traZODone HCl (50 mg) Tablet Oral at bedtime Family History: Mr. Grant's father is : diabetes, and heart disease, and hypertension. His father has heart disease and diabetes, and he has been treated for colon cancer. He is still living at age 86. Mother has diabetes and dementia and is still living at age 86. His paternal grandfather also had colon cancer, and his paternal grandmother had breast cancer. A great grandfather on his father's side of melanoma. 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 Mr. Grant quit smoking 37 years ago but had smoked 0.5 packs/day for 3 years. He has a history of smoking 1/2 pack of cigarettes daily for 2-3 years. He quit smoking in 1980. He chews 1 can of chewing tobacco per week . He currently drinks 2 cans of beer daily. Physical Examination: Performed on Oct 19, 2021 13:28: Height - 69.00 in, Weight - 167.8 lbs (LOW), BSA - 1.92 sq.m, BMI - 24.78, Temperature - 98.5 F, Pulse - 56 /min (LOW), Respiration - 16 /min, BP - 113/68 mm(hg), O2 Sat - 99 %, Pain - 4, and Fatigue - 5. Performance Status: 1 - No physically strenuous activity, but ambulatory and able to carry out light or sedentary work (e.g. office work, light house work). (ECOG) Constitutional Alert, cooperative, oriented. Mood and affect appropriate. Appears close to chronological age. Well nourished. Well developed. Head Normocephalic; no scars. Hematologic/Lymphatic Right inguinal area with soft tissue mass and an enlarged lymph node approximately 1 cm. Mild tenderness. Respiratory Lungs are clear to auscultation without rhonchi or wheezing. Cardiovascular Regular rate and rhythm of heart without murmurs, gallops or rubs. Abdomen Non-tender, non-distended, no masses, ascites or hepatosplenomegaly. Good bowel sounds. No guarding or rebound tenderness. Musculoskeletal No tenderness or swelling, normal range of motion without obvious weakness. Psychiatric Alert and oriented times three. Coherent speech. Verbalizes understanding of our discussions today. Laboratory: Test performed on Oct 19, 2021 12:12 LDH (Total) 137 U/L Sodium 137 mmol/L TSH 2.11 uIU/mL Potassium 4.4 mmol/L Chloride 99 mmol/L Est Avg Glucose (eAG) 160 mg/dL CO2 28 mmol/L Anion Gap 14.4 BUN 16 mg/dL Creatinine 1.0 mg/dL Cr Clearance (Est) 80.34 mL/min eGFR 75.2 mL/min Glucose 173 mg/dL Osmolality - Calculated 289 mOsm/kg Calcium 9.5 mg/dL Protein, Total 6.6 g/dL Albumin 4.6 g/dL Globulin 2.0 g/dL Bilirubin, Total 0.3 mg/dL ALT (SGPT) 16 U/L AST (SGOT) 17 U/L Alkaline Phosphatase 63 IU/L Hemoglobin A1C % 7.2 % WBC 5.3 10 3/uL RBC 3.53 10 6/uL HGB 11.5 g/dL HCT 33.1 % MCV 93.8 fl MCH 32.6 pg MCHC 34.7 g/dL RDW 12.3 % Platelet Count 183 10 3/cmm MPV 10.2 fL Neutrophils 3.31 10 3/uL Lymphocytes 1.4 10 3/uL Monocytes 0.4 10 3/uL Eosinophils 0.2 10 3/uL Basophils 0.0 10 3/uL Neutrophil % 63.0 % Lymphocyte % 26.1 % Monocyte % 7.4 % Eosinophil % 2.9 % Basophils % 0.4 % NRBC % 0 % Test performed on May 04, 2021 09:44 Ferritin 708 ng/mL Iron 95 mcg/dL Iron Binding Capacity (TIBC) 214 mcg/dl % Iron Saturation 44.3 % UIBC 119 mcg/dL Impression: 1. Melanoma involving the right calcaneal region, stage IIIA (pT2a, pN2a, M0) at initial diagnosis in 2015. 2. Hypertension. 3. Hyperlipidemia. 4. Type II diabetes. 5. GERD. 6. History of chronic urticaria. 7. Hypothyroidism. Plan: Patient with melanoma involving the right calcaneal region, stage IIIA (pT2a, pN2a, M0) at initial diagnosis in 2015. His intial treatment included biopsy in May 2016 followed by wide excision with skin graft and with sentinel right inguinal lymph node biopsy on 07/03/2016 followed by right inguinal lymph node dissection on 07/24/2016. He was given adjuvant therapy with ipililumab 10 mg/kg for 4 cycles, completed in October 2016. He experienced multiple toxicities with the treatment. In November 2018 he had biopsy-proven recurrence in the right inguinal lymph node. On 01/06/2019 he began treatment with nivolumab. Following his initial infusion of nivolumab he required admission to the hospital with pneumonia/hypoxia. His clinical course was complicated by atrial fibrillation/RVR, requiring cardioversion. His further treatment with nivolumab was delayed. He was then admitted admitted to the hospital again with respiratory distress. By echocardiogram he had bilateral pleural effusions and loculated pericardial effusion. The pericardial effusion was noted to contain particulate material, suspicious for metastatic disease. He underwent thoracentesis. There were no malignant cells seen in the pleural fluid. At his follow-up visit on 01/30/2019 he had very poor performance status, and he was still moderately anemic. His serum iron studies were consistent with iron deficiency. He continued antibiotic therapy for the pneumonia, and at that point I had him start empiric steroid therapy with prednisone. He began parenteral iron replacement with Injectafer on 02/12/2019. His restaging PET/CT on showed no evidence for active malignancy. On 03/04/2019 he continued with cycle 2 of nivolumab at the 2-week dosing schedule. He tolerated it well, and he then continued nivolumab at 240 mg IV every 2 weeks. During treatment he had to start thyroid replacement for hypothyroidism. He continued to have some ongoing fatigue, but he otherwised tolerate treatment well. As of 02/16/2020 he had received cycle 27 of nivolumab at the 240 mg dosage, which completed a full year of treatment. His restaging CT scans on 03/21/2020 showed no evidence of metastatic disease in the chest, abdomen, or pelvis. He then began on expectant management, and during follow-up he was able to successfully taper off prednisone. As of his follow-up visit in November 2020 he was reporting increased difficulty with balance, and he was showing some decline in performance status. His brain MRI showed no evidence of metastatic disease. A restaging PET/CT showed an FDG avid lymph node in the left groin, for which she underwent ultrasound-guided biopsy on 02/08/2021. Pathology was benign. The procedure was complicated by development of seroma, which required a drainage procedure and antibiotic therapy. At his follow-up visit on 03/24/2021 he had shown a significant decline in his performance status, he also was significantly anemic. I opted to empirically restart steroid therapy with prednisone. He also was given parenteral iron replacement with Injectafer. He felt much better generally after restarting on the steroid therapy, though it did caused a significant increase in his blood sugars. He eventually was able to control his blood sugar adequately with his Metformin ER dosage increased to 750 mg daily and with his prednisone dosage tapered. In the meantime, his bone scan on 04/06/2021 showed a focal area of increased activity involving the right mandible. CT of the facial bones on 05/18/2021 showed a well circumscribed sclerotic lesion in the right mandible which appeared to correspond to the bone scan findings. There was no associated bony destruction. The appearance was felt to be nonspecific and more consistent with odontogenic disease rather than a metastatic lesion. With those findings, he continued expectant management for the melanoma, though he continued to have somewhat marginal performance status. A cosyntropin stimulation test in May 2021 did show evidence of adrenal insufficiency, and his steroid was changed from prednisone to replacement hydrocortisone. Patient presents today for follow-up. He has been feeling well for the most part. He has started having some pain in the right inguinal area that he describes as dull and occurs on and off. It started about a week ago. We will obtain an ultrasound to further evaluate the area and determine further course of treatment. He will return to the clinic in [address] Sterling or sooner if needed. Signed By: Vonnie Ruff N.P. <<Signature on File>>
== END 2021-10-19 11:52 | disposition home or self-care (01) ==
PROVIDERS: PCP Internal Medicine; Visit Provider Nurse Practitioner Family
DX: C43.71 Malignant melanoma of right lower limb, including hip (principal); C79.89 Secondary malignant neoplasm of other specified sites
CPT/HCPCS: 36591; 76882; 80053; 83036; 83615; 84443; 85025; 93971; 99214

== ENCOUNTER 2021-11-16 11:57 | Oncology outpatient (recurring) (ONCR) | payer MEDICARE, SELFPAY ==
[2021-11-16 12:48] LABS: Basophils % 0.6 %; Eosinophils # 0.2 10^3/uL (0.0-0.8); Eosinophils % 3.1 %; Hematocrit 33.6 % (42.0-52.0); Hemoglobin 11.5 g/dL (11.7-16.6); Lymphocytes # 1.6 10^3/uL (0.8-4.8); Lymphocytes % 30.7 %; Mean Corpuscular HGB Conc 34.2 g/dL (30.0-36.0); Mean Corpuscular Hemoglobin 32.2 pg (28.0-34.0); Mean Corpuscular Volume 94.1 fl (80-94); Monocytes # 0.5 10^3/uL (0.2-0.9); Monocytes % 8.8 %; Neutrophils % 56.6 %; Nucleated Red Blood Cells % 0 %; Platelet Count 173 10^3/cmm (130-400); Red Blood Count 3.57 10^6/uL (4.1-5.3); Red Cell Distribution Width 12.5 % (12.1-15.1); White Blood Count 5.1 10^3/uL (4.0-10.0)
[2021-11-16 13:14] LABS: Alanine Aminotransferase 15 U/L (0-41); Albumin Level 4.7 g/dL (3.5-5.2); Alkaline Phosphatase 67 IU/L (40-130); Anion Gap 14.9 (5-19); Aspartate Amino Transferase 22 U/L (0-40); Blood Urea Nitrogen 20 mg/dL (8-23); Carbon Dioxide 26 mmol/L (22-29); Chloride 99 mmol/L (98-107); Globulin 2.7 g/dL (1.3-4.6); Glomerular Filtration Rate 75.2 mL/min (90-130); Glucose 133 mg/dL (65-115); Osmolality Calculated 287 mOsm/kg (285-295); Potassium 3.9 mmol/L (3.5-5.1); Sodium 136 mmol/L (136-145); Total Bilirubin 0.4 mg/dL (0.15-1.2); Total Protein 7.4 g/dL (6.6-8.7)
== END 2021-11-28 23:59 | disposition home or self-care (01) ==
PROVIDERS: Nurse Practitioner Family; PCP Internal Medicine; Visit Provider Internal Medicine Medical Oncology
DX: C43.71 Malignant melanoma of right lower limb, including hip (principal)
CPT/HCPCS: 36591; 80053; 85025; 99214; 99999

== ENCOUNTER → 2021-12-11 10:45 | Outpatient (BNVA) | payer MEDICARE, SELFPAY | PROVIDERS: PCP Internal Medicine; Visit Provider Internal Medicine | DX: E11.65 Type 2 diabetes mellitus with hyperglycemia (principal); E03.9 Hypothyroidism, unspecified; E78.2 Mixed hyperlipidemia; Z79.84 Long term (current) use of oral hypoglycemic drugs; Z87.891 Personal history of nicotine dependence | CPT/HCPCS: 99214 ==

== ENCOUNTER 2021-12-20 14:25 | Oncology outpatient (recurring) (ONCR) | payer MEDICARE, SELFPAY | END 2021-12-28 23:59 | disposition home or self-care (01) | PROVIDERS: PCP Internal Medicine; Visit Provider Internal Medicine Medical Oncology | DX: C43.71 Malignant melanoma of right lower limb, including hip (principal) | CPT/HCPCS: 96523 ==

== ENCOUNTER 2022-01-22 08:23 | Oncology outpatient (recurring) (ONCR) | payer MEDICARE, SELFPAY ==
[2022-01-22 08:37] VITALS: BP 109/71; PULSE 64; RESP 18; TEMP 36.7; O2SAT 98
== END 2022-01-28 23:59 | disposition home or self-care (01) ==
PROVIDERS: PCP Internal Medicine; Visit Provider Internal Medicine Medical Oncology
DX: Z45.2 Encounter for adjustment and management of vascular access device (principal); C43.71 Malignant melanoma of right lower limb, including hip
CPT/HCPCS: 96523

== ENCOUNTER 2022-02-19 10:53 | Oncology outpatient (recurring) (ONCR) | payer MEDICARE, SELFPAY ==
[2022-02-19 11:23] LABS: Basophils % 0.6 %; Eosinophils # 0.2 10^3/uL (0.0-0.8); Eosinophils % 2.8 %; Hematocrit 33.5 % (42.0-52.0); Hemoglobin 11.7 g/dL (11.7-16.6); Lymphocytes # 1.5 10^3/uL (0.8-4.8); Lymphocytes % 27.2 %; Mean Corpuscular HGB Conc 34.9 g/dL (30.0-36.0); Mean Corpuscular Hemoglobin 32.9 pg (28.0-34.0); Mean Corpuscular Volume 94.1 fl (80-94); Mean Platelet Volume 9.6 fL (7.4-10.4); Monocytes # 0.4 10^3/uL (0.2-0.9); Monocytes % 7.7 %; Neutrophils # 3.28 10^3/uL (1.8-7.7); Neutrophils % 61.3 %; Nucleated Red Blood Cells % 0 %; Platelet Count 185 10^3/cmm (130-400); Red Blood Count 3.56 10^6/uL (4.1-5.3); Red Cell Distribution Width 11.9 % (12.1-15.1); White Blood Count 5.3 10^3/uL (4.0-10.0)
[2022-02-19 11:34] LABS: Estmated Average Glucose 160; Hemoglobin A1C 7.2 % (4.0-6.0)
[2022-02-19 12:02] LABS: Alanine Aminotransferase 14 U/L (0-41); Albumin Level 4.6 g/dL (3.5-5.2); Alkaline Phosphatase 64 U/L (40-130); Anion Gap 14.5 (5-19); Aspartate Amino Transferase 18 U/L (0-40); Blood Urea Nitrogen 13 mg/dL (8-23); Carbon Dioxide 29 mmol/L (22-29); Chloride 95 mmol/L (98-107); Creatinine Clr Calc Pharmacy 94.8475; Globulin 2.3 g/dL (1.3-4.6); Glomerular Filtration Rate 97.3 mL/min (90-130); Glucose 181 mg/dL (65-115); Lactate Dehydrogenase 150 U/L (135-225); Osmolality Calculated 283 mOsm/kg (285-295); Potassium 4.5 mmol/L (3.5-5.1); Sodium 134 mmol/L (136-145); Thyroid Stimulating Hormone 1.38 uIU/mL (0.27-4.20); Total Bilirubin 0.5 mg/dL (0.15-1.2); Total Protein 6.9 g/dL (6.6-8.7)
== END 2022-02-28 23:59 | disposition home or self-care (01) ==
PROVIDERS: PCP Internal Medicine; Visit Provider Internal Medicine Medical Oncology
DX: Z08 Encounter for follow-up examination after completed treatment for malignant neoplasm; Z85.820 Personal history of malignant melanoma of skin; D50.9 Iron deficiency anemia, unspecified; E11.9 Type 2 diabetes mellitus without complications; R53.83 Other fatigue; Z79.52 Long term (current) use of systemic steroids; Z79.899 Other long term (current) drug therapy; Z92.21 Personal history of antineoplastic chemotherapy; Z92.25 Personal history of immunosuppression therapy; Z87.891 Personal history of nicotine dependence; Z79.4 Long term (current) use of insulin
CPT/HCPCS: 36591; 80053; 83036; 83615; 84443; 85025; 99214

== ENCOUNTER → 2022-03-13 08:14 | Outpatient (BNVA) | payer MEDICARE, SELFPAY | PROVIDERS: PCP Internal Medicine; Visit Provider Internal Medicine | DX: E11.65 Type 2 diabetes mellitus with hyperglycemia (principal); E78.2 Mixed hyperlipidemia; E03.9 Hypothyroidism, unspecified; Z79.84 Long term (current) use of oral hypoglycemic drugs | CPT/HCPCS: 99214 ==

== ENCOUNTER 2022-03-20 09:23 | Oncology outpatient (recurring) (ONCR) | payer MEDICARE, SELFPAY ==
[2022-03-20 09:32] VITALS: BP 144/81; PULSE 54; RESP 18; TEMP 36.7; O2SAT 98
== END 2022-03-30 23:59 | disposition home or self-care (01) ==
PROVIDERS: PCP Internal Medicine; Visit Provider Internal Medicine Medical Oncology
DX: Z45.2 Encounter for adjustment and management of vascular access device (principal)
CPT/HCPCS: 96523

== ENCOUNTER 2022-04-11 12:56 | Oncology outpatient (recurring) (ONCR) | payer MEDICARE, SELFPAY | END 2022-04-30 23:59 | disposition home or self-care (01) | PROVIDERS: PCP Internal Medicine; Visit Provider Internal Medicine Medical Oncology | DX: Z45.2 Encounter for adjustment and management of vascular access device (principal) | CPT/HCPCS: 96523 ==

== ENCOUNTER 2022-05-14 09:20 | Oncology outpatient (recurring) (ONCR) | payer MEDICARE, SELFPAY ==
[2022-05-14 09:30] VITALS: BP 135/77; PULSE 70; RESP 18; TEMP 36.2; O2SAT 97
== END 2022-05-30 23:59 | disposition home or self-care (01) ==
PROVIDERS: PCP Internal Medicine; Visit Provider Internal Medicine Medical Oncology
DX: Z45.2 Encounter for adjustment and management of vascular access device (principal)
CPT/HCPCS: 96523

== ENCOUNTER 2022-06-11 09:20 | Oncology outpatient (recurring) (ONCR) | payer MEDICARE, SELFPAY | END 2022-06-30 23:59 | disposition home or self-care (01) | PROVIDERS: PCP Internal Medicine; Visit Provider Internal Medicine Medical Oncology | DX: Z45.2 Encounter for adjustment and management of vascular access device (principal); Z95.828 Presence of other vascular implants and grafts; C43.71 Malignant melanoma of right lower limb, including hip | CPT/HCPCS: 96523 ==

== ENCOUNTER 2022-07-11 09:51 | Oncology outpatient (recurring) (ONCR) | payer MEDICARE, SELFPAY ==
[2022-07-11 10:06] VITALS: BP 164/89; PULSE 56; RESP 18; TEMP 36.1; O2SAT 97
== END 2022-07-31 23:59 | disposition home or self-care (01) ==
PROVIDERS: PCP Internal Medicine; Visit Provider Internal Medicine Medical Oncology
DX: Z45.2 Encounter for adjustment and management of vascular access device (principal)
CPT/HCPCS: 96523

== ENCOUNTER 2022-08-16 11:20 | Oncology outpatient (recurring) (ONCR) | payer MEDICARE, SELFPAY ==
[2022-08-16 11:55] LABS: Basophils % 0.2 %; Eosinophils # 0.1 10^3/uL (0.0-0.8); Eosinophils % 1.5 %; Hematocrit 34.1 % (42.0-52.0); Hemoglobin 11.7 g/dL (11.7-16.6); Lymphocytes # 1.2 10^3/uL (0.8-4.8); Lymphocytes % 20.4 %; Mean Corpuscular HGB Conc 34.3 g/dL (30.0-36.0); Mean Corpuscular Hemoglobin 32.7 pg (28.0-34.0); Mean Corpuscular Volume 95.3 fl (80-94); Mean Platelet Volume 9.8 fL (7.4-10.4); Monocytes # 0.4 10^3/uL (0.2-0.9); Monocytes % 7.1 %; Neutrophils # 4.15 10^3/uL (1.8-7.7); Neutrophils % 70.5 %; Nucleated Red Blood Cells % 0 %; Platelet Count 175 10^3/cmm (130-400); Red Blood Count 3.58 10^6/uL (4.1-5.3); White Blood Count 5.9 10^3/uL (4.0-10.0)
[2022-08-16 12:08] LABS: Estmated Average Glucose 194; Hemoglobin A1C 8.4 % (4.0-6.0)
[2022-08-16 12:25] LABS: Alanine Aminotransferase 17 U/L (0-41); Albumin Level 4.4 g/dL (3.5-5.2); Alkaline Phosphatase 65 U/L (40-130); Anion Gap 16.1 (5-19); Aspartate Amino Transferase 15 U/L (0-40); Blood Urea Nitrogen 14 mg/dL (8-23); Calcium 8.4 mg/dL (8.5-10.5); Carbon Dioxide 26 mmol/L (22-29); Chloride 97 mmol/L (98-107); Globulin 2.7 g/dL (1.3-4.6); Glomerular Filtration Rate 84.7 mL/min (90-130); Glucose 240 mg/dL (65-115); Lactate Dehydrogenase 145 U/L (135-225); Osmolality Calculated 288 mOsm/kg (285-295); Potassium 4.1 mmol/L (3.5-5.1); Sodium 135 mmol/L (136-145); Thyroid Stimulating Hormone 1.74 uIU/mL (0.27-4.20); Total Bilirubin 0.4 mg/dL (0.15-1.2); Total Protein 7.1 g/dL (6.6-8.7)
== END 2022-08-28 23:59 | disposition home or self-care (01) ==
PROVIDERS: PCP Internal Medicine; Visit Provider Internal Medicine Medical Oncology
DX: E03.9 Hypothyroidism, unspecified (principal); E11.9 Type 2 diabetes mellitus without complications; R53.83 Other fatigue; Z08 Encounter for follow-up examination after completed treatment for malignant neoplasm; Z85.820 Personal history of malignant melanoma of skin; Z92.25 Personal history of immunosuppression therapy; L50.9 Urticaria, unspecified; Z79.899 Other long term (current) drug therapy
CPT/HCPCS: 36591; 80053; 83036; 83615; 84443; 85025; 99214

== ENCOUNTER → 2022-08-20 08:23 | Outpatient (BNVA) | payer MEDICARE, SELFPAY | PROVIDERS: PCP Internal Medicine; Visit Provider Internal Medicine | DX: E11.65 Type 2 diabetes mellitus with hyperglycemia (principal); E03.9 Hypothyroidism, unspecified; E78.2 Mixed hyperlipidemia; Z79.890 Hormone replacement therapy; Z79.84 Long term (current) use of oral hypoglycemic drugs | CPT/HCPCS: 99214 ==

== ENCOUNTER 2022-09-13 14:19 | Oncology outpatient (recurring) (ONCR) | payer MEDICARE, SELFPAY | END 2022-09-28 23:59 | disposition home or self-care (01) | LOC: ONCMED 14:19 | PROVIDERS: PCP Internal Medicine; Visit Provider Internal Medicine Medical Oncology | DX: Z45.2 Encounter for adjustment and management of vascular access device | CPT/HCPCS: 96523 ==

== ENCOUNTER 2022-10-11 13:57 | Oncology outpatient (recurring) (ONCR) | payer MEDICARE, SELFPAY | END 2022-10-28 23:59 | disposition home or self-care (01) | PROVIDERS: PCP Internal Medicine; Visit Provider Internal Medicine Medical Oncology | DX: Z45.2 Encounter for adjustment and management of vascular access device (principal) | CPT/HCPCS: 96523 ==

== ENCOUNTER 2022-11-07 13:12 | Oncology outpatient (recurring) (ONCR) | payer MEDICARE, SELFPAY ==
[2022-11-07 14:42] LABS: Creatinine Urine, Random 91 mg/dL (39-259); Microalbum Creatinine Ratio Ur 11 mg/dL (0-20); Microalbumin Random Urine 1 ug/dL (0-20)
[2022-11-07 14:57] LABS: Alanine Aminotransferase 11 U/L (0-41); Albumin Level 4.4 g/dL (3.5-5.2); Alkaline Phosphatase 90 U/L (40-130); Anion Gap 15.9 (5-19); Aspartate Amino Transferase 15 U/L (0-40); Blood Urea Nitrogen 19 mg/dL (8-23); Calcium 9.1 mg/dL (8.5-10.5); Carbon Dioxide 28 mmol/L (22-29); Chloride 97 mmol/L (98-107); Chol HDL Ratio 4.88 mg/dL (1.0-5.00); Cholesterol 122 mg/dL (0-200); Globulin 2.8 g/dL (1.3-4.6); Glucose 155 mg/dL (65-115); HDL Cholesterol 25 mg/dL (60-100); LDL Cholesterol Calculated 61 mg/dL (50-129); LDL HDL Ratio 2.44 RATIO (0.00-3.22); Osmolality Calculated 289 mOsm/kg (285-295); Potassium 3.9 mmol/L (3.5-5.1); Sodium 137 mmol/L (136-145); Thyroid Stimulating Hormone 1.43 uIU/mL (0.27-4.20); Total Bilirubin 0.8 mg/dL (0.15-1.2); Total Protein 7.2 g/dL (6.6-8.7); Triglycerides 181 mg/dL (0-150)
[2022-11-07 15:28] LABS: Estmated Average Glucose 220; Hemoglobin A1C 9.3 % (4.0-6.0)
== END 2022-11-28 23:59 | disposition home or self-care (01) ==
LOC: ONCMED 13:13
PROVIDERS: Internal Medicine; PCP Internal Medicine; Visit Provider Internal Medicine Medical Oncology
DX: Z45.2 Encounter for adjustment and management of vascular access device (principal); C77.4 Secondary and unspecified malignant neoplasm of inguinal and lower limb lymph nodes; Z95.828 Presence of other vascular implants and grafts
CPT/HCPCS: 36591; 80053; 80061; 82044; 83036; 84439; 84443

== ENCOUNTER → 2022-11-15 08:32 | Outpatient (BNVA) | payer MEDICARE, SELFPAY | PROVIDERS: PCP Internal Medicine; Visit Provider Internal Medicine | DX: E11.65 Type 2 diabetes mellitus with hyperglycemia (principal); E03.9 Hypothyroidism, unspecified; E78.2 Mixed hyperlipidemia; Z79.890 Hormone replacement therapy; Z79.84 Long term (current) use of oral hypoglycemic drugs | CPT/HCPCS: 99214 ==

== ENCOUNTER 2022-12-06 13:40 | Oncology outpatient (recurring) (ONCR) | payer MEDICARE, SELFPAY ==
[2022-12-06 14:39] VITALS: BP 146/84; PULSE 65; RESP 16; TEMP 36.1; O2SAT 99
[2022-12-06 15:13] LABS: Free T4 Free Thyroxine 1.51 ng/dL (0.82-1.77); Thyroid Stimulating Hormone 1.41 uIU/mL (0.27-4.20)
[2022-12-08 11:44] LABS: T3 Total 85 ng/dL (76-181)
[2022-12-10 08:04] LABS: Thyroglobulin AB <1 IU/mL (< or = 1)
[2022-12-10 11:30] LABS: Thyroid Peroxidase Antobodies 1 IU/mL (<9)
== END 2022-12-28 23:59 | disposition home or self-care (01) ==
PROVIDERS: Internal Medicine; PCP Internal Medicine; Visit Provider Internal Medicine Medical Oncology
DX: C77.4 Secondary and unspecified malignant neoplasm of inguinal and lower limb lymph nodes (principal)
CPT/HCPCS: 36591; 84439; 84443; 84480; 86376; 86800; 96523; J1642

== ENCOUNTER 2023-01-08 09:40 | Oncology outpatient (recurring) (ONCR) | payer MEDICARE, SELFPAY ==
[2023-01-08 10:15] VITALS: BP 130/78; PULSE 68; RESP 18; TEMP 36.8; O2SAT 97
== END 2023-01-28 23:59 | disposition home or self-care (01) ==
PROVIDERS: PCP Internal Medicine; Visit Provider Internal Medicine Medical Oncology
DX: Z45.2 Encounter for adjustment and management of vascular access device (principal); C77.4 Secondary and unspecified malignant neoplasm of inguinal and lower limb lymph nodes; Z95.828 Presence of other vascular implants and grafts
CPT/HCPCS: 96523; J1642

== ENCOUNTER 2023-02-07 12:23 | Oncology outpatient (recurring) (ONCR) | payer MEDICARE, SELFPAY ==
[2023-02-07 13:26] LABS: Alanine Aminotransferase 18 U/L (0-41); Albumin Level 4.5 g/dL (3.5-5.2); Alkaline Phosphatase 74 U/L (40-130); Anion Gap 14.4 (5-19); Aspartate Amino Transferase 24 U/L (0-40); Blood Urea Nitrogen 15 mg/dL (8-23); Calcium 8.9 mg/dL (8.5-10.5); Carbon Dioxide 29 mmol/L (22-29); Chloride 98 mmol/L (98-107); Chol HDL Ratio 2.67 mg/dL (1.0-5.00); Cholesterol 136 mg/dL (0-200); Globulin 2.7 g/dL (1.3-4.6); Glucose 132 mg/dL (65-115); HDL Cholesterol 51 mg/dL (60-100); LDL Cholesterol Calculated 69 mg/dL (50-129); LDL HDL Ratio 1.35 RATIO (0.00-3.22); Lactate Dehydrogenase 140 U/L (135-225); Osmolality Calculated 287 mOsm/kg (285-295); Potassium 4.4 mmol/L (3.5-5.1); Sodium 137 mmol/L (136-145); Total Bilirubin 0.3 mg/dL (0.15-1.2); Total Protein 7.2 g/dL (6.6-8.7); Triglycerides 81 mg/dL (0-150)
[2023-02-07 13:39] LABS: Basophils % 0.4 %; Eosinophils # 0.4 10^3/uL (0.0-0.8); Eosinophils % 5.8 %; Hematocrit 34.9 % (42.0-52.0); Hemoglobin 11.7 g/dL (11.7-16.6); Lymphocytes # 1.5 10^3/uL (0.8-4.8); Lymphocytes % 22.7 %; Mean Corpuscular HGB Conc 33.5 g/dL (30.0-36.0); Mean Corpuscular Hemoglobin 30.5 pg (28.0-34.0); Mean Corpuscular Volume 91.1 fl (80-94); Mean Platelet Volume 9.8 fL (7.4-10.4); Monocytes # 0.4 10^3/uL (0.2-0.9); Monocytes % 6.6 %; Neutrophils # 4.28 10^3/uL (1.8-7.7); Neutrophils % 64.1 %; Nucleated Red Blood Cells % 0 %; Platelet Count 253 10^3/cmm (130-400); Red Blood Count 3.83 10^6/uL (4.1-5.3); Red Cell Distribution Width 13.1 % (12.1-15.1); White Blood Count 6.7 10^3/uL (4.0-10.0)
[2023-02-07 13:44] LABS: Estmated Average Glucose 197; Hemoglobin A1C 8.5 % (4.0-6.0)
[2023-02-07 13:47] LABS: Creatinine Urine, Random 30 mg/dL (39-259); Microalbum Creatinine Ratio Ur 33 mg/dL (0-20); Microalbumin Random Urine 1 ug/dL (0-20)
[2023-02-07 14:12] LABS: Free T4 Free Thyroxine 1.57 ng/dL (0.82-1.77)
[2023-02-07 14:47] LABS: Thyroid Stimulating Hormone 2.34 uIU/mL (0.27-4.20)
[2023-02-08 07:54] LABS: T3 Total 84 ng/dL (76-181)
[2023-02-11 10:50] LABS: Thyroglobulin AB <1 IU/mL (< or = 1); Thyroid Peroxidase Antobodies 2 IU/mL (<9)
== END 2023-02-28 23:59 | disposition home or self-care (01) ==
PROVIDERS: Internal Medicine; PCP Internal Medicine; Visit Provider Internal Medicine Medical Oncology
DX: C43.71 Malignant melanoma of right lower limb, including hip; C77.4 Secondary and unspecified malignant neoplasm of inguinal and lower limb lymph nodes; E11.9 Type 2 diabetes mellitus without complications; Z79.4 Long term (current) use of insulin; Z79.899 Other long term (current) drug therapy; Z79.52 Long term (current) use of systemic steroids
CPT/HCPCS: 36591; 80053; 80061; 82044; 83036; 83615; 84439; 84443; 84480; 85025; 86376; 86800; 99213; 99214; J1642

== ENCOUNTER 2023-03-20 09:28 | Oncology outpatient (recurring) (ONCR) | payer MEDICARE, SELFPAY ==
[2023-03-20 10:10] VITALS: BP 149/84; PULSE 64; RESP 16; TEMP 36.7; O2SAT 96
[2023-03-20 10:17] LABS: Basophils % 0.2 %; Eosinophils # 0.2 10^3/uL (0.0-0.8); Eosinophils % 4.7 %; Hematocrit 31.4 % (37-53); Lymphocytes # 1.1 10^3/uL (0.8-4.8); Lymphocytes % 25.6 %; Mean Corpuscular HGB Conc 34.4 g/dL (30-55); Mean Corpuscular Hemoglobin 31.6 pg (27-33); Mean Corpuscular Volume 91.8 fl (82-101); Mean Platelet Volume 9.5 fL (7.4-10.4); Monocytes # 0.3 10^3/uL (0.2-0.9); Monocytes % 6.6 %; Neutrophils # 2.66 10^3/uL (1.8-7.7); Neutrophils % 62.7 %; Nucleated Red Blood Cells % 0 %; Platelet Count 208 10^3/cmm (157-399); Red Blood Count 3.42 10^6/uL (3.85-5.65); Red Cell Distribution Width 12.8 % (12.1-15.1); White Blood Count 4.25 10^3/uL (3.29-11.43)
[2023-03-20 10:58] LABS: Alanine Aminotransferase 19 U/L (0-41); Albumin Level 4.3 g/dL (3.5-5.2); Alkaline Phosphatase 70 U/L (40-130); Anion Gap 12.2 (5-19); Aspartate Amino Transferase 21 U/L (0-40); Blood Urea Nitrogen 14 mg/dL (8-23); Calcium 8.8 mg/dL (8.5-10.5); Carbon Dioxide 26 mmol/L (22-29); Chloride 103 mmol/L (98-107); Globulin 2.7 g/dL (1.3-4.6); Glucose 155 mg/dL (65-115); Osmolality Calculated 288 mOsm/kg (285-295); Potassium 4.2 mmol/L (3.5-5.1); Sodium 137 mmol/L (136-145); Thyroid Stimulating Hormone 2.58 uIU/mL (0.27-4.20); Total Bilirubin 0.3 mg/dL (0.15-1.2)
[2023-03-20] MEDS: nivo-relat 12mg-4mg/mL 40 ML in sodium chloride 0.9% 250 ML 580 ML IV (12:39)
[2023-03-20 13:35] VITALS: BP 151/88; PULSE 57; O2SAT 98
== END 2023-03-20 23:59 | disposition home or self-care (01) ==
PROVIDERS: PCP Internal Medicine; Visit Provider Internal Medicine Medical Oncology
DX: Z51.11 Encounter for antineoplastic chemotherapy; C43.71 Malignant melanoma of right lower limb, including hip; C77.4 Secondary and unspecified malignant neoplasm of inguinal and lower limb lymph nodes; E11.65 Type 2 diabetes mellitus with hyperglycemia; Z79.84 Long term (current) use of oral hypoglycemic drugs; Z53.9 Procedure and treatment not carried out, unspecified reason
CPT/HCPCS: 80053; 84443; 85025; 96413; 99214; J1642; J7050; J9298

== ENCOUNTER 2023-04-30 10:45 | Oncology outpatient (recurring) (ONCR) | payer MEDICARE, SELFPAY ==
[2023-04-17 08:23] VITALS: BP 80/51; PULSE 69; RESP 16; TEMP 36.8; O2SAT 99
[2023-04-17 08:38] LABS: Eosinophils # 0.2 10^3/uL (0.0-0.8); Eosinophils % 5.6 %; Hematocrit 30.7 % (37-53); Lymphocytes # 0.9 10^3/uL (0.8-4.8); Lymphocytes % 20.6 %; Mean Corpuscular HGB Conc 33.9 g/dL (30-55); Mean Corpuscular Hemoglobin 30.7 pg (27-33); Mean Corpuscular Volume 90.6 fl (82-101); Mean Platelet Volume 9.5 fL (7.4-10.4); Monocytes # 0.3 10^3/uL (0.2-0.9); Monocytes % 6.5 %; Neutrophils # 2.77 10^3/uL (1.8-7.7); Neutrophils % 67.1 %; Nucleated Red Blood Cells % 0 %; Platelet Count 210 10^3/cmm (157-399); Red Blood Count 3.39 10^6/uL (3.85-5.65); Red Cell Distribution Width 12.3 % (12.1-15.1); White Blood Count 4.13 10^3/uL (3.29-11.43)
[2023-04-17 09:07] LABS: Alanine Aminotransferase 8 U/L (0-41); Albumin Level 3.9 g/dL (3.5-5.2); Alkaline Phosphatase 82 U/L (40-130); Anion Gap 22.2 (5-19); Aspartate Amino Transferase 13 U/L (0-40); Blood Urea Nitrogen 40 mg/dL (8-23); Calcium 8.9 mg/dL (8.5-10.5); Carbon Dioxide 21 mmol/L (22-29); Chloride 94 mmol/L (98-107); Globulin 3.2 g/dL (1.3-4.6); Glomerular Filtration Rate 28.7 mL/min (90-130); Glucose 94 mg/dL (65-115); Osmolality Calculated 286 mOsm/kg (285-295); Potassium 4.2 mmol/L (3.5-5.1); Sodium 133 mmol/L (136-145); Thyroid Stimulating Hormone 4.32 uIU/mL (0.27-4.20); Total Bilirubin 0.6 mg/dL (0.15-1.2); Total Protein 7.1 g/dL (6.6-8.7)
[2023-04-17] MEDS: sodium chloride 0.9% 1,000 ML 999 ML IV ×2 (11:35→13:17)
[2023-04-17] MEDS: hydrocortisone 100 mg/2 mL SDV IVP (11:36)
[2023-04-17 12:50] VITALS: BP 99/65; PULSE 137; RESP 18; TEMP 36.1; O2SAT 99
[2023-04-17 14:33] VITALS: BP 94/67; PULSE 118; RESP 17; TEMP 36.3; O2SAT 99
[2023-04-18 07:55] VITALS: BP 118/65; PULSE 66; RESP 16; TEMP 36.9; O2SAT 98
[2023-04-18] MEDS: sodium chloride 0.9% 1,000 ML 999 ML IV (08:00)
[2023-04-18] MEDS: hydrocortisone 100 mg/2 mL SDV IVP (08:13)
[2023-04-18 09:25] VITALS: BP 117/72; PULSE 67; RESP 16; TEMP 36.6; O2SAT 98
[2023-04-19 08:14] VITALS: BP 118/69; PULSE 59; RESP 16; TEMP 36.8; O2SAT 98
[2023-04-19 08:27] LABS: Eosinophils # 0.1 10^3/uL (0.0-0.8); Eosinophils % 2.5 %; Hematocrit 26.5 % (37-53); Lymphocytes # 1.2 10^3/uL (0.8-4.8); Lymphocytes % 26.9 %; Mean Corpuscular Hemoglobin 30.9 pg (27-33); Mean Corpuscular Volume 91.1 fl (82-101); Mean Platelet Volume 9.8 fL (7.4-10.4); Monocytes # 0.3 10^3/uL (0.2-0.9); Monocytes % 6.4 %; Neutrophils # 2.81 10^3/uL (1.8-7.7); Nucleated Red Blood Cells % 0 %; Platelet Count 182 10^3/cmm (157-399); Red Blood Count 2.91 10^6/uL (3.85-5.65); Red Cell Distribution Width 12.5 % (12.1-15.1); White Blood Count 4.39 10^3/uL (3.29-11.43)
[2023-04-19 09:04] LABS: Alanine Aminotransferase 8 U/L (0-41); Albumin Level 3.5 g/dL (3.5-5.2); Alkaline Phosphatase 72 U/L (40-130); Anion Gap 14.6 (5-19); Aspartate Amino Transferase 10 U/L (0-40); Blood Urea Nitrogen 27 mg/dL (8-23); Calcium 8.2 mg/dL (8.5-10.5); Carbon Dioxide 22 mmol/L (22-29); Chloride 104 mmol/L (98-107); Globulin 2.7 g/dL (1.3-4.6); Glomerular Filtration Rate 67.2 mL/min (90-130); Glucose 303 mg/dL (65-115); Osmolality Calculated 300 mOsm/kg (285-295); Potassium 3.6 mmol/L (3.5-5.1); Sodium 137 mmol/L (136-145); Total Bilirubin 0.2 mg/dL (0.15-1.2); Total Protein 6.2 g/dL (6.6-8.7)
[2023-04-30 09:17] LABS: Basophils % 0.3 %; Eosinophils # 0.2 10^3/uL (0.0-0.8); Eosinophils % 1.8 %; Hematocrit 32.7 % (37-53); Lymphocytes # 1.9 10^3/uL (0.8-4.8); Mean Corpuscular HGB Conc 33.6 g/dL (30-55); Mean Corpuscular Hemoglobin 30.9 pg (27-33); Mean Corpuscular Volume 91.9 fl (82-101); Mean Platelet Volume 9.7 fL (7.4-10.4); Monocytes # 0.5 10^3/uL (0.2-0.9); Monocytes % 5.3 %; Neutrophils # 6.81 10^3/uL (1.8-7.7); Neutrophils % 72.4 %; Nucleated Red Blood Cells % 0 %; Platelet Count 280 10^3/cmm (157-399); Red Blood Count 3.56 10^6/uL (3.85-5.65); Red Cell Distribution Width 13.2 % (12.1-15.1); White Blood Count 9.41 10^3/uL (3.29-11.43)
[2023-04-30 09:44] LABS: Alanine Aminotransferase 8 U/L (0-41); Albumin Level 4.2 g/dL (3.5-5.2); Alkaline Phosphatase 62 U/L (40-130); Anion Gap 13.8 (5-19); Aspartate Amino Transferase 8 U/L (0-40); Blood Urea Nitrogen 25 mg/dL (8-23); Calcium 9.3 mg/dL (8.5-10.5); Carbon Dioxide 29 mmol/L (22-29); Chloride 98 mmol/L (98-107); Globulin 2.5 g/dL (1.3-4.6); Glomerular Filtration Rate 84.7 mL/min (90-130); Glucose 184 mg/dL (65-115); Osmolality Calculated 293 mOsm/kg (285-295); Potassium 3.8 mmol/L (3.5-5.1); Sodium 137 mmol/L (136-145); Thyroid Stimulating Hormone 2.61 uIU/mL (0.27-4.20); Total Bilirubin 0.3 mg/dL (0.15-1.2); Total Protein 6.7 g/dL (6.6-8.7)
[2023-04-30] MEDS: sodium chloride 0.9% 250 ML 75 ML IV (12:10)
[2023-04-30] MEDS: nivolumab 240 MG in sodium chloride 0.9% 250 ML 548 MG IV (12:12)
[2023-04-30 13:02] VITALS: BP 166/88; PULSE 57; TEMP 36.1; O2SAT 99
== END 2023-04-30 23:59 | disposition home or self-care (01) ==
PROVIDERS: PCP Internal Medicine; Visit Provider Internal Medicine Medical Oncology
DX: C43.71 Malignant melanoma of right lower limb, including hip (principal); C77.4 Secondary and unspecified malignant neoplasm of inguinal and lower limb lymph nodes; Z79.899 Other long term (current) drug therapy; Z51.11 Encounter for antineoplastic chemotherapy
CPT/HCPCS: 80053; 84443; 85025; 96360; 96361; 96365; 96375; 96413; 99214; J1642; J1720; J7030; J7050; J9299

== ENCOUNTER 2023-05-21 09:00 | Oncology outpatient (recurring) (ONCR) | payer MEDICARE, SELFPAY ==
[2023-05-06 09:27] VITALS: BP 101/64; PULSE 100; RESP 16; TEMP 37.1; O2SAT 94
[2023-05-06 09:52] LABS: Basophils % 0.1 %; Eosinophils # 0.1 10^3/uL (0.0-0.8); Eosinophils % 0.9 %; Hematocrit 34.9 % (37-53); Lymphocytes # 1.1 10^3/uL (0.8-4.8); Lymphocytes % 12.8 %; Mean Corpuscular Hemoglobin 30.7 pg (27-33); Mean Corpuscular Volume 93.3 fl (82-101); Mean Platelet Volume 10.3 fL (7.4-10.4); Monocytes # 0.4 10^3/uL (0.2-0.9); Neutrophils # 7.15 10^3/uL (1.8-7.7); Nucleated Red Blood Cells % 0 %; Platelet Count 217 10^3/cmm (157-399); Red Blood Count 3.74 10^6/uL (3.85-5.65); Red Cell Distribution Width 13.3 % (12.1-15.1); White Blood Count 8.73 10^3/uL (3.29-11.43)
[2023-05-06 10:14] LABS: Alanine Aminotransferase 8 U/L (0-41); Albumin Level 3.9 g/dL (3.5-5.2); Alkaline Phosphatase 68 U/L (40-130); Anion Gap 14.1 (5-19); Aspartate Amino Transferase 9 U/L (0-40); Blood Urea Nitrogen 17 mg/dL (8-23); Calcium 8.5 mg/dL (8.5-10.5); Carbon Dioxide 28 mmol/L (22-29); Chloride 99 mmol/L (98-107); Globulin 2.4 g/dL (1.3-4.6); Glucose 262 mg/dL (65-115); Osmolality Calculated 295 mOsm/kg (285-295); Potassium 4.1 mmol/L (3.5-5.1); Sodium 137 mmol/L (136-145); Total Bilirubin 0.8 mg/dL (0.15-1.2); Total Protein 6.3 g/dL (6.6-8.7)
[2023-05-21 08:58] VITALS: BP 162/83; PULSE 61; RESP 16; TEMP 36.6; O2SAT 99
[2023-05-21 09:14] LABS: Basophils % 0.1 %; Eosinophils # 0.1 10^3/uL (0.0-0.8); Eosinophils % 0.9 %; Lymphocytes # 1.1 10^3/uL (0.8-4.8); Lymphocytes % 11.1 %; Mean Corpuscular HGB Conc 34.3 g/dL (30-55); Mean Corpuscular Hemoglobin 31.3 pg (27-33); Mean Corpuscular Volume 91.4 fl (82-101); Mean Platelet Volume 10.2 fL (7.4-10.4); Monocytes # 0.5 10^3/uL (0.2-0.9); Monocytes % 5.2 %; Nucleated Red Blood Cells % 0 %; Platelet Count 180 10^3/cmm (157-399); Red Blood Count 3.83 10^6/uL (3.85-5.65); Red Cell Distribution Width 13.2 % (12.1-15.1); White Blood Count 9.64 10^3/uL (3.29-11.43)
[2023-05-21 09:29] LABS: Alanine Aminotransferase 9 U/L (0-41); Albumin Level 4.3 g/dL (3.5-5.2); Alkaline Phosphatase 63 U/L (40-130); Aspartate Amino Transferase 8 U/L (0-40); Blood Urea Nitrogen 22 mg/dL (8-23); Calcium 9.3 mg/dL (8.5-10.5); Carbon Dioxide 27 mmol/L (22-29); Chloride 96 mmol/L (98-107); Globulin 2.4 g/dL (1.3-4.6); Glomerular Filtration Rate 84.7 mL/min (90-130); Glucose 325 mg/dL (65-115); Osmolality Calculated 294 mOsm/kg (285-295); Sodium 134 mmol/L (136-145); Total Bilirubin 0.5 mg/dL (0.15-1.2); Total Protein 6.7 g/dL (6.6-8.7)
[2023-05-21 09:34] LABS: Anion Gap 15.3 (5-19); Potassium 4.3 mmol/L (3.5-5.1)
[2023-05-22 08:43] LABS: Magnesium 1.8 mg/dL (1.7-2.3)
== END 2023-05-30 23:59 | disposition home or self-care (01) ==
PROVIDERS: Internal Medicine; Internal Medicine Medical Oncology; PCP Internal Medicine; Visit Provider Nurse Practitioner Family
DX: C43.71 Malignant melanoma of right lower limb, including hip (principal); C77.4 Secondary and unspecified malignant neoplasm of inguinal and lower limb lymph nodes; Z79.899 Other long term (current) drug therapy; Z45.2 Encounter for adjustment and management of vascular access device; Z95.828 Presence of other vascular implants and grafts
CPT/HCPCS: 36591; 80053; 83735; 85025; 99213; 99214; J1642

== ENCOUNTER 2023-06-07 07:51 | Oncology outpatient (recurring) (ONCR) | payer MEDICARE, SELFPAY ==
[2023-06-07 08:04] VITALS: BP 137/79; PULSE 72; RESP 16; TEMP 37.1; O2SAT 94
[2023-06-07 08:17] VITALS: BP 137/79; PULSE 72; RESP 17; TEMP 36.7; O2SAT 94
[2023-06-07 08:50] LABS: Creatinine Urine, Random 42 mg/dL (39-259); Microalbum Creatinine Ratio Ur 24 mg/dL (0-20); Microalbumin Random Urine 1 ug/dL (0-20)
[2023-06-07 08:51] LABS: Estmated Average Glucose 260; Hemoglobin A1C 10.7 % (4.0-6.0)
[2023-06-07 09:00] LABS: Alanine Aminotransferase 9 U/L (0-41); Albumin Level 3.7 g/dL (3.5-5.2); Alkaline Phosphatase 69 U/L (40-130); Anion Gap 12.1 (5-19); Aspartate Amino Transferase 10 U/L (0-40); Blood Urea Nitrogen 13 mg/dL (8-23); Calcium 9.1 mg/dL (8.5-10.5); Carbon Dioxide 30 mmol/L (22-29); Chloride 97 mmol/L (98-107); Chol HDL Ratio 3.49 mg/dL (1.0-5.00); Cholesterol 136 mg/dL (0-200); Free T4 Free Thyroxine 1.46 ng/dL (0.82-1.77); Globulin 2.4 g/dL (1.3-4.6); Glomerular Filtration Rate 113.2 mL/min (90-130); Glucose 174 mg/dL (65-115); HDL Cholesterol 39 mg/dL (60-100); LDL Cholesterol Calculated 74 mg/dL (50-129); Osmolality Calculated 284 mOsm/kg (285-295); Potassium 4.1 mmol/L (3.5-5.1); Sodium 135 mmol/L (136-145); Thyroid Stimulating Hormone 2.71 uIU/mL (0.27-4.20); Total Bilirubin 0.3 mg/dL (0.15-1.2); Total Protein 6.1 g/dL (6.6-8.7); Triglycerides 116 mg/dL (0-150)
== END 2023-06-30 23:59 | disposition home or self-care (01) ==
LOC: ONCMED 07:52
PROVIDERS: Internal Medicine; PCP Internal Medicine; Visit Provider Nurse Practitioner Family
DX: E11.65 Type 2 diabetes mellitus with hyperglycemia; E78.2 Mixed hyperlipidemia; E03.9 Hypothyroidism, unspecified
CPT/HCPCS: 36591; 80053; 80061; 82044; 83036; 84439; 84443; J1642

== ENCOUNTER → 2023-06-14 08:20 | Outpatient (BNVA) | payer MEDICARE, SELFPAY | PROVIDERS: PCP Internal Medicine; Visit Provider Internal Medicine | DX: E11.65 Type 2 diabetes mellitus with hyperglycemia; E78.2 Mixed hyperlipidemia; E03.9 Hypothyroidism, unspecified; Z79.84 Long term (current) use of oral hypoglycemic drugs; Z79.890 Hormone replacement therapy; Z79.4 Long term (current) use of insulin | CPT/HCPCS: 99214 ==

== ENCOUNTER 2023-07-19 09:58 | Oncology outpatient (recurring) (ONCR) | payer MEDICARE, SELFPAY ==
[2023-07-19 12:02] LABS: Basophils % 0.3 %; Eosinophils # 0.3 10^3/uL (0.0-0.8); Eosinophils % 3.7 %; Hematocrit 35.1 % (37-53); Lymphocytes # 1.3 10^3/uL (0.8-4.8); Lymphocytes % 17.7 %; Mean Corpuscular HGB Conc 32.8 g/dL (30-55); Mean Corpuscular Hemoglobin 30.6 pg (27-33); Mean Corpuscular Volume 93.4 fl (82-101); Mean Platelet Volume 8.9 fL (7.4-10.4); Monocytes # 0.4 10^3/uL (0.2-0.9); Monocytes % 5.9 %; Neutrophils # 5.28 10^3/uL (1.8-7.7); Nucleated Red Blood Cells % 0 %; Platelet Count 245 10^3/cmm (157-399); Red Blood Count 3.76 10^6/uL (3.85-5.65); Red Cell Distribution Width 13.3 % (12.1-15.1); White Blood Count 7.33 10^3/uL (3.29-11.43)
[2023-07-19 12:12] LABS: Erythrocyte Sedimentation Rate 15 mm/hr (0-10)
[2023-07-19 12:54] LABS: Alanine Aminotransferase 10 U/L (0-41); Albumin Level 4.2 g/dL (3.5-5.2); Alkaline Phosphatase 74 U/L (40-130); Anion Gap 13.4 (5-19); Aspartate Amino Transferase 11 U/L (0-40); Blood Urea Nitrogen 18 mg/dL (8-23); Calcium 9.4 mg/dL (8.5-10.5); Carbon Dioxide 30 mmol/L (22-29); Chloride 96 mmol/L (98-107); Globulin 2.9 g/dL (1.3-4.6); Glucose 104 mg/dL (65-115); Osmolality Calculated 282 mOsm/kg (285-295); Potassium 4.4 mmol/L (3.5-5.1); Sodium 135 mmol/L (136-145); Thyroid Stimulating Hormone 1.89 uIU/mL (0.27-4.20); Total Bilirubin 0.3 mg/dL (0.15-1.2); Total Protein 7.1 g/dL (6.6-8.7)
[2023-07-22 14:10] LABS: Thyroglobulin AB <1 IU/mL (< or = 1)
[2023-07-22 16:08] LABS: Anti-Nuclear Antibody Screen NEGATIVE (NEGATIVE)
[2023-07-22 16:35] LABS: Immunoglobulin E 678 kU/L (<OR=114)
[2023-07-29 16:58] LABS: Miscellaneous Test SEE COMMENTS
== END 2023-07-31 23:59 | disposition home or self-care (01) ==
LOC: ONCMED 09:58
PROVIDERS: PCP Internal Medicine; Visit Provider Nurse Practitioner Family
DX: L50.1 Idiopathic urticaria (principal); C77.4 Secondary and unspecified malignant neoplasm of inguinal and lower limb lymph nodes; E03.9 Hypothyroidism, unspecified
CPT/HCPCS: 36591; 80053; 82785; 83520; 84439; 84443; 85025; 85651; 86038; 86376; 86800; J1642

== ENCOUNTER 2023-08-23 09:54 | Oncology outpatient (recurring) (ONCR) | payer MEDICARE, SELFPAY | END 2023-08-29 23:59 | disposition home or self-care (01) | PROVIDERS: PCP Internal Medicine; Visit Provider Nurse Practitioner Family | DX: Z45.2 Encounter for adjustment and management of vascular access device (principal) | CPT/HCPCS: 96523; J1642 ==

== ENCOUNTER 2023-09-04 14:16 | Oncology outpatient (recurring) (ONCR) | payer MEDICARE, SELFPAY ==
[2023-09-04 14:57] LABS: Estmated Average Glucose 209; Hemoglobin A1C 8.9 % (4.0-6.0)
[2023-09-04 15:01] LABS: Creatinine Urine, Random 64 mg/dL (39-259); Microalbum Creatinine Ratio Ur 16 mg/dL (0-20); Microalbumin Random Urine 1 ug/dL (0-20)
[2023-09-04 15:11] LABS: Alanine Aminotransferase 19 U/L (0-41); Albumin Level 4.4 g/dL (3.5-5.2); Alkaline Phosphatase 82 U/L (40-130); Anion Gap 19.8 (5-19); Aspartate Amino Transferase 17 U/L (0-40); Blood Urea Nitrogen 18 mg/dL (8-23); Calcium 9.1 mg/dL (8.5-10.5); Carbon Dioxide 25 mmol/L (22-29); Chloride 94 mmol/L (98-107); Cholesterol 138 mg/dL (0-200); Free T4 Free Thyroxine 1.62 ng/dL (0.82-1.77); Globulin 3.1 g/dL (1.3-4.6); Glomerular Filtration Rate 84.4 mL/min (90-130); Glucose 161 mg/dL (65-115); HDL Cholesterol 30 mg/dL (60-100); LDL Cholesterol Calculated 56 mg/dL (50-129); LDL HDL Ratio 1.87 RATIO (0.00-3.22); Osmolality Calculated 283 mOsm/kg (285-295); Potassium 4.8 mmol/L (3.5-5.1); Sodium 134 mmol/L (136-145); Thyroid Stimulating Hormone 1.59 uIU/mL (0.27-4.20); Total Bilirubin 0.3 mg/dL (0.15-1.2); Total Protein 7.5 g/dL (6.6-8.7); Triglycerides 258 mg/dL (0-150)
[2023-09-09 11:09] LABS: Thyroglobulin AB <1 IU/mL (< or = 1); Thyroid Peroxidase Antobodies 2 IU/mL (<9)
== END 2023-09-29 23:59 | disposition home or self-care (01) ==
PROVIDERS: Internal Medicine; PCP Internal Medicine; Visit Provider Nurse Practitioner Family
DX: E11.65 Type 2 diabetes mellitus with hyperglycemia (principal); E78.2 Mixed hyperlipidemia; E03.9 Hypothyroidism, unspecified
CPT/HCPCS: 36591; 80053; 80061; 82044; 83036; 84439; 84443; 86376; 86800; J1642

== ENCOUNTER → 2023-09-16 10:54 | Outpatient (BNVA) | payer MEDICARE, SELFPAY | PROVIDERS: PCP Internal Medicine; Visit Provider Internal Medicine | DX: E11.65 Type 2 diabetes mellitus with hyperglycemia (principal); E11.9 Type 2 diabetes mellitus without complications; E78.2 Mixed hyperlipidemia; E03.9 Hypothyroidism, unspecified | CPT/HCPCS: 99214 ==

== ENCOUNTER 2023-10-04 09:53 | Oncology outpatient (recurring) (ONCR) | payer MEDICARE, SELFPAY | END 2023-10-29 23:59 | disposition home or self-care (01) | LOC: ONCMED 09:54 | PROVIDERS: PCP Internal Medicine; Visit Provider Nurse Practitioner Family | DX: Z45.2 Encounter for adjustment and management of vascular access device (principal) | CPT/HCPCS: 96523 ==

== ENCOUNTER 2023-11-27 14:30 | Oncology outpatient (recurring) (ONCR) | payer MEDICARE, SELFPAY ==
[2023-11-27 15:11] LABS: Estmated Average Glucose 240
[2023-11-27 15:36] LABS: Alanine Aminotransferase 22 U/L (0-41); Alkaline Phosphatase 97 U/L (40-130); Anion Gap 15.5 (5-19); Aspartate Amino Transferase 20 U/L (0-40); Blood Urea Nitrogen 19 mg/dL (8-23); Carbon Dioxide 25 mmol/L (22-29); Chloride 101 mmol/L (98-107); Cholesterol 143 mg/dL (0-200); Free T4 Free Thyroxine 1.27 ng/dL (0.82-1.77); Globulin 2.9 g/dL (1.3-4.6); Glucose 221 mg/dL (65-115); HDL Cholesterol 42 mg/dL (60-100); LDL Cholesterol Calculated 73 mg/dL (50-129); LDL HDL Ratio 1.74 RATIO (0.00-3.22); Osmolality Calculated 293 mOsm/kg (285-295); Potassium 4.5 mmol/L (3.5-5.1); Sodium 137 mmol/L (136-145); Thyroid Stimulating Hormone 1.27 uIU/mL (0.27-4.20); Total Bilirubin 0.5 mg/dL (0.15-1.2); Total Protein 6.9 g/dL (6.6-8.7); Triglycerides 142 mg/dL (0-150)
[2023-11-27 15:50] LABS: Creatinine Urine, Random 59 mg/dL (39-259); Microalbum Creatinine Ratio Ur 17 mg/dL (0-20); Microalbumin Random Urine 1 ug/dL (0-20)
== END 2023-11-29 23:59 | disposition home or self-care (01) ==
PROVIDERS: Internal Medicine; PCP Internal Medicine; Visit Provider Internal Medicine Medical Oncology
DX: Z53.9 Procedure and treatment not carried out, unspecified reason (principal); E78.2 Mixed hyperlipidemia; E03.9 Hypothyroidism, unspecified; E11.65 Type 2 diabetes mellitus with hyperglycemia
CPT/HCPCS: 36591; 80053; 80061; 82044; 83036; 84439; 84443; 96523

== ENCOUNTER → 2023-11-28 07:55 | Outpatient (BNVA) | payer MEDICARE, SELFPAY | PROVIDERS: PCP Internal Medicine; Visit Provider Internal Medicine | DX: E11.65 Type 2 diabetes mellitus with hyperglycemia; E78.2 Mixed hyperlipidemia; E03.9 Hypothyroidism, unspecified; Z79.4 Long term (current) use of insulin; Z79.890 Hormone replacement therapy | CPT/HCPCS: 99214 ==

== ENCOUNTER 2023-12-13 11:03 | Oncology outpatient (recurring) (ONCR) | payer MEDICARE, SELFPAY ==
[2023-12-13 12:02] LABS: Alanine Aminotransferase 20 U/L (0-41); Albumin Level 4.5 g/dL (3.5-5.2); Alkaline Phosphatase 91 U/L (40-130); Anion Gap 15.9 (5-19); Aspartate Amino Transferase 19 U/L (0-40); Blood Urea Nitrogen 22 mg/dL (8-23); Calcium 9.3 mg/dL (8.5-10.5); Carbon Dioxide 26 mmol/L (22-29); Chloride 100 mmol/L (98-107); Globulin 2.7 g/dL (1.3-4.6); Glomerular Filtration Rate 74.8 mL/min (90-130); Glucose 211 mg/dL (65-115); Osmolality Calculated 294 mOsm/kg (285-295); Potassium 4.9 mmol/L (3.5-5.1); Sodium 137 mmol/L (136-145); Total Bilirubin 0.5 mg/dL (0.15-1.2); Total Protein 7.2 g/dL (6.6-8.7)
[2023-12-15 07:35] LABS: C-Peptide 0.44 ng/mL (0.80-3.85)
[2023-12-21 20:49] LABS: GAD 65 IA-2 Antibody 31.4 U/mL (<5.4); GAD Insulin Autoantibody <0.4 U/mL (<0.4); Glutamic Acid Decarboxylase 65 <5 IU/mL (<5)
== END 2023-12-29 23:59 | disposition home or self-care (01) ==
PROVIDERS: Internal Medicine; PCP Internal Medicine; Visit Provider Internal Medicine Medical Oncology
DX: Z45.2 Encounter for adjustment and management of vascular access device (principal); E11.65 Type 2 diabetes mellitus with hyperglycemia; E78.2 Mixed hyperlipidemia; E03.9 Hypothyroidism, unspecified; Z79.4 Long term (current) use of insulin; Z79.84 Long term (current) use of oral hypoglycemic drugs; Z79.890 Hormone replacement therapy
CPT/HCPCS: 36591; 80053; 84681; 86337; 86341; 99214

== ENCOUNTER 2023-12-31 08:38 | Oncology outpatient (recurring) (ONCR) | payer MEDICARE, SELFPAY | END 2024-01-29 23:59 | disposition home or self-care (01) | PROVIDERS: PCP Internal Medicine; Visit Provider Internal Medicine Medical Oncology | DX: Z45.2 Encounter for adjustment and management of vascular access device (principal); Z53.9 Procedure and treatment not carried out, unspecified reason ==

== ENCOUNTER → 2024-01-06 08:54 | Outpatient (BNVA) | payer MEDICARE, SELFPAY | PROVIDERS: PCP Internal Medicine; Visit Provider Internal Medicine | DX: E10.65 Type 1 diabetes mellitus with hyperglycemia; E78.2 Mixed hyperlipidemia; E03.9 Hypothyroidism, unspecified; Z79.4 Long term (current) use of insulin; Z79.890 Hormone replacement therapy | CPT/HCPCS: 99214 ==

== ENCOUNTER 2024-02-04 10:22 | Oncology outpatient (recurring) (ONCR) | payer MEDICARE, SELFPAY | END 2024-02-29 23:59 | disposition home or self-care (01) | PROVIDERS: PCP Internal Medicine; Visit Provider Internal Medicine Medical Oncology | DX: Z45.2 Encounter for adjustment and management of vascular access device (principal) | CPT/HCPCS: 96523 ==

== ENCOUNTER 2024-03-03 13:47 | Oncology outpatient (recurring) (ONCR) | payer MEDICARE, SELFPAY ==
[2024-03-03 14:35] LABS: Alanine Aminotransferase 23 U/L (0-41); Albumin Level 4.5 g/dL (3.5-5.2); Alkaline Phosphatase 53 U/L (40-130); Anion Gap 14.6 (5-19); Aspartate Amino Transferase 24 U/L (0-40); Blood Urea Nitrogen 25 mg/dL (8-23); Calcium 9.1 mg/dL (8.5-10.5); Carbon Dioxide 27 mmol/L (22-29); Chloride 101 mmol/L (98-107); Chol HDL Ratio 3.26 mg/dL (1.0-5.00); Cholesterol 163 mg/dL (0-200); Globulin 2.3 g/dL (1.3-4.6); Glomerular Filtration Rate 74.8 mL/min (90-130); Glucose 93 mg/dL (65-115); HDL Cholesterol 50 mg/dL (60-100); LDL Cholesterol Calculated 103 mg/dL (50-129); LDL HDL Ratio 2.06 RATIO (0.00-3.22); Osmolality Calculated 290 mOsm/kg (285-295); Potassium 4.6 mmol/L (3.5-5.1); Sodium 138 mmol/L (136-145); Total Bilirubin 0.4 mg/dL (0.15-1.2); Total Protein 6.8 g/dL (6.6-8.7); Triglycerides 48 mg/dL (0-150)
[2024-03-03 14:38] LABS: Creatinine Urine, Random 21 mg/dL (39-259); Microalbumin Random Urine 1 ug/dL (0-20)
[2024-03-03 14:49] LABS: Microalbum Creatinine Ratio Ur 48 mg/dL (0-20)
[2024-03-04 01:10] LABS: Estmated Average Glucose 171; Hemoglobin A1C 7.6 % (4.0-6.0)
== END 2024-03-30 23:59 | disposition home or self-care (01) ==
PROVIDERS: Internal Medicine; PCP Internal Medicine; Visit Provider Internal Medicine Medical Oncology
DX: E11.65 Type 2 diabetes mellitus with hyperglycemia (principal); E78.2 Mixed hyperlipidemia; E03.9 Hypothyroidism, unspecified
CPT/HCPCS: 36591; 80053; 80061; 82044; 83036

== ENCOUNTER → 2024-03-11 08:15 | Outpatient (BNVA) | payer MEDICARE, SELFPAY | PROVIDERS: PCP Internal Medicine; Visit Provider Internal Medicine | DX: E11.65 Type 2 diabetes mellitus with hyperglycemia (principal); E78.2 Mixed hyperlipidemia; E03.9 Hypothyroidism, unspecified; Z79.4 Long term (current) use of insulin; Z79.84 Long term (current) use of oral hypoglycemic drugs | CPT/HCPCS: 99214 ==

== ENCOUNTER 2024-03-31 14:03 | Oncology outpatient (recurring) (ONCR) | payer MEDICARE, SELFPAY | END 2024-04-30 23:59 | disposition home or self-care (01) | PROVIDERS: PCP Internal Medicine; Visit Provider Internal Medicine Medical Oncology | DX: Z45.2 Encounter for adjustment and management of vascular access device | CPT/HCPCS: 96523 ==

== ENCOUNTER 2024-05-05 15:29 | Oncology outpatient (recurring) (ONCR) | payer MEDICARE, SELFPAY | END 2024-05-30 23:59 | disposition home or self-care (01) | LOC: ONCMED 15:30 | PROVIDERS: PCP Internal Medicine; Visit Provider Internal Medicine Medical Oncology | DX: Z45.2 Encounter for adjustment and management of vascular access device (principal) | CPT/HCPCS: 96523 ==

== ENCOUNTER 2024-06-02 08:22 | Outpatient (RCR) | payer MEDICARE, SELFPAY | END 2024-06-30 23:59 | disposition home or self-care (01) | LOC: SPT 08:22 | PROVIDERS: Visit Provider Radiology Radiation Oncology | DX: I89.0 Lymphedema, not elsewhere classified (principal) | CPT/HCPCS: 97140; 97161 ==

== ENCOUNTER 2024-06-02 13:48 | Oncology outpatient (recurring) (ONCR) | payer MEDICARE, SELFPAY ==
[2024-06-02 14:32] LABS: Creatinine Urine, Random 60 mg/dL (39-259); Microalbum Creatinine Ratio Ur 17 mg/dL (0-20); Microalbumin Random Urine 1 ug/dL (0-20)
[2024-06-02 14:33] LABS: Chol HDL Ratio 3.18 mg/dL (1.0-5.00); Cholesterol 175 mg/dL (0-200); HDL Cholesterol 55 mg/dL (60-100); LDL Cholesterol Calculated 95 mg/dL (50-129); LDL HDL Ratio 1.73 RATIO (0.00-3.22); Triglycerides 127 mg/dL (0-150)
[2024-06-02 14:36] LABS: Estmated Average Glucose 157; Hemoglobin A1C 7.1 % (4.0-6.0)
== END 2024-06-30 23:59 | disposition home or self-care (01) ==
PROVIDERS: Internal Medicine; PCP Internal Medicine; Visit Provider Internal Medicine Medical Oncology
DX: E03.9 Hypothyroidism, unspecified (principal); E11.65 Type 2 diabetes mellitus with hyperglycemia
CPT/HCPCS: 36591; 80061; 82044; 83036; 84439

== ENCOUNTER → 2024-06-10 07:57 | Outpatient (BNVA) | payer MEDICARE, SELFPAY | PROVIDERS: PCP Internal Medicine; Visit Provider Internal Medicine | DX: E11.65 Type 2 diabetes mellitus with hyperglycemia (principal); E78.2 Mixed hyperlipidemia; E03.9 Hypothyroidism, unspecified; Z79.4 Long term (current) use of insulin; Z79.890 Hormone replacement therapy | CPT/HCPCS: 99214 ==

== ENCOUNTER 2024-07-14 13:55 | Oncology outpatient (recurring) (ONCR) | payer MEDICARE, SELFPAY | END 2024-07-31 23:59 | disposition home or self-care (01) | PROVIDERS: PCP Internal Medicine; Visit Provider Internal Medicine Medical Oncology | DX: Z45.2 Encounter for adjustment and management of vascular access device (principal) | CPT/HCPCS: 96523 ==

== ENCOUNTER → 2024-09-10 08:11 | Outpatient (BNVA) | payer MEDICARE, SELFPAY | PROVIDERS: PCP Internal Medicine; Visit Provider Internal Medicine | DX: E10.9 Type 1 diabetes mellitus without complications (principal); E03.9 Hypothyroidism, unspecified; E78.2 Mixed hyperlipidemia | CPT/HCPCS: 99214 ==

== ENCOUNTER 2024-09-15 08:57 | Oncology outpatient (recurring) (ONCR) | payer MEDICARE, SELFPAY ==
[2024-09-07 14:16] LABS: Estmated Average Glucose 194; Hemoglobin A1C 8.4 % (4.0-6.0)
[2024-09-07 14:20] LABS: Alanine Aminotransferase 34 U/L (0-41); Albumin Level 4.4 g/dL (3.5-5.2); Alkaline Phosphatase 90 U/L (40-130); Aspartate Amino Transferase 27 U/L (0-40); Blood Urea Nitrogen 21 mg/dL (8-23); Carbon Dioxide 26 mmol/L (22-29); Chloride 100 mmol/L (98-107); Chol HDL Ratio 3.97 mg/dL (1.0-5.00); Cholesterol 155 mg/dL (0-200); Globulin 2.4 g/dL (1.3-4.6); Glomerular Filtration Rate 74.5 mL/min (90-130); Glucose 73 mg/dL (65-115); HDL Cholesterol 39 mg/dL (60-100); LDL Cholesterol Calculated 95 mg/dL (50-129); LDL HDL Ratio 2.44 RATIO (0.00-3.22); Osmolality Calculated 284 mOsm/kg (285-295); Sodium 136 mmol/L (136-145); Total Bilirubin 0.3 mg/dL (0.15-1.2); Total Protein 6.8 g/dL (6.6-8.7); Triglycerides 105 mg/dL (0-150)
[2024-09-07 14:34] LABS: Creatinine Urine, Random 43 mg/dL (39-259); Microalbum Creatinine Ratio Ur 23 mg/dL (0-20); Microalbumin Random Urine 1 ug/dL (0-20)
[2024-09-15 09:41] LABS: Glucose Fasting 315 mg/dL (74-106)
[2024-09-16 07:15] LABS: C-Peptide 1.53 ng/mL (0.80-3.85)
[2024-09-24 16:38] LABS: GAD 65 IA-2 Antibody 96.2 U/mL (<5.4); GAD Insulin Autoantibody 5.3 U/mL (<0.4); Glutamic Acid Decarboxylase 65 <5 IU/mL (<5); Zinc Transporter 8 AB <10 U/mL (<15)
== END 2024-09-28 23:59 | disposition home or self-care (01) ==
PROVIDERS: Internal Medicine; PCP Internal Medicine; Visit Provider Internal Medicine Medical Oncology
DX: Z53.9 Procedure and treatment not carried out, unspecified reason; E10.9 Type 1 diabetes mellitus without complications
CPT/HCPCS: 36591; 80053; 80061; 82044; 82947; 83036; 84681; 86337; 86341

== ENCOUNTER 2024-10-12 13:54 | Oncology outpatient (recurring) (ONCR) | payer MEDICARE, SELFPAY | END 2024-10-28 23:59 | disposition home or self-care (01) | PROVIDERS: PCP Internal Medicine; Visit Provider Internal Medicine Medical Oncology | DX: Z45.2 Encounter for adjustment and management of vascular access device (principal) | CPT/HCPCS: 96523 ==

== ENCOUNTER 2024-11-09 13:17 | Oncology outpatient (recurring) (ONCR) | payer MEDICARE, SELFPAY | END 2024-11-28 23:59 | disposition home or self-care (01) | LOC: ONCMED 13:18 | PROVIDERS: PCP Internal Medicine; Visit Provider Internal Medicine Medical Oncology | DX: Z45.2 Encounter for adjustment and management of vascular access device (principal) | CPT/HCPCS: 96523 ==

== ENCOUNTER 2024-12-07 13:22 | Oncology outpatient (recurring) (ONCR) | payer MEDICARE, SELFPAY | END 2024-12-28 23:59 | disposition home or self-care (01) | PROVIDERS: PCP Internal Medicine; Visit Provider Internal Medicine Medical Oncology | DX: Z45.2 Encounter for adjustment and management of vascular access device (principal); Z95.828 Presence of other vascular implants and grafts | CPT/HCPCS: 96523 ==

== ENCOUNTER 2024-12-31 07:52 | Oncology outpatient (recurring) (ONCR) | payer MEDICARE, SELFPAY | END 2025-01-28 23:59 | disposition home or self-care (01) | PROVIDERS: PCP Internal Medicine; Visit Provider Internal Medicine Medical Oncology | DX: Z45.2 Encounter for adjustment and management of vascular access device (principal); Z95.828 Presence of other vascular implants and grafts | CPT/HCPCS: 96523 ==

== ENCOUNTER 2025-02-01 13:18 | Oncology outpatient (recurring) (ONCR) | payer MEDICARE, SELFPAY | END 2025-02-28 23:59 | disposition home or self-care (01) | LOC: ONCMED 13:18 | PROVIDERS: PCP Internal Medicine; Visit Provider Internal Medicine Medical Oncology | DX: Z45.2 Encounter for adjustment and management of vascular access device (principal); Z95.828 Presence of other vascular implants and grafts | CPT/HCPCS: 96523 ==

== ENCOUNTER 2025-03-02 13:24 | Oncology outpatient (recurring) (ONCR) | payer MEDICARE, SELFPAY | END 2025-03-30 23:59 | disposition home or self-care (01) | LOC: ONCMED 13:24 | PROVIDERS: PCP Internal Medicine; Visit Provider Internal Medicine Medical Oncology | DX: Z45.2 Encounter for adjustment and management of vascular access device (principal); Z95.828 Presence of other vascular implants and grafts | CPT/HCPCS: 96523 ==

== ENCOUNTER 2025-05-03 12:44 | Oncology outpatient (recurring) (ONCR) | payer MEDICARE, SELFPAY ==
[2025-05-03 13:31] LABS: Hematocrit 32.9 % (37-53); Hemoglobin 10.90 g/dL (11.27-16.99); Mean Corpuscular HGB Conc 33.1 g/dL (30-55); Mean Corpuscular Hemoglobin 31.4 pg (27-33); Mean Corpuscular Volume 94.8 fl (82-101); Nucleated Red Blood Cells % 0 %; Platelet Count 211 10^3/cmm (157-399); Red Blood Count 3.47 10^6/uL (3.85-5.65); White Blood Count 5.80 10^3/uL (3.29-11.43)
[2025-05-03 13:54] LABS: Alanine Aminotransferase 32 U/L (0-41); Albumin Level 4.3 g/dL (3.5-5.2); Alkaline Phosphatase 95 U/L (40-130); Anion Gap 14.3 (5-19); Aspartate Amino Transferase 34 U/L (0-40); Blood Urea Nitrogen 11 mg/dL (8-23); Calcium 8.7 mg/dL (8.5-10.5); Carbon Dioxide 28 mmol/L (22-29); Chloride 101 mmol/L (98-107); Globulin 2.6 g/dL (1.3-4.6); Glucose 127 mg/dL (65-115); Magnesium 2.0 mg/dL (1.7-2.3); Osmolality Calculated 289 mOsm/kg (285-295); Potassium 4.3 mmol/L (3.5-5.1); Sodium 139 mmol/L (136-145); Total Protein 6.9 g/dL (6.6-8.7)
== END 2025-05-30 23:59 | disposition home or self-care (01) ==
LOC: ONCMED 12:45
PROVIDERS: PCP Internal Medicine; Visit Provider Internal Medicine Medical Oncology
DX: C43.71 Malignant melanoma of right lower limb, including hip (principal)
CPT/HCPCS: 36591; 80053; 82550; 83615; 83735; 85025